=== PATIENT | female | born 1955 | race Caucasian/White ===

== ENCOUNTER 2018-01-13 13:38 | Emergency (ER) | payer OTHER, SELFPAY ==
[2018-01-13 13:39] VITALS: BP 149/80; PULSE 64; RESP 16; TEMP 36.6; O2SAT 96; BMI 23.1
--- NOTE | 2018-01-13 13:54 | RAD_ITS ---
STUDY: X-RAY - RIGHT WRIST REASON FOR EXAM: Female, 62 years old. Status post fall TECHNIQUE: 3 view(s) of the wrist were obtained. COMPARISON: None. FINDINGS: Is a comminuted intra-articular fracture of the distal radius with fracture extending into the radioulnar and radiocarpal joints. There is volar apex angulation with dorsal tilt and fragmentation. There is a suggestion of a minimal fracture of the ulnar styloid process. There is questionably a cleft versus nondisplaced fracture of the scaphoid. There is widening of the scapholunate articulation suggesting a sprain of the scapholunate interosseous ligament. Normal carpometacarpal articulation of the thumb. Normal second through fifth carpometacarpal articulations. There is demineralization of the metacarpal bones. There is soft tissue swelling. RAD/Wrist min 3 Views IMPRESSION: Fracture of the distal radius with comminution and intra-articular extension. There is a cleft versus fracture of the scaphoid. There is a widened appearance of the scapholunate space compatible with strain and/or ligamentous injury. Punctate fracture fragment from the ulnar styloid process. Electronically Signed: Khadijah Loera MD at 14:46 EST Tel , Service support ,
--- NOTE | 2018-01-13 14:04 | ED.DCSUM_ITS ---
- ER Visit Summary Date of Service: 01/13/18 Chief Complaint: Fall and right wrist injury History of Present Illness: The patient is a 62 F [id number]. History of hypertension and hypothyroidism. Patient had no prior surgeries. States she slipped in the mud approximately an hour ago. She tried to catch herself and injured her right wrist. She believes it to be broken. She denies other injuries. She did not hit her head. She denies any LOC. No back pain nor hip pain. Physical Examination: Older female no acute distress. Vital signs are stable afebrile. H EENT exam atraumatic. Pupils round reactive light. No signs of trauma to her face or scalp. Nontender. C-spine and back nontender. Trachea midline. Lungs clear to auscultation bilaterally. Chest wall nontender. Heart regular rate and rhythm no murmur. Abdomen soft nontender. Pelvic girdle intact. Both lower extremities are nontender with normal range of motion. 5 out of 5 dorsi and plantar flexion. Left upper extremity is nontender with normal chief of planning strength. Her right shoulder, upper arm, elbow are all nontender. No deformities. Her right wrist has tenderness to palpation and appears to be deformed. She does have a palpable radial pulse. Skin is intact. She is able to wiggle her fingers and has normal touch sensation and cap refill to the right fingertips. Skin is intact. Neurologically she is awake and alert with no focal motor or sensory deficits. Test Results: Three-view right wrist x-ray shows distal comminuted radius fracture into the intra-articular joint. There is dorsal displacement. Radiologist commented on cannot rule out a scaphoid fracture. Emergency Department Course and Treatment: Patient treated with [place] for pain. Discussed options of splinting the fracture at its current position versus attempted reduction. Patient preferred reduction. She was consciously sedated with 60 mg IV of propofol. Discharge myself in a director [employer] of nursing were present in the room. He was able to manually reduce the fracture and placed the patient in a short arm AP Ortho-Glass splint. She will be placed in a sling. Patient woke up from the propofol without any difficulty. Her vital signs remained stable the entire time. Treatment Plan: Ice and elevate. Keep splint dry and clean. [place] and Motrin for pain and inflammation. Call and follow-up with Dr. Rae Buckner's office tomorrow and be seen this week. Disposition: Discharge Impression: Acute fall Acute right wrist distal radius fracture Conscious sedation by ER using propofol Fracture reduction by ER Short arm AP splint by ER This note was generated with [employer] dictation software. It may contain incorrect words, spelling, and punctuation that were not noted in review of the chart prior to signing ED Disposition - Plan for ED Patient: Disposition: Home or Assisted Living Chief Complaint: Upper Extremity Injury Instructions: ED Fx Wrist General Referrals: Rae Buckner, [STAFF PHYSICIAN] - As soon as possible Additional Instructions: Ice and elevate your right wrist. Keep the splint dry and clean. Motrin and [place] as needed for pain. Call and follow-up with Dr. Rae Buckner of orthopedics as soon as possible or any orthopedic surgeon of your choice.
--- NOTE | 2018-01-13 14:04 | ED.DEP ---
ED Disposition - Plan for ED Patient: Disposition: Home or Assisted Living Chief Complaint: Upper Extremity Injury Instructions: ED Fx Wrist General Prescriptions: Hydrocodone/Acetaminophen [[place] 5-325 Tablet] 1 ea PO Q4H PRN PRN 7 Days #20 tab PRN Reason: Pain Referrals: Rae Buckner DO [STAFF PHYSICIAN] - As soon as possible Additional Instructions: Ice and elevate your right wrist. Keep the splint dry and clean. Motrin and [place] as needed for pain. Call and follow-up with Dr. Rae Buckner of orthopedics as soon as possible or any orthopedic surgeon of your choice.
--- NOTE | 2018-01-13 14:07 | DCINST.ED_ITS ---
ED Disposition - Plan for ED Patient: Disposition: Home or Assisted Living Chief Complaint: Upper Extremity Injury Instructions: ED Fx Wrist General Prescriptions: Hydrocodone/Acetaminophen [[place] 5-325 Tablet] 1 ea PO Q4H PRN PRN 7 Days #20 ta b PRN Reason: Pain Referrals: Rae Buckner DO [STAFF PHYSICIAN] - As soon as possible Additional Instructions: Ice and elevate your right wrist. Keep the splint dry and clean. Motrin and [place] as needed for pain. Call and follow-up with Dr. Rae Buckner of orthopedics as soon as possible or any orthopedic surgeon of your choice.
[2018-01-13] MEDS: HYDROcodone Bitartrate/Apap 5/325 Tablet PO (14:16)
[2018-01-13 15:54] VITALS: BP 147/86; BP 154/87; BP 155/85; BP 159/88; PULSE 62; PULSE 67; PULSE 68; PULSE 75; RESP 16; RESP 17; RESP 21; RESP 22; O2SAT 100; O2SAT 98
[2018-01-13] MEDS: Propofol 200 MG/20 ML Vial IV BOLUS (15:55)
--- NOTE | 2018-01-13 16:05 | RAD_ITS ---
STUDY: X-RAY - RIGHT WRIST REASON FOR EXAM: Female, 62 years old. Post reduction TECHNIQUE: Two view(s) of the RIGHT wrist were obtained. COMPARISON: Right wrist images from the same day FINDINGS: Bones: Cortical disruption is again seen in the distal radius. Joints: There are mild degenerative changes in the first CMC joint. Soft tissues: There is diffuse soft tissue swelling. Overlying cast or splint material is present. Foreign body: None RAD/Wrist 2 Views IMPRESSION: Improved alignment of the comminuted distal right radial fracture with intra-articular extension. There is no longer dorsal angulation of the distal aspect. Electronically Signed: Audra Ortiz MD at 18:27 EST Tel Direct: [phone], Service support ,
[2018-01-13 16:25] VITALS: BP 139/81; PULSE 73; RESP 19; O2SAT 97
--- NOTE | 2018-01-13 16:28 | DCINST.ED_ITS ---
ED Disposition - Plan for ED Patient: Disposition: Home or Assisted Living Chief Complaint: Upper Extremity Injury Instructions: ED Fx Wrist General Prescriptions: Hydrocodone/Acetaminophen [[place] 5-325 Tablet] 1 each PO Q4H PRN PRN #20 tablet PRN Reason: Pain Referrals: Rae Buckner DO [STAFF PHYSICIAN] - As soon as possible Additional Instructions: Ice and elevate your right wrist. Keep the splint dry and clean. Motrin and [place] as needed for pain. Call and follow-up with Dr. Rae Buckner of orthopedics as soon as possible or any orthopedic surgeon of your choice.
[2018-01-13 16:46] VITALS: RESP 16
--- NOTE | 2018-01-13 16:47 | ED.RN ---
REVIEWED D/C INSTRUCTIONS, FOLLOW UP CARE, PRESCRIPTIONS, AND S/S THAT WOULD WARRANT A RETURN TO THE ED WITH PT. PT VERBALIZED AN UNDERSTANDING AN DENIES FURTHER QUESTIONS FOR THIS RN. PT SKIN P/W/D, RESP EVEN AND UNLABORED, PT S&O X 3, NO DISTRESS NOTED. PT AMBULATED OUT OF ED, GAIT STEADY.
--- OUTSIDE RECORDS SUMMARY | 2018-03-08 23:51 | XMS RPT_ITS ---
:1955 Author Organization OHIP Care Team Providers Name Role Phone SUSAN BEE Attending Unavailable SUSAN BEE Primary Care Unavailable PABLO CALABRESE MD Attending Unavailable SUSAN BEE Primary Care Unavailable PABLO CALABRESE MD Attending Unavailable SUSAN BEE Primary Care Unavailable Rinku Mckeon Attending Unavailable Susan Bee Referring Unavailable Jayy Anderson Attending Unavailable Rae Buckner Referring Unavailable Susan Bee Primary Care Unavailable Johnathan Acevedo Attending Unavailable Rinku Mckeon Attending Unavailable Susan Bee Referring Unavailable Rae Buckner Attending Unavailable Rae Buckner Referring Unavailable Susan Bee Primary Care Unavailable Edwin Gonzalez Consulting Unavailable Rae Buckner Attending Unavailable PROBLEMS PROBLEMS DATE TYPE CONDITION / CODE ATTENDING STATUS SOURCE 01/28/2018 Unknown S52.571A - Other Ch[place], Active [facility] intraarticular Rae [facility] fracture of lower end Hospital of right radius, Repository initial encounter for closed fracture / S52.571A(ICD-10) 01/25/2018 Unknown R00.1 - Bradycardia, Monica, Jayy Active [facility] unspecified / Community R00.1(ICD-10) Hospital Repository 01/25/2018 Unknown R94.31 - Abnormal [place], [place] Active [facility] electrocardiogram Community [ECG] [EKG] / Hospital R94.31(ICD-10) Repository 01/13/2018 Unknown S62.101A - Fracture of Acevedo, Active [facility] unspecified carpal Johnathan [facility] bone, right wrist, Hospital initial encounter for Repository closed fracture / S62.101A(ICD-10) PROCEDURES PROCEDURES No Procedure Records FoundRESULTS RESULTS ORTHOPEDIC VISIT Observed: 01/22/2018 Status: F Source: [facility] REPORT 12:37 PM [facility] REPOSITORY [facility] OS Orthopaedics AND Sports Medicine [facility] [place] [address] OFFICE VISIT Date of Service: 01/22/18 MR#: [id number] Acct: [id number] Name: MECHELLE ÁLVAREZ Rep #: [id number] : 1955 Provider: ESTEFANIA Mckeon Age/Sex: 62/F Location[place] [facility] [place] Status: Signed Intake Intake Visit Reasons: RIGHT WRIST Allergies No Known Allergies Allergy (Verified 01/16/18 08:46) Medications Atenolol 50 mg PO DAILY 05/11/16 [History Confirmed 01/16/18] Levothyroxine [Synthroid] 75 mcg PO QHS 05/11/16 [History Confirmed 01/16/18] Lisinopril 10 mg PO QHS 05/11/16 [History Confirmed 01/16/18] Hydrocodone/Acetaminophen [Juliette 5-325 Tablet] 1 ea PO Q4H PRN PRN #20 tab 01/13/18 [Rx Confirmed 01/16/18] Cholecalciferol (Vitamin D3) [Vitamin D3] 2,000 unit PO DAILY 01/16/18 [History Confirmed 01/16/18] Estrogen,Con/M-Progest Acet [Prempro 0.3 mg-1.5 mg Tablet] 1 ea PO Q5D 01/16/18 [History Confirmed 01/16/18] Fluticasone 0.05% [Flonase Nasal Thomson] 1 spray NASAL DAILY PRN 01/16/18 [History Confirmed 01/16/18] PFSH Social History Smoking Status: Never smoker HPI RIGHT WRIST: Details: MECHELLE ÁLVAREZ is a 62 year old F here today for followup following ORIF right wrist on January 18, 2018. Patient is splinted. Patient states she takes occasional Juliette for pain. She is elevating her wrist. Patient states pain is about a 4 on pain scale. she has some swelling and difficulties with motion of her fingers. She denies numbness or tingling. Ortho Exam Right Wrist/Hand Skin/Wound: Yes Swelling, Yes Ecchymosis Contralateral Normal: Yes Right Wrist: Yes TTP Fracture site; no ROM-Extension 0-60, ROM-Flexion 0-80, Durken's Test, ROM-Supination 0-90 or ROM-Pronation 0-80 Sensation: Radial: I, Ulnar: I, Median: I WRIST: Patient has some generalized swelling of the wrist with some swelling into the fingers as well. Incision site is clean and dry without any redness or discharge indicating infection. She has some stiffness of the fingers due to swelling. she has normal sensation through the hand / fingers. She has minor tenderness in palpation of the distal radius. Left Wrist/Hand Skin/Wound: Yes Swelling, Yes Ecchymosis Assessment AND Plan Problems 1. Status post wrist surgery Z98.890 Plan Patient is doing well post-op at this time. She has some mild swelling of the wrist and some into the fingers which is to be expected. She needs continue to keep the hand elevated and continue to work on use of the fingers to get the swelling out. Incision looks great today without any signs of infection. She can get the area wet but do not soak it. Pat it dry. She is to wear the splint at all times (other than bathing) limiting use of her wrist until she comes in for 2 week post-op check. Will get X-rays at that time and start her in occupational therapy. Monitor and notify of any redness, swelling, increase in pains, or discharge from the incision site in the mean time. Plan Detail Follow Up 10 Days Coding Level of Care Code Global Post Op Diagnoses Status post wrist surgery Z98.890 01/22/18 1237 <Electronically signed by Rinku MAC> Date Rinku MAC Cosigner Signature: Date (if applicable) CC: OPERATIVE REPORT Observed: 01/22/2018 Status: F Source: [place] 12:13 PM [facility] REPOSITORY [facility] Medical Records Department [address] [place] [address] Operative Report 01/18/18 0704 MR#: [id number] Acct: [id number] Name: MECHELLE ÁLVAREZ Rep #: [id number] : 1955 62 From: Rae Buckner DO PCP: Susan Bee DO Status: [facility] Location: [facility] Report of Operation Date of Procedure: 01/18/18 Pre-Operative Diagnosis: right intraarticular distal radius fracture Post-Operative Diagnosis: same Surgery/Procedure Performed:: orif right distal radius Type of Anesthesia:: General Anesthesiologist: Abhi Dozier Estimated Blood Loss (mL): minimal Fluids Replaced: 700cc lr Description of Procedure: Preoperative note Patient is a 62-year-old female who fell onto an outstretched right hand. Patient seen in the office noted that she had a intra-articular displaced distal radius fracture, patient was neurovascularly intact she only had pain in the distal radius. Secondary survey was negative. Risks benefits and alternatives surgery discussed with patient. Risks include but not limited to blood loss, blood clot, infection, neurovascular injury and failure procedure loss of life and loss of limb. Patient is aware like proceed with right open reduction internal fixation repair is indicated. Operative note Patient seen and examined preoperative holding area. Right wrist was marked. Patient brought to the operating placed supine on the operating table. Signing, anesthesia, antibiotics were administered. The right arm was prepped and draped in usual sterile fashion with a tourniquet around her upper arm. We marked out our incision for our distal radius open reduction internal fixation. The right arm was elevated exsanguinated tourniquet was raised her pressure 250 torr. Timeout was performed. We then used a 15 blade to cut through the skin was right over top of the FCR about a 4-5 cm incision we dissected down times the level of the FCR FCR was released and moved ulnarly. We dissected down to the FCR remove this as well ulnarly down to the pronator quadratus which was excised sharply from its radial border with a 15 blade we then used a arrieta elevator to sweep it off the distal radius. We noted that we had a split that extended from the distal radius radial styloid proximally as well as intra-articularly. We reduced this with 2 K wires. We know there was also some periosteum attached to the fracture site the provisionally before we use the K wires we did clean out the fracture site. With a combination of a Woodruff and a bone pick. We then irrigated the fracture site with copious muscle sterile saline. We again placed the K wires across the fracture site for good reduction was noted on AP and lateral planes good reduction of her fracture site. We then picked out our 2.4 variable angle LCP Synthes 2 column volar distal radius plate. We provisionally in place our radial styloid screws to secure the plate down to bone. We placed 222 2.4 cortical screws into the radial styloid we had good reduction again of the fracture site as well as the radial styloid piece back to to the shaft. We then placed 3 locking screws sequentially in the ulnar distal to proximal and then our last proximal radial screw hole was placed locking screw see chart for further details. After that we had good reduction of the fracture site and then placed our shaft screws we placed our first screw in the oblong hole was measured to be 12 mm drilled appropriately placed that one first which then secured the plate down to bone and re-create our volar tilt. We placed then 2 more 2.7 cortical screws proximally in standard technique. We took multiple images in multiple planes AP and lateral and 20degrees lateral angulation. We irrigated the incision with copious muscle sterile saline. We then sewed the pronator quadratus back to its periosteum again irrigated the incision with copious muscle sterile saline subcuticular layer was closed with 3-0 Vicryl and the skin was closed with 4-0 running Monocryl. Sterile dressings and a splint was applied. Patient tolerated procedure well there are no complications tourniquet was deflated for total working time of 55 minutes. Patient transferred to recovery room in stable condition. Next Postoperative note May use fingers and thumb as tolerated next Patient has Vicodin from the ER Follow-up in 2 weeks with x-rays Call with increased pain numbness tingling further issues arise This note was generated with [employer] dictation software. It may contain incorrect words, spelling, and punctuation that were not noted in checking the note before signing. 01/22/18 1213 <Electronically signed by Rae Buckner DO> Date Rae Buckner DO CC: Rae Buckner DO; Edwin Gonzalez MD; Susan Bee DO Signed 12 LEAD ELECTROCARDIOGRAM Observed: 01/18/2018 Status: F Source: [place] 2:41 PM [facility] REPOSITORY [facility] Cardiovascular Services [address] [place] [address] 12 Lead EKG 01/17/18 1014 MR#: [id number] Acct: [id number] Name: MECHELLE ÁLVAREZ Rep #: [id number] : 1955 62 From: Jayy Anderson MD Attending Dr: Rae Buckner DO Status: DEP [facility] Ordering Dr: Rae Buckner DO Date: 01/17/18 Location: [facility] Sex: F C Admitted: Test Reason : PREOP Blood Pressure : / mmHG Vent. Rate : 052 BPM Atrial Rate : 052 BPM P-R Int : 144 ms QRS Dur : 076 ms QT Int : 418 ms P-R-T Axes : 054 002 -05 degrees QTc Int : 388 ms Sinus bradycardia Nonspecific ST abnormality Abnormal ECG Confirmed by JAYY ANDERSON MD ([id number]), department editor BENTLEY JONAS ([id number]) on 01/18/2018 2:41:29 PM Referred By: Rae Buckner Confirmed By:JAYY ANDERSON MD 01/18/18 1441 Date Jayy Anderson MD CC: Rae Buckner DO; Susan Bee DO Signed DISCHARGE INSTRUCTION Observed: 01/18/2018 Status: F Source: [place] 7:04 AM [facility] REPOSITORY [facility] Medical Records Department [address] [place] [address] Instructions for Home/Discharge Instructions 01/18/18 0703 MR#: [id number] Acct: [id number] Name: MECHELLE ÁLVAREZ Rep #: [id number] : 1955 62 From: Rae Buckner DO PCP: Susan Bee DO Status: REG MDC Discharge Diet: No Restrictions - leave dressing clean, dry and intact, move fingers, elevate hand above heart, follow up in 2 weeks, call with concerns Discharge Activity: May Not Drive May shower in (days): 1 Ice area for (Minutes): 20 - Every hour while awake. Weight Bearing Status: Weight bearing as tolerated Keep extremity elevated above heart level: Operative Extremity Call your doctor if your incision/area has: Continuous Slow Oozing, Sudden Increased Bleeding, Increased Pain/ Swelling, Increased Redness, Foul Smelling Discharge Call your doctor if you observe: Fever of 101 or Higher, Coldness, Increased Pain, Numbness or Tingling, Change in Color, Calf discomfort Allergies/Adverse Reactions: Allergies No Known Allergies Allergy (Verified 01/16/18 08:46) Medications to take at Discharge Atenolol 50 mg PO DAILY 05/11/16 Levothyroxine [Synthroid] 75 mcg PO QHS 05/11/16 Lisinopril 10 mg PO QHS 05/11/16 Hydrocodone/Acetaminophen [Juliette 5-325 Tablet] 1 each PO Q4H PRN PRN #20 tablet 01/13/18 Cholecalciferol (Vitamin D3) [Vitamin D3] 2,000 unit PO DAILY 01/16/18 Estrogen,Con/M-Progest Acet [Prempro 0.3 mg-1.5 mg Tablet] 1 each PO Q5D 01/16/18 Fluticasone 0.05% [Flonase Nasal Thomson] 1 spray NASAL DAILY PRN 01/16/18 Orders to be completed after discharge: 12 Lead EKG [CVS] Time Frame: 01/17/18, Location: None Selected Thyroid Stim Hormone (TSH) Time Frame: 01/17/18, Location: Laboratory Primary Care Physician: Susan Bee DO [Primary Care Provider] - Test Results: Test results from this visit will be discussed in further detail at your follow-up appointment, if applicable. Please Follow Up With: Rae Buckner DO - [phone] 01/18/18 0704 <Electronically signed by Rae Buckner DO> Date Rae Buckner DO CC: Edwin Gonzalez MD; Susan Bee DO WRIST MIN 3 VIEWS Observed: 01/18/2018 Status: F Source: [place] 5:05 AM [facility] REPOSITORY [facility] Imaging Services [address] [place] [address] Wrist min 3 Views MR#: [id number] Acct: [id number] Name: MECHELLE ÁLVAREZ Rep #: [id number] : 1955 F 62 From: Lazaro Martines MD PCP: Susan Bee DO Status: REG [facility] Study: Wrist min 3 Views Date of Exam: 01/18/18 Exam# [id number] Ordering Dr: Rae Buckner DO STUDY: X-RAY - RIGHT WRIST REASON FOR EXAM: Female, 62 years old. Intraoperative digital documentation images of ORIF of distal radius. TECHNIQUE: 4 intraoperative digital documentation view(s) of the wrist were obtained. COMPARISON: January 13, 2018 FINDINGS: 23.9 seconds of fluoroscopy time were utilized for a dose of 0.47 mGy. 4 intraoperative digital documentation images show a volar plate and screw fixation with anatomic alignment at the previously described fracture site. RAD/Wrist min 3 Views IMPRESSION: Intraoperative digital documentation images as described. Electronically Signed: Lazaro Martines MD at 12:04 EST , Service support , CC: Rae Buckner DO; Susan Bee DO Coordinator Of Health Services: Signed ORTHOPEDIC VISIT Observed: 01/17/2018 Status: F Source: [place] REPORT 11:10 AM [facility] REPOSITORY [facility] Orthopaedics AND Sports Medicine [address] [place] [address] OFFICE VISIT Date of Service: 01/15/18 MR#: [id number] Acct: [id number] Name: MECHELLE ÁLVAREZ Rep #: [id number] : 1955 Provider: ESTEFANIA Mckeon Age/Sex: 62/F Location: [facility] [place].[facility] Status: Signed Intake Vital Signs01/15/18 Body Mass Index (BMI) 23.1 01/15/18 Height 5 ft 4 in 01/15/18 Weight: 135 lb 01/15/18 Body Mass Index (BMI) 23.1 Intake Visit Reasons: RIGHT WRIST Is patient in pain?: Yes Pain scale (1-10): 5 Allergies No Known Allergies Allergy (Verified 01/16/18 08:46) Medications Atenolol 50 mg PO DAILY 05/11/16 [History Confirmed 01/16/18] Levothyroxine [Synthroid] 75 mcg PO QHS 05/11/16 [History Confirmed 01/16/18] Lisinopril 10 mg PO QHS 05/11/16 [History Confirmed 01/16/18] Hydrocodone/Acetaminophen [Juliette 5-325 Tablet] 1 ea PO Q4H PRN PRN #20 tab 01/13/18 [Rx Confirmed 01/16/18] Cholecalciferol (Vitamin D3) [Vitamin D3] 2,000 unit PO DAILY 01/16/18 [History Confirmed 01/16/18] Estrogen,Con/M-Progest Acet [Prempro 0.3 mg-1.5 mg Tablet] 1 ea PO Q5D 01/16/18 [History Confirmed 01/16/18] Fluticasone 0.05% [Flonase Nasal Thomson] 1 spray NASAL DAILY PRN 01/16/18 [History Confirmed 01/16/18] PFSH Social History Smoking Status: Never smoker HPI RIGHT WRIST: Details: MECHELLE ÁLVAREZ is a 62 year old F here today for ED f/u on right fractured wrist. She slipped in the mud on sunday working outside and tried to catch herself. She presents in a splint with swelling in the finger and some numbness. She has some discoloration presenting, the pain meds are helpful and she is using them prn. Ortho Exam Right Wrist/Hand Skin/Wound: Yes Swelling, Yes Ecchymosis Right Wrist: Yes TTP Fracture site; no ROM-Flexion 0-80, ROM- Pronation 0-80, ROM-Extension 0-60 or ROM-Supination 0-90 WRIST: Patient presents acutely in a volar and ulnar splint secured with an Vicente wrap. She has evident generalized swelling of the area with some minor pain at the fracture site. There is some swelling of the fingers as well. She does have normal sensation and movement of the fingers. Left Wrist/Hand Skin/Wound: Yes Swelling, Yes Ecchymosis Assessment AND Plan Problems 1. Other closed intra-articular fracture of distal end of right radius, initial encounter S52.841A Plan Today in the office we did review anatomy and physiology of the wrist as well as pathophysiology of her injury. We did review her x-rays with patient and her in the room. We discussed that this being an intra-articular fracture that treatment often includes surgical fixation. At this point the fracture shows pretty good congruency in the joint at the same time we discussed the possibility of this moving some once the swelling goes down. We discussed treatment options that are conservative versus aggressive which would include surgery. She will be in a cast for 6-8 weeks with conservative treatment and then undergo occupational therapy once out of the cast. We discussed surgical options including the risks and benefits of the surgery. ORIF would allow her to be in a splint for 2 weeks and then begin occupational therapy at 2 weeks to prevent stiffness. Regardless of conservative versus aggressive therapy we did discuss that there is an increased risk for arthritis of the joint due to this fracture being intra-articular. All of her questions were answered regarding this option. At this time patient would like to proceed with surgical intervention (ORIF of right wrist). Again all of her questions were answered and consent was signed today. We discussed surgical protocol including preanesthesia testing which will be done by phone. Patient is to be n.p.o. the night before starting midnight. She will not know the time of her schedule until the day before in the afternoon. She should remain in the splint in the meantime and we will do surgical scrub prior to procedure. Patient will follow- up in our office for 5 days after procedure to have bulky dressing taken down in later dressing applied. She can notify the office sooner with any other questions in the meantime. This note was generated with [employer] dictation software. It may contain incorrect words, spelling, and punctuation that were not noted in checking the note before signing. Coding Level of Care Code Off vis,new,level 3 Diagnoses Other closed intra-articular fracture of distal end of right radius, initial encounter S52.571A Encounter type: initial encounter Fracture type: closed Fracture morphology: other intra-articular 01/17/18 1110 <Electronically signed by Rinku MAC> Date Rinku MAC Cosigner Signature: Date (if applicable) CC: THYROID STIM HORMONE Collected: 01/17/2018 Status: F Source: [place] (TSH) 9:57 AM [facility] REPOSITORY TYPE CODE TESTS RESULT OUT OF RANGE REFERENCE UNITS LAB L501.9520 0.358-3.74 uIU/mL Normal TSH 3.23 Performed By: #### L501.9520 #### [facility] Health[facility] [place], [address]41 DISCHARGE INSTRUCTION Observed: 01/13/2018 Status: F Source: [place] 4:37 PM [facility] REPOSITORY [facility] Medical Records Department [address] [place] [address] Discharge Instruction 01/13/18 1627 MR#: [id number] Acct: [id number] Name: MECHELLE ÁLVAREZ Rep #: [id number] : 1955 62 From: Johnathan Acevedo MD PCP: Susan Bee DO Status: REG ER ED Disposition - Plan for ED Patient: Disposition: Home or Assisted Living Chief Complaint: Upper Extremity Injury Instructions: ED Fx Wrist General Prescriptions: Hydrocodone/Acetaminophen [Juliette 5-325 Tablet] 1 each PO Q4H PRN PRN #20 tablet PRN Reason: Pain Referrals: Rae Buckner DO [STAFF PHYSICIAN] - As soon as possible Additional Instructions: Ice and elevate your right wrist. Keep the splint dry and clean. Motrin and Juliette as needed for pain. Call and follow-up with Dr. Rae Buckner of orthopedics as soon as possible or any orthopedic surgeon of your choice. What to do if you have Problems For any increased pain, shortness of breath, bleeding, nausea or vomiting, chest pain, or any unexpected problems, contact your Primary Care Provider. Call [facility] ([phone]) or report to the closest Emergency Room. Call 911 if necessary. 01/13/18 7437 <Electronically signed by Johnathan Acevedo MD> Date Johnathan Acevedo MD Cosigner Signature (If Indicated): Date CC: Susan Bee DO EMERGENCY DEPARTMENT Observed: 01/13/2018 Status: F Source: [facility] SUMMARY 4:37 PM [facility] REPOSITORY [facility] Medical Records Department [address] [place] [address] Emergency Department Summary 01/13/18 1402 MR#: [id number] Acct: [id number] Name: MECHELLE ÁLVAREZ Rep #: [id number] : 1955 62 From: Johnathan Acevedo MD PCP: Susan Bee DO Status: REG ER - ER Visit Summary Date of Service: 01/13/18 Chief Complaint: Fall and right wrist injury History of Present Illness: The patient is a 62 F [id number]. History of hypertension and hypothyroidism. Patient had no prior surgeries. States she slipped in the mud approximately an hour ago. She tried to catch herself and injured her right wrist. She believes it to be broken. She denies other injuries. She did not hit her head. She denies any LOC. No back pain nor hip pain. Physical Examination: Older female no acute distress. Vital signs are stable afebrile. H EENT exam atraumatic. Pupils round reactive light. No signs of trauma to her face or scalp. Nontender. C-spine and back nontender. Trachea midline. Lungs clear to auscultation bilaterally. Chest wall nontender. Heart regular rate and rhythm no murmur. Abdomen soft nontender. Pelvic girdle intact. Both lower extremities are nontender with normal range of motion. 5 out of 5 dorsi and plantar flexion. Left upper extremity is nontender with normal training program developer strength. Her right shoulder, upper arm, elbow are all nontender. No deformities. Her right wrist has tenderness to palpation and appears to be deformed. She does have a palpable radial pulse. Skin is intact. She is able to wiggle her fingers and has normal touch sensation and cap refill to the right fingertips. Skin is intact. Neurologically she is awake and alert with no focal motor or sensory deficits. Test Results: Three-view right wrist x-ray shows distal comminuted radius fracture into the intra-articular joint. There is dorsal displacement. Radiologist commented on cannot rule out a scaphoid fracture. Emergency Department Course and Treatment: Patient treated with Juliette for pain. Discussed options of splinting the fracture at its current position versus attempted reduction. Patient preferred reduction. She was consciously sedated with 60 mg IV of propofol. Discharge myself in a clinical nursing director were present in the room. He was able to manually reduce the fracture and placed the patient in a short arm AP Ortho-Glass splint. She will be placed in a sling. Patient woke up from the propofol without any difficulty. Her vital signs remained stable the entire time. Treatment Plan: Ice and elevate. Keep splint dry and clean. Juliette and Motrin for pain and inflammation. Call and follow-up with Dr. Rae Buckner's office tomorrow and be seen this week. Disposition: Discharge Impression: Acute fall Acute right wrist distal radius fracture Conscious sedation by ER using propofol Fracture reduction by ER Short arm AP splint by ER This note was generated with [employer] dictation software. It may contain incorrect words, spelling, and punctuation that were not noted in review of the chart prior to signing ED Disposition - Plan for ED Patient: Disposition: Home or Assisted Living Chief Complaint: Upper Extremity Injury Instructions: ED Fx Wrist General Referrals: Rae Buckner DO [STAFF PHYSICIAN] - As soon as possible Additional Instructions: Ice and elevate your right wrist. Keep the splint dry and clean. Motrin and Juliette as needed for pain. Call and follow-up with Dr. Rae Buckner of orthopedics as soon as possible or any orthopedic surgeon of your choice. What to do if you have Problems For any increased pain, shortness of breath, bleeding, nausea or vomiting, chest pain, or any unexpected problems, contact your Primary Care Provider. Call [facility] ([phone]) or report to the closest Emergency Room. Call 911 if necessary. 01/13/18 1007 <Electronically signed by Johnathan Acevedo MD> Date Johnathan Acevedo MD Cosigner Signature (If Indicated): Date CC: Susan Bee DO DISCHARGE INSTRUCTION Observed: 01/13/2018 Status: F Source: [place] 4:37 PM [facility] REPOSITORY [facility] Medical Records Department [address] [place] [address] Discharge Instruction 01/13/18 1404 MR#: [id number] Acct: [id number] Name: MECHELLE ÁLVAREZ Rep #: [id number] : 1955 62 From: Johnathan Acevedo MD PCP: Susan Bee DO Status: REG ER ED Disposition - Plan for ED Patient: Disposition: Home or Assisted Living Chief Complaint: Upper Extremity Injury Instructions: ED Fx Wrist General Prescriptions: Hydrocodone/Acetaminophen [Juliette 5-325 Tablet] 1 ea PO Q4H PRN PRN 7 Days #20 tab PRN Reason: Pain Referrals: Rae Buckner DO [STAFF PHYSICIAN] - As soon as possible Additional Instructions: Ice and elevate your right wrist. Keep the splint dry and clean. Motrin and Juliette as needed for pain. Call and follow-up with Dr. Rae Buckner of orthopedics as soon as possible or any orthopedic surgeon of your choice. What to do if you have Problems For any increased pain, shortness of breath, bleeding, nausea or vomiting, chest pain, or any unexpected problems, contact your Primary Care Provider. Call [facility] ([phone]) or report to the closest Emergency Room. Call 911 if necessary. 01/13/18 1637 <Electronically signed by Johnathan Acevedo MD> Date Johnathan Acevedo MD Cosigner Signature (If Indicated): Date CC: Susan Bee DO WRIST 2 VIEWS Observed: 01/13/2018 Status: F Source: [place] 4:06 PM [facility] REPOSITORY [facility] Imaging Services [address] [place] [address] Wrist 2 Views MR#: [id number] Acct: [id number] Name: MECHELLE ÁLVAREZ Rep #: [id number] : 1955 F 62 From: Audra Ortiz MD PCP: Susan Bee DO Status: DEP ER Study: Wrist 2 Views Date of Exam: 01/13/18 Exam# [id number] Ordering Dr: Johnathan Acevedo MD STUDY: X-RAY - RIGHT WRIST REASON FOR EXAM: Female, 62 years old. Post reduction TECHNIQUE: Two view(s) of the RIGHT wrist were obtained. COMPARISON: Right wrist images from the same day FINDINGS: Bones: Cortical disruption is again seen in the distal radius. Joints: There are mild degenerative changes in the first CMC joint. Soft tissues: There is diffuse soft tissue swelling. Overlying cast or splint material is present. Foreign body: None RAD/Wrist 2 Views IMPRESSION: Improved alignment of the comminuted distal right radial fracture with intra-articular extension. There is no longer dorsal angulation of the distal aspect. Electronically Signed: Audra Ortiz MD at 18:27 EST Tel Direct: [phone], Service support , CC: Johnathan Acevedo MD; Susan Bee DO Coordinator Of Health Services: Signed WRIST MIN 3 VIEWS Observed: 01/13/2018 Status: F Source: [place] 1:54 PM [facility] REPOSITORY [facility] Imaging Services [address] [place] [address] Wrist min 3 Views MR#: [id number] Acct: [id number] Name: MECHELLE ÁLVAREZ Rep #: [id number] : 1955 F 62 From: Khadijah Loera MD PCP: Susan Bee DO Status: PRE ER Study: Wrist min 3 Views Date of Exam: 01/13/18 Exam# [id number] Ordering Dr: Johnathan Acevedo MD STUDY: X-RAY - RIGHT WRIST REASON FOR EXAM: Female, 62 years old. Status post fall TECHNIQUE: 3 view(s) of the wrist were obtained. COMPARISON: None. FINDINGS: Is a comminuted intra-articular fracture of the distal radius with fracture extending into the radioulnar and radiocarpal joints. There is volar apex angulation with dorsal tilt and fragmentation. There is a suggestion of a minimal fracture of the ulnar styloid process. There is questionably a cleft versus nondisplaced fracture of the scaphoid. There is widening of the scapholunate articulation suggesting a sprain of the scapholunate interosseous ligament. Normal carpometacarpal articulation of the thumb. Normal second through fifth carpometacarpal articulations. There is demineralization of the metacarpal bones. There is soft tissue swelling. RAD/Wrist min 3 Views IMPRESSION: Fracture of the distal radius with comminution and intra-articular extension. There is a cleft versus fracture of the scaphoid. There is a widened appearance of the scapholunate space compatible with strain and/or ligamentous injury. Punctate fracture fragment from the ulnar styloid process. Electronically Signed: Khadijah Loera MD at 14:46 EST Tel , Service support , CC: Johnathan Acevedo MD; Susan Bee DO Coordinator Of Health Services: Signed MA MAMMOGRAM SCREENING Observed: 08/08/2017 Status: F Source: [facility] BILATERAL W/DIMAS 11:15 AM FOUNDATION REPOSITORY ORIGINAL FROM: [place] [address] PROCEDURE FOR: MECHELLE ÁLVAREZ [address] [place] [id number] Home: PID#: [id number] Exam#: [id number] : 1955 Age: 61 TO: PABLO CALABRESE MD [address] [facility] [address] [place] [address] #[id number] DIGITAL SCREENING MAMMOGRAM 3D/2D WITH CAD WITH MEDIOLATERAL OBLIQUE CRANIOCAUDAL: 08/08/2017 Comparison is made to exams dated: 08/05/2015 mammogram - [facility] and 08/07/2016 mammogram - [facility]. There are scattered fibroglandular elements in both breasts. Current study was also evaluated with a Computer Aided Detection (CAD) system. There are benign calcifications in both breasts. There also are benign scattered calcifications in the left breast. No significant masses, calcifications, or other findings are seen in either breast. There has been no significant interval change. IMPRESSION: BENIGN There is no mammographic evidence of malignancy. A 1 year screening mammogram is recommended. ARISTIDES BARKER MD cmbebo/vivien:08/08/2017 18:43:21 copy to: SUSAN BEE DO, ph: [phone], fax: [phone] Infection Control Coordinator: DYLON WHITE RT(R), [facility] letter sent: Normal BI-RADS 1&2 Mammogram BI-RADS: 2 Benign VIDH Collected: 06/04/2017 Status: F Source: JOCYIBeiFeng 10:18 AM [facility] REPOSITORY TYPE CODE TESTS RESULT OUT OF RANGE REFERENCE UNITS LAB VIDH(LOINC) ng/mL Vit. D 61 25-Hydroxy Result Comment: Interpretive Values Based on Total 25(OH)D: Severe Deficiency <20 ng/mL Mild to Moderate Deficiency 20-30 ng/mL Optimum Levels 30-100 ng/mL Toxicity Possible >100 ng/mL Performed By: #### VIDH #### [place] [address] LIPID Collected: 03/05/2017 Status: F Source: [place]SH[place] AuthorBee 9:02 AM [facility] REPOSITORY TYPE CODE TESTS RESULT OUT OF REFERENCE UNITS RANGE LAB CHOL(LOINC 131-200 mg/dL ) Cholesterol High 246 Result Comment: Cholesterol Reference Interval: Less than 200 Desirable 200-239 Borderline high risk 240 and above High risk LAB TRIG(LOINC) 40-150 mg/dL Triglycerides 85 Result Comment: Triglyceride Reference Interval: Less than 150 Normal 150-199 Borderline high risk 200-499 High risk 500 or higher Very high risk LAB HD(LOINC) 35-90 mg/dL HDL Cholesterol 80 Result Comment: HDL Reference Interval: Less than 40 Low - high risk 60 or above Optimal/lowers risk LAB LDL(LOINC) 0-130 mg/dL LDL High Cholesterol 149 Result Comment: LDL is a calculated result and requires a 12-hr fast. LDL Reference Interval: Less than 100 Optimal 100-129 Near or above optimal 130-159 Borderline high risk 160-189 High risk 190 and above Very high risk Performed By: #### CMP, TSH, LIPID, GFR #### [place] [address] [place], [place] [address] CMP Collected: 03/05/2017 Status: F Source: JOCYCharitas 9:02 AM [facility] REPOSITORY TYPE CODE TESTS RESULT OUT OF REFERENCE UNITS RANGE LAB 1547-9 80-115 mg/dL GLUCOSE 99 LAB NA(LOINC) 136-146 mEq/L Sodium Level 138 LAB K(LOINC) 3.5-5.1 mEq/L Potassium Level 4.4 LAB CL(LOINC) 98-107 mEq/L Chloride 100 LAB CO2(LOINC) 23-31 mEq/L CO2 30 LAB EBAL(LOINC mEq/L ) Electrolyte Balance 8.0 LAB BUN(LOINC) 7.0-18.0 mg/dL BUN 9.4 LAB CRE(LOINC) 0.6-1.2 mg/dL Creatinine Lvl (s) 0.7 LAB BC(LOINC) 7-27 ratio BUN/Creatinine 13 Ratio LAB CA(LOINC) 8.4-10.2 mg/dL Calcium Lvl 9.1 LAB PROT(LOINC 6.0-8.3 G/dL ) Total Protein 7.2 LAB ALB(LOINC) 3.4-4.8 G/dL Albumin Level 4.3 LAB GLB(LOINC) G/dL Globulin 2.9 LAB AG(LOINC) 1.1-2.5 ratio A/G Ratio 1.5 LAB BILT(LOINC 0.2-1.0 mg/dL ) Bili Total 1.0 LAB AP(LOINC) 40-135 IU/L Alk Phos 52 LAB AST(LOINC) 10-40 IU/L AST/SGOT 18 LAB ALT(LOINC) 10-35 IU/L ALT/SGPT 14 Performed By: #### CMP, TSH, LIPID, GFR #### [place] [address] [place], [place] [address] .GFR Collected: 03/05/2017 Status: F Source: [place] 9:02 AM [facility] REPOSITORY TYPE CODE TESTS RESULT OUT OF REFERENCE UNITS RANGE LAB GFRAA(LOINC ml/min/1.73 ) sqm GFR 106 Icelandic Result Comment: GFR Population mean for , Non- Americans Ages 20-29 = 116 mL/min/1.73 sq.m. Ages 30-39 = 107 mL/min/1.73 sq.m. Ages 40-49 = 99 mL/min/1.73 sq.m. Ages 50-59 = 93 mL/min/1.73 sq.m. Ages 60-69 = 85 mL/min/1.73 sq.m. Ages 70+ = 75 mL/min/1.73 sq.m. Chronic Kidney Disease: Less than 60 mL/min/1.73 square meters End Stage Renal Disease: Less than 15 mL/min/1.73 square meters LAB GFRNO(LOINC) ml/min/1.73sqm GFR Non- >60 Result Comment: GFR Population mean for , Non- Americans Ages 20-29 = 116 mL/min/1.73 sq.m. Ages 30-39 = 107 mL/min/1.73 sq.m. Ages 40-49 = 99 mL/min/1.73 sq.m. Ages 50-59 = 93 mL/min/1.73 sq.m. Ages 60-69 = 85 mL/min/1.73 sq.m. Ages 70+ = 75 mL/min/1.73 sq.m. Chronic Kidney Disease: Less than 60 mL/min/1.73 square meters End Stage Renal Disease: Less than 15 mL/min/1.73 square meters Performed By: #### CMP, TSH, LIPID, GFR #### [place] [address] [place], [place] [address] TSH Collected: 03/05/2017 Status: F Source: [place] 9:02 AM [facility] REPOSITORY TYPE CODE TESTS RESULT OUT OF RANGE REFERENCE UNITS LAB TSH(LOINC) 0.27-4.20 mcIU/mL TSH 2.81 Performed By: #### CMP, TSH, LIPID, GFR #### [place] [address] [place], [place] [address] ALLERGIES ALLERGIES DATE TYPE / CODE NAME / CODE REACTION SEVERITY SOURCE 01/16/2018 Drug No Known Unknown [facility] Allergy/4160 Allergies/F00 Hospital 24920(SNOMED 8987970(RXNOR Repository CT) M) ENCOUNTERS ENCOUNTERS ADMIT/DISCHARGE ACCOUNT NUMBER ADMITTING ENCOUNTER LOCATION SOURCE CLASS 01/22/2018/01/23/20 [id number] Ambulatory BMSBuilding: [place] 18 BMS.[facility] Repository 01/18/2018/01/19/20 [id number] Ambulatory [place] [address] [place] [address] ding:SDCRoom Repository : AC02 01/18/2018/01/19/20 [id number] Ambulatory BMSBuilding: [place] 18 BMS.CF.[facility] Repository 01/17/2018 [id number] Ambulatory BMSBuilding: [place] [facility] Repository 01/15/2018/01/16/20 [id number] Ambulatory BMSBuilding: [place] 18 BMS.[facility] Repository 01/13/2018/01/14/20 [id number] Emergency [place] 18 [facility] ding:ED Repository 08/08/2017/08/09/19 [id number] Ambulatory [address] ding:[facility] Repository 06/04/2017/06/05/19 [id number] Ambulatory [address] ding:OLAB [facility] Repository 03/05/2017/03/05/19 [id number] Ambulatory [address] ding:AB [facility] Repository PAYERS PAYERS ENCOUNTER GUARANTOR PAYER SUBSCRIBER SOURCE 01/22/2018 JAROD [id number] Primary M[place] [address] [place] [address] [place] Insurance:AULTCARETravis JUNGB: [facility] JESUS ms icy Number: [id number] Hospital [address]Lzo: 330 [id number] Repository [phone] () e Date:8978-76-80[address], [place] [address]LB: 01/22/2018 Secondary NOT GIVENUNK [place] Insurance:SELF PAY [facility] Number: Effective Repository Date:2018-01-21 01/18/2018 JAROD [id number] Primary MECHELLE K [place] [address] [place] Insurance:AULTCAREPol STEVICDOB: [place] icy Number: [id number] Hospital [address]Lxk: (330) [id number] Repository [phone] () e Date:7831-45-12RM [facility] [address] [place] [address]XN: 01/18/2018 Secondary NOT GIVENUNK [place] Insurance:SELF PAY [facility] Number: Effective Repository Date:2018-01-15 01/18/2018 JAROD [id number] Primary MECHELLE K [place] Insurance:AULTCAREPol STEVICDOB: [place] icy Number: [id number] Hospital [address]Wxz: (330) [id number] Repository [phone] () e Date:8459-49-77SX [facility] [address] [place] [address]RF: 01/18/2018 Secondary NOT GIVENUNK [place] Insurance:SELF PAY [facility] Number: Effective Repository Date:2018-01-18 01/17/2018 JAROD [id number] Primary MECHELLE K [place] Insurance:AULTCAREPol STEVICDOB: [facility] [place] icy Number: [id number] Hospital [address]Fuh: (330) [id number] Repository [phone] () e Date:3293-38-68HP [facility] [address] [place] [address]VX: 01/17/2018 Secondary NOT GIVENUNK [place] Insurance:SELF PAY [facility] Hospital Number: Effective Repository Date:2018-01-17 01/15/2018 JAROD [id number] Primary MECHELLE K [place] Insurance:AULTCAREPol STEVICDOB: [place] icy Number: [id number] Hospital [address]Ddm: (330) [id number] Repository [phone] (HP) e Date:9550-11-45DY [address] [place] [address]DS: 01/15/2018 Secondary NOT GIVENUNK [place] Insurance:SELF PAY [facility] Effective Repository Date:2018-01-15 01/13/2018 JAROD [id number] [facility] MECHELLE Maldonado [address] [address] [place] [facility] STEVICDOB: [facility] [place] icy Number: [id number] Hospital [address]Ggc: (389) [id number] Repository [phone] () e Date:[id number] [address]SL: 01/13/2018 Secondary NOT GIVENUNK [place] Insurance:SELF PAY [facility] Number: Effective Repository Date:2018-01-13 08/08/2017 MECHELLE Maldonado Primary MECHELLE Maldonado [facility] STEVICDOB: Insurance:AUCARE STEVICDOB: [facility] [id number] [id number] Number: [id number] Repository [place] [id number] [address] [place], [place] e Date:2017-07-31 [place] [email or web address] [id number]: (435) RUBINheraclio: Name:WIRE WEAVING LOOM SETTER [phone] [place] [address] ()Tel: (078) (HP)Tel: [phone]: (WP) [phone] (VU) [phone] 06/04/2017 MECHELLE Maldonado [facility] MECHELLE Maldonado [facility] STEVICDOB: Insurance:AULTCARE STEVICDOB: [facility] [id number] N [address]Higuif Number: [id number] Repository [place] [id number] [address] [place] e Date:2017-06-04 [place] [email or web address] [id number]: (330) [email or web address].COMTel: Name:WIRE WEAVING LOOM SETTER [phone] [place] [address] (HP)Tel: (000) (HP)Tel: [phone]: (WP) [phone] ([phone] 03/05/2017 MECHELLE K Primary [facility]HELLE [facility] [id number] N [address]Foeyla Number: [id number] Repository [place] [id number] [address] [place] e Date:2017-03-05 [place] [email or web address] [id number]: (330) [email or web address].COMTel: Name:WIRE WEAVING LOOM SETTER [phone] [place] [address] ()Tel: (000) (HP)Tel: [phone]: (WP) [phone] (WP) [phone]
== END 2018-01-13 16:48 | disposition home or self-care (01) ==
LOC: ED 14:49
PROVIDERS: Emergency Provider Emergency Medicine; Family Provider Preventive Medicine Occupational Medicine; PCP Preventive Medicine Occupational Medicine
DX: S52.571A Other intraarticular fracture of lower end of right radius, initial encounter for closed fracture (principal); W01.0XXA Fall on same level from slipping, tripping and stumbling without subsequent striking against object, initial encounter; Y93.9 Activity, unspecified; Y92.9 Unspecified place or not applicable; I10 Essential (primary) hypertension; E03.9 Hypothyroidism, unspecified; Z79.899 Other long term (current) drug therapy
CPT/HCPCS: 25605; 73100; 73110; 99283; J7030

== ENCOUNTER 2018-01-18 05:26 | Day surgery (SDC) | payer OTHER, SELFPAY ==
[2018-01-15 12:39] VITALS: BMI 23.1
--- NOTE | 2018-01-17 10:05 | EKG12_ITS ---
Test Reason : PREOP Blood Pressure : / mmHG Vent. Rate : 052 BPM Atrial Rate : 052 BPM P-R Int : 144 ms QRS Dur : 076 ms QT Int : 418 ms P-R-T Axes : 054 002 -05 degrees QTc Int : 388 ms Sinus bradycardia Nonspecific ST abnormality Abnormal ECG Confirmed by JENIFFER WILSON, MIRELLA ([id number]), material expeditor BENTLEY JONAS ([id number]) on 01/18/2018 2:41:29 PM Referred By: Rae Buckner Confirmed By:MIRELLA SWIFT MD
[2018-01-17 11:56] LABS: Thyroid Stim Hormone (TSH) 3.23 uIU/mL (0.358-3.74)
[2018-01-18] VITALS (9 sets, daily range): BP systolic 131–163; BP diastolic 71–97; PULSE 55–72; RESP 14–18; TEMP 36.1–36.8; O2SAT 95–100; BMI 23.4
[2018-01-18] MEDS: Cefazolin 2 GM in 0.9% Normal Saline 100 ML IV (06:55)
--- NOTE | 2018-01-18 07:03 | PCM.DC.ORTHO ---
Discharge Diet: No Restrictions - leave dressing clean, dry and intact, move fingers, elevate hand above heart, follow up in 2 weeks, call with concerns Discharge Activity: May Not Drive May shower in (days): 1 Ice area for (Minutes): 20 - Every hour while awake. Weight Bearing Status: Weight bearing as tolerated Keep extremity elevated above heart level: Operative Extremity Call your doctor if your incision/area has: Continuous Slow Oozing, Sudden Increased Bleeding, Increased Pain/ Swelling, Increased Redness, Foul Smelling Discharge Call your doctor if you observe: Fever of 101 or Higher, Coldness, Increased Pain, Numbness or Tingling, Change in Color, Calf discomfort Allergies/Adverse Reactions: Allergies No Known Allergies Allergy (Verified 01/16/18 08:46) Medications to take at Discharge Atenolol 50 mg PO DAILY 05/11/16 Levothyroxine [Synthroid] 75 mcg PO QHS 05/11/16 Lisinopril 10 mg PO QHS 05/11/16 Hydrocodone/Acetaminophen [[place] 5-325 Tablet] 1 each PO Q4H PRN PRN #20 tablet 01/13/18 Cholecalciferol (Vitamin D3) [Vitamin D3] 2,000 unit PO DAILY 01/16/18 Estrogen,Con/M-Progest Acet [Prempro 0.3 mg-1.5 mg Tablet] 1 each PO Q5D 01/16/18 Fluticasone 0.05% [Flonase Nasal [place]] 1 spray NASAL DAILY PRN 01/16/18 Orders to be completed after discharge: 12 Lead EKG [CVS] Time Frame: 01/17/18, Location: None Selected Thyroid Stim Hormone (TSH) Time Frame: 01/17/18, Location: Laboratory Primary Care Physician: Noel Bee DO [Primary Care Provider] - Test Results: Test results from this visit will be discussed in further detail at your follow-up appointment, if applicable. Please Follow Up With: Rae Buckner DO - [phone]
--- NOTE | 2018-01-18 07:04 | PCM.OPRPT ---
Report of Operation Date of Procedure: 01/18/18 Pre-Operative Diagnosis: right intraarticular distal radius fracture Post-Operative Diagnosis: same Surgery/Procedure Performed:: orif right distal radius Type of Anesthesia:: General Anesthesiologist: Abhi Dozier Estimated Blood Loss (mL): minimal Fluids Replaced: 700cc lr Description of Procedure: Preoperative note Patient is a 62-year-old female who fell onto an outstretched right hand. Patient seen in the office noted that she had a intra-articular displaced distal radius fracture, patient was neurovascularly intact she only had pain in the distal radius. Secondary survey was negative. Risks benefits and alternatives surgery discussed with patient. Risks include but not limited to blood loss, blood clot, infection, neurovascular injury and failure procedure loss of life and loss of limb. Patient is aware like proceed with right open reduction internal fixation repair is indicated. Operative note Patient seen and examined preoperative holding area. Right wrist was marked. Patient brought to the operating placed supine on the operating table. Signing, anesthesia, antibiotics were administered. The right arm was prepped and draped in usual sterile fashion with a tourniquet around her upper arm. We marked out our incision for our distal radius open reduction internal fixation. The right arm was elevated exsanguinated tourniquet was raised her pressure 250 torr. Timeout was performed. We then used a 15 blade to cut through the skin was right over top of the FCR about a 4-5 cm incision we dissected down times the level of the FCR FCR was released and moved ulnarly. We dissected down to the FCR remove this as well ulnarly down to the pronator quadratus which was excised sharply from its radial border with a 15 blade we then used a arrieta elevator to sweep it off the distal radius. We noted that we had a split that extended from the distal radius radial styloid proximally as well as intra-articularly. We reduced this with 2 K wires. We know there was also some periosteum attached to the fracture site the provisionally before we use the K wires we did clean out the fracture site. With a combination of a [place] and a bone pick. We then irrigated the fracture site with copious muscle sterile saline. We again placed the K wires across the fracture site for good reduction was noted on AP and lateral planes good reduction of her fracture site. We then picked out our 2.4 variable angle LCP Synthes 2 column volar distal radius plate. We provisionally in place our radial styloid screws to secure the plate down to bone. We placed 222 2.4 cortical screws into the radial styloid we had good reduction again of the fracture site as well as the radial styloid piece back to to the shaft. We then placed 3 locking screws sequentially in the ulnar distal to proximal and then our last proximal radial screw hole was placed locking screw see chart for further details. After that we had good reduction of the fracture site and then placed our shaft screws we placed our first screw in the oblong hole was measured to be 12 mm drilled appropriately placed that one first which then secured the plate down to bone and re-create our volar tilt. We placed then 2 more 2.7 cortical screws proximally in standard technique. We took multiple images in multiple planes AP and lateral and 20degrees lateral angulation. We irrigated the incision with copious muscle sterile saline. We then sewed the pronator quadratus back to its periosteum again irrigated the incision with copious muscle sterile saline subcuticular layer was closed with 3-0 Vicryl and the skin was closed with 4-0 running Monocryl. Sterile dressings and a splint was applied. Patient tolerated procedure well there are no complications tourniquet was deflated for total working time of 55 minutes. Patient transferred to recovery room in stable condition. Next Postoperative note May use fingers and thumb as tolerated next Patient has Vicodin from the ER Follow-up in 2 weeks with x-rays Call with increased pain numbness tingling further issues arise This note was generated with [employer] dictation software. It may contain incorrect words, spelling, and punctuation that were not noted in checking the note before signing.
--- NOTE | 2018-01-18 08:10 | RAD_ITS ---
STUDY: X-RAY - RIGHT WRIST REASON FOR EXAM: Female, 62 years old. Intraoperative digital documentation images of ORIF of distal radius. TECHNIQUE: 4 intraoperative digital documentation view(s) of the wrist were obtained. COMPARISON: January 13, 2018 FINDINGS: 23.9 seconds of fluoroscopy time were utilized for a dose of 0.47 mGy. 4 intraoperative digital documentation images show a volar plate and screw fixation with anatomic alignment at the previously described fracture site. RAD/Wrist min 3 Views IMPRESSION: Intraoperative digital documentation images as described. Electronically Signed: Lazaro Martines MD at 12:04 EST , Service support ,
[2018-01-18] MEDS: Mupirocin Ointment 22gm Tube 1 APPLIC (08:22)
== END 2018-01-18 13:00 | disposition home or self-care (01) ==
LOC: SDC 05:26 → AC 05:27
PROVIDERS: Family Provider Preventive Medicine Occupational Medicine; PCP Preventive Medicine Occupational Medicine; Referring Provider Orthopaedic Surgery; Visit Provider Orthopaedic Surgery
PROC: (CPT 25608; principal; 2018-01-18 06:45)
DX: S52.571A Other intraarticular fracture of lower end of right radius, initial encounter for closed fracture (principal); W01.0XXA Fall on same level from slipping, tripping and stumbling without subsequent striking against object, initial encounter; Y93.89 Activity, other specified; Y92.89 Other specified places as the place of occurrence of the external cause; E07.9 Disorder of thyroid, unspecified; Z79.899 Other long term (current) drug therapy; I10 Essential (primary) hypertension; R00.1 Bradycardia, unspecified; R94.31 Abnormal electrocardiogram [ECG] [EKG]
CPT/HCPCS: 25608; 36415; 73110; 76000; 84443; 93005; C1713; J7120; J2405

== ENCOUNTER → 2018-01-31 10:35 | Outpatient (CLI) | payer OTHER, SELFPAY ==
[2018-01-22 12:37] VITALS: BMI 23.4
--- NOTE | 2018-01-31 10:37 | RAD_ITS ---
STUDY: X-RAY - RIGHT WRIST REASON FOR EXAM: Female, 62 years old. Surgery follow-up. TECHNIQUE: 3 view(s) of the wrist were obtained. COMPARISON: 01/18/2018, 01/13/2018.. FINDINGS: Plate and screw fixation distal radius. Mildly comminuted distal radius fracture in excellent anatomic alignment. No significant bridging callus formation is visible. Background osteopenia. Small avulsion fracture from the tip of the ulnar styloid. RAD/Wrist min 3 Views IMPRESSION: Surgical construct intact with excellent anatomic alignment, without visible bridging callus formation. Electronically Signed: Max Subramanian MD at 14:43 EST Tel , Service support ,
== END ==
PROVIDERS: Family Provider Preventive Medicine Occupational Medicine; PCP Preventive Medicine Occupational Medicine; Referring Provider Physician Assistant; Visit Provider Physician Assistant
DX: Z98.890 Other specified postprocedural states (principal)
CPT/HCPCS: 73110

== ENCOUNTER → 2018-02-28 09:03 | Outpatient (CLI) | payer OTHER, SELFPAY ==
[2018-01-31 10:42] VITALS: BMI 23.4
--- NOTE | 2018-02-28 09:05 | RAD_ITS ---
STUDY: X-RAY - RIGHT WRIST REASON FOR EXAM: Female, 62 years old. Follow-up wrist fracture. TECHNIQUE: 3 view(s) of the wrist were obtained. COMPARISON: January 31, 2018. FINDINGS: The semiopaque cast, seen on the prior study, is no longer present. There is generalized osteopenia thought to be secondary to disuse. Again seen is metallic plate and screws along the volar aspect of the distal radius. There is minimal visualization of the posterior fracture line on lateral images. There is evidence of interval callus formation. Again seen is stable abnormality of the ulnar styloid. There is degenerative arthrosis of the radiocarpal articulation. Normal distal radioulnar articulation. Normal carpal bones. Normal carpal articulations. Normal carpometacarpal articulation of the thumb. Normal second through fifth carpometacarpal articulations. Normal visualized metacarpal bones. The soft tissue structures are unremarkable. RAD/Wrist min 3 Views IMPRESSION: 1. Healing/healed fracture of the distal radius with internal fixation. 2. 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 Electronically Signed: Eddie Cesar DO at 17:09 EST Tel [phone], Service support ,
--- NOTE | 2018-02-28 09:55 | RAD_ITS ---
STUDY: X-RAY - RIGHT ELBOW REASON FOR EXAM: Female, 62 years old. Pain. TECHNIQUE: 3 view(s) of the elbow. COMPARISON: None. FINDINGS: Normal visualized humerus, radius and ulna. 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 There is no acute fracture, dislocation or destructive osseous pathology. The soft tissue structures are unremarkable. RAD/Elbow min 3 Views IMPRESSION: Minimal degenerative changes of the elbow without fracture or dislocation. Electronically Signed: Eddie Cesar DO at 23:40 EST Tel [phone], Service support ,
--- OUTSIDE RECORDS SUMMARY | 2018-05-04 22:26 | XMS RPT_ITS ---
:1955 Author Organization OHIP Support Name Relationship Address Phone R Unavailable Unavailable Unavailable JAROD ÁLVAREZ Unavailable [address] + [place] [address] R Unavailable Unavailable Unavailable JAROD ÁLVAREZ Unavailable [address] + [place] [address] R Unavailable Unavailable Unavailable JAROD ÁLVAREZ Unavailable [address] + [place] [address] R Unavailable Unavailable Unavailable JAROD ÁLVAREZ Unavailable [address] + [place] [address] R Unavailable Unavailable Unavailable JAROD ÁLVAREZ Unavailable [address] + [place] [address] R Unavailable Unavailable Unavailable JAROD ÁLVAREZ Unavailable [address] + [place] [address] R Unavailable Unavailable Unavailable JAROD ÁLVAREZ Unavailable [address] + [place] [address] R Unavailable Unavailable Unavailable JAROD ÁLVAREZ Unavailable [address] + [place] [address] R Unavailable Unavailable Unavailable JAROD ÁLVAREZ Unavailable [address] + [place] [address] R Unavailable Unavailable Unavailable JAROD ÁLVAREZ Unavailable [address] + [place] [address] R Unavailable Unavailable Unavailable JAROD ÁVLAREZ Unavailable [address] + [place] [address] R Unavailable Unavailable Unavailable JAROD ÁLVAREZ Unavailable [address] + [place] [address] JAROD ÁLVAREZ Unavailable Unavailable + JAROD ÁLVAREZ Unavailable Unavailable + JAROD ÁLVAREZ Unavailable Unavailable + JAROD ÁLVAREZ Unavailable Unavailable + Care Team Providers Name Role Phone PABLO CALABRESE MD Attending Unavailable CRISTAL, SUSAN Primary Care Unavailable PABLO CALABRESE MD Attending Unavailable CRISTAL, SUSAN Primary Care Unavailable Wayt, Rinku Attending Unavailable Cristal, Susan Referring Unavailable Jayy Anderson Attending Unavailable Chicorelli, Rae Referring Unavailable Chicorelli, Rae Attending Unavailable Wayt, Rinku Attending Unavailable Cristal, Susan Referring Unavailable Wayt, Rinku Attending Unavailable Wayt, Rinku Referring Unavailable Cristal, Susan Primary Care Unavailable Wayt, Rinku Attending Unavailable Wayt, Rinku Referring Unavailable Cristal, Susan Primary Care Unavailable Cristal, Susan Primary Care Unavailable Johnathan Acevedo Attending Unavailable Wayt, Rinku Attending Unavailable Cristal, Susan Referring Unavailable Chicorelli, Rae Attending Unavailable Chicorelli, Rae Referring Unavailable Cristal, Susan Primary Care Unavailable Edwin Gonzalez Consulting Unavailable Wayt, Rinku Attending Unavailable Cristal, Susan Referring Unavailable Wayt, Rinku Attending Unavailable Wayt, Irnku Referring Unavailable Cristal, Susan Primary Care Unavailable Cristal, Susan Attending Unavailable Cristal, Susan Referring Unavailable Cristal, Susan Primary Care Unavailable PROBLEMS PROBLEMS DATE TYPE CONDITION / CODE ATTENDING STATUS SOURCE 03/08/2018 Unknown Z00.00 - Encounter for Cristal Active [place] [facility] examination without Hospital abnormal findings / Repository Z00.00(ICD-10) 03/08/2018 Unknown E55.9 - Vitamin D Cristal Active [place] deficiency, [facility] unspecified / Hospital E55.9(ICD-10) Repository 03/07/2018 Unknown Z98.890 - Other Rinku Mckeon Active [place] specified [facility] / Z98.890(ICD-10) Repository 02/28/2018 Unknown M25.531 - Pain in Rinku Mckeon Active [place] right wrist / Community M25.531(ICD-10) Hospital Repository 01/28/2018 Unknown S52.571A - Other Chicdanny, Active [place] intraarticular Rae [facility] fracture of lower end Hospital of right radius, Repository initial encounter for closed fracture / S52.571A(ICD-10) 01/25/2018 Unknown R00.1 - Bradycardia, MonicaJayy woodward Active [place] unspecified / Community R00.1(ICD-10) Hospital Repository 01/25/2018 Unknown R94.31 - Abnormal Monica, [place] Active [place] electrocardiogram [facility] [ECG] [EKG] / Hospital R94.31(ICD-10) Repository 01/13/2018 Unknown S62.101A - Fracture of Acevedo, Active [place] unspecified carpal Johnathan [facility] bone, right wrist, Hospital initial encounter for Repository closed fracture / S62.101A(ICD-10) PROCEDURES PROCEDURES No Procedure Records FoundRESULTS RESULTS COMPREHENSIVE METABOLIC Collected: 03/08/2018 Status: F Source: [place] PROFIL 9:50 AM [facility] REPOSITORY TYPE CODE TESTS RESULT OUT OF RANGE REFERENCE UNITS LAB L501.0100 74-106 mg/dL Normal GLU 86 Result Comment: Please note revised GLUCOSE reference range effective 2017. LAB L501.1000 7-18 mg/dL Normal BUN 7 LAB L501.1100 0.55-1.02 mg/dL Normal CREAT,SERUM 0.63 Result Comment: The validity of the calculated GFR AND GFRAA in patients over 70 years has not been determined. Clinical correlation is essential. LAB L501.1110 >60 mL/min Normal EST GFR 100 Result Comment: Non- GFR Calc LAB L501.1115 >60 mL/min Normal EST GFR - AA 122 Result Comment: GFR Calc LAB L501.1300 10-20 RATIO Normal BUN/CRE 11.1 LAB L501.1500 6.4-8.2 g/dL T Normal PROT 7.5 LAB L501.1800 3.2-5.0 g/dL Normal ALB 3.7 LAB L501.1950 2.2-4.2 g/dL Normal GLOB 3.8 LAB L501.2000 0.9-2.4 RATIO Normal A/G 1.0 LAB L501.2200 8.5-10.1 mg/dL CA Normal 8.8 LAB L501.4100 15-37 U/L Normal AST 18 LAB L501.4305 45-117 U/L Normal ALK P 53 LAB L501.4405 13-56 U/L Normal ALT 22 LAB L501.4600 0.20-1.00 mg/dL T Normal BILI 0.60 LAB L501.5300 136-145 mmol/L NA Normal 137 LAB L501.5600 3.5-5.1 mmol/L K Normal 3.9 LAB L501.5900 98-107 mmol/L CL Normal 100 LAB L501.6100 21.0-32.0 mmol/L Normal CO2 29.0 LAB L501.6200 5-15 Normal GAP 8 Performed By: #### L500.4050, L500.4100 #### [facility] [address] [place], [place], [address] LIPID PROFILE Collected: 03/08/2018 Status: F Source: [place] 9:50 AM [facility] REPOSITORY TYPE CODE TESTS RESULT OUT OF RANGE REFERENCE UNITS LAB L501.4900 200 mg/dL High CHOL 232 Result Comment: <200 mg/dL Desirable 200-240 mg/dL Borderline >240 mg/dL High Risk LAB L501.5000 mg/dL Normal TRIG 90 Result Comment: The drugs N-Acetylcysteine and Metamizole may falsely depress this assay. Serum Triglycerides Reference Interval Normal <150 mg/dL Borderline high 150 - 199 mg/dL High 200 - 499 mg/dL Very High > or = 500 mg/dL LAB L501.6400 mg/dL Normal HDL 75 Result Comment: The drugs N-Acetylcysteine and Metamizole may falsely depress this assay. Reference Range HDL <40 mg/dL Low HDL Cholesterol HDL >or= 60 mg/dL High HDL Cholesterol LAB L501.6500 0-130 mg/dL High LDL 139 LAB L501.6600 5-40 mg/dL Normal VLDL 18 Performed By: #### L500.4050, L500.4100 #### [facility] [address] [place], [place], [address] VITAMIN D,25 HYDROXY Collected: 03/08/2018 Status: F Source: [place] 9:50 AM [facility] REPOSITORY TYPE CODE TESTS RESULT OUT OF RANGE REFERENCE UNITS LAB L506.1000 29.95-100.01 ng/mL Normal Vitamin D 46.8 25-OH Result Comment: Vitamin D 25(OH) Status Range Deficiency <20 ng/mL (50nmol/L) Insuffciency 20 - 30 ng/mL (50 - 75 nmol/L) Sufficiency 30 - 100 ng/mL (75 - 250 nmol/L) Toxicity >100 ng/mL (>250 nmol/L) Performed By: #### L506.1000 #### [facility] [address] [place], [address] ORTHOPEDIC VISIT Observed: 02/28/2018 Status: F Source: [place] REPORT 12:24 PM [facility] REPOSITORY [facility] [place] [address] OFFICE VISIT Date of Service: 02/28/18 MR#: [id number] Acct: [id number] Name: MECHELLE ÁLVAREZ Rep #: [id number] : 1955 Provider: ESTEFANIA Mckeon Age/Sex: 62/F [place] [facility] Status: Signed Intake Vital Signs02/28/18 Body Mass Index (BMI) 23.4 Intake Visit Reasons: RIGHT WRIST Is patient in pain?: No Allergies No Known Allergies Allergy (Verified 02/28/18 09:02) Medications Atenolol 50 mg PO DAILY 05/11/16 [History Confirmed 01/16/18] Levothyroxine [Synthroid] 75 mcg PO QHS 05/11/16 [History Confirmed 01/16/18] Lisinopril 10 mg PO QHS 05/11/16 [History Confirmed 01/16/18] Hydrocodone/Acetaminophen [[place]ather[place] 5-325 Tablet] 1 ea PO Q4H PRN PRN #20 tab 01/13/18 [Rx Confirmed 01/16/18] Cholecalciferol (Vitamin D3) [Vitamin D3] 2,000 unit PO DAILY 01/16/18 [History Confirmed 01/16/18] Estrogen,Con/M-Progest Acet [Prempro 0.3 mg-1.5 mg Tablet] 1 ea PO Q5D 01/16/18 [History Confirmed 01/16/18] Fluticasone 0.05% [Flonase Nasal [place]] 1 spray NASAL DAILY PRN 01/16/18 [History Confirmed 01/16/18] PFSH Social History Smoking Status: Never smoker HPI RIGHT WRIST: Details: MECHELLE ÁLVAREZ is a 62 year old F here today for s/p right wrist ORIF dos 01/18/18. Patient is doing well with no pain. She has been wearing her wrist brace at all times. She feels like she is getting carpal tunnel as she is having numbness into her fingers. Patients incision is fully healed. ROS Const Reports system reviewed and no additional complaints, except as docu Eyes Reports system reviewed and no additional complaints, except as docu ENT Reports system reviewed and no additional complaints, except as docu Card Reports system reviewed and no additional complaints, except as docu Resp Reports system reviewed and no additional complaints, except as docu GI Reports system reviewed and no additional complaints, except as docu Reports system reviewed and no additional complaints, except as docu Musc Reports stiffness, Reports numbness Skin/Breast Reports system reviewed and no additional complaints, except as docu Neuro Yes system reviewed and no additional complaints, except as docu, Yes numbness Psych Reports system reviewed and no additional complaints, except as docu Endo Reports system reviewed and no additional complaints, except as docu Ortho Exam Right Wrist/Hand Skin/Wound: No Swelling, No Ecchymosis, Yes healed Contralateral Normal: Yes Right Wrist: Yes ROM-Pronation 0-80; no ROM-Supination 0-90 (Around 40 degrees), TTP Fracture site or ROM-Flexion 0-80 (15-20 degrees) Sensation: Radial: I, Ulnar: I, Median: I WRIST: At this time patient appears to be healing very well 6 weeks post ORIF of the right distal radius. She has no erythema, inflammation, or other signs of infection at the incision site. She has minimal tenderness on palpation of the incision site. Today patient does have an evident reduced range of motion of the wrist especially with flexion and extension and supination. There is a lot of stiffness with each of these motions. She does have some discomfort on each of these terminal movements. There is no evidence of DRUJ instability. Left Wrist/Hand Skin/Wound: No Swelling, No Ecchymosis Right Elbow ROM: Yes Extension 0, Flexion 0-140 and Pronation 0-80; no Supination 0-90 Assessment AND Plan Problems 1. Status post wrist surgery Z98.890 2. Orthopedic aftercare Z47.89 Plan Obtained Xrays of patient's right wrist. Personally reviewed Xrays. There is evident orthopedic hardware in place of the distal radius. There has been no position change from previous x-rays. There is no dislocation, or lucency noted. See chart for further details. Patient is healing well 6 weeks post-ORIF of the right distal radius at the same time she has evident problems with decreased range of motion. This is most noted with flexion and extension as well as supination. She does states that she has seen steady improvement through physical therapy and feels like things are getting better but I explained she has quite a bit of stiffness in that I would like to see better range of motion at this point time. She has not had any elbow pains or problems at the same time would like to make sure we have no problems within the elbow joint itself with x-rays. There is no evident DRUJ instability but is definitely something that need to consider as well. At this time with her seeing some gradual improvement we are going to continue to advance her physical therapy to see if we continue with steady improvement. We deftly want to follow-up in 6 weeks to make sure that we are seeing range of motion improvement. Patient also has been complaining of some pains in the thenar eminence and some occasional numbness and tingling in the distal aspects of the thumb, index, and middle finger. She states this is not all the time and is mild at this point. We did discuss the risks for a carpal tunnel syndrome secondary to distal radius fracture. This very well could just be secondary to inflammation in the surrounding area postoperative. She is to ice and make sure she continues to wear the brace at night and let us know if symptoms worsen. Time she can begin to wean out of her cockup wrist splint to start working on some motion throughout the day. I would wear the splint if she is going to be out and about especially with the icy conditions. She is to notify sooner of any increasing pain, increasing swelling, or any other symptoms. This note was generated with AI [employer]ation software. It may contain incorrect words, spelling, and punctuation that were not noted in checking the note before signing. Orders Orders: Plan Detail Follow Up 6 Weeks Coding Level of Care Code Global Post Op Diagnoses Status post wrist surgery Z98.890 Orthopedic aftercare Z47.89 02/28/18 1224 <Electronically signed by Rinku MAC> Date Rinku Snowden Signature: Date (if applicable) CC: ELBOW MIN 3 VIEWS Observed: 02/28/2018 Status: F Source: [place] 9:55 AM [facility] REPOSITORY [facility] Imaging Services [address] [place] [address] Elbow min 3 Views MR#: [id number] Acct: [id number] Name: MECHELLE ÁLVAREZ Rep #: [id number] : 1955 F 62 From: Eddie Cesar DO PCP: Susan Bee DO Status: REG CLI Study: Elbow min 3 Views Date of Exam: 02/28/18 Exam# [id number] Ordering Dr: Rinku Mckeon STUDY: X-RAY - RIGHT ELBOW REASON FOR EXAM: Female, 62 years old. Pain. TECHNIQUE: 3 view(s) of the elbow. COMPARISON: None. FINDINGS: Normal visualized humerus, radius and ulna. 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 There is no acute fracture, dislocation or destructive osseous pathology. The soft tissue structures are unremarkable. RAD/Elbow min 3 Views IMPRESSION: Minimal degenerative changes of the elbow without fracture or dislocation. Electronically Signed: Eddie Cesar DO at 23:40 EST Tel [phone], Service support , CC: ESTEFANIA Mckeon; Susan Bee DO Dramatic Agent: Signed WRIST MIN 3 VIEWS Observed: 02/28/2018 Status: F Source: [place] 9:05 AM [facility] REPOSITORY [facility] Imaging [place] [place] [address] Wrist min 3 Views MR#: [id number] Acct: [id number] Name: MECHELLE ÁLVAREZ Rep #: [id number] : 1955 F 62 From: Eddie Cesar DO PCP: Susan Bee DO Status: REG CLI Study: Wrist min 3 Views Date of Exam: 02/28/18 Exam# [id number] Ordering Dr: Rinku Mckeon STUDY: X-RAY - RIGHT WRIST REASON FOR EXAM: Female, 62 years old. Follow-up wrist fracture. TECHNIQUE: 3 view(s) of the wrist were obtained. COMPARISON: January 31, 2018. FINDINGS: The semiopaque cast, seen on the prior study, is no longer present. There is generalized osteopenia thought to be secondary to disuse. Again seen is metallic plate and screws along the volar aspect of the distal radius. There is minimal visualization of the posterior fracture line on lateral images. There is evidence of interval callus formation. Again seen is stable abnormality of the ulnar styloid. There is degenerative arthrosis of the radiocarpal articulation. Normal distal radioulnar articulation. Normal carpal bones. Normal carpal articulations. Normal carpometacarpal articulation of the thumb. Normal second through fifth carpometacarpal articulations. Normal visualized metacarpal bones. The soft tissue structures are unremarkable. RAD/Wrist min 3 Views IMPRESSION: 1. Healing/healed fracture of the distal radius with internal fixation. 2. 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 Electronically Signed: Eddie Cesar DO at 17:09 EST Tel [phone], Service support , CC: ESTEFANIA Mckeon; Susan Bee DO Dramatic Agent: Signed RE-EVALUTION OT Observed: 02/26/2018 Status: F Source: [place] 10:34 AM [facility] REPOSITORY [facility] Occupational Therapy [facility] [address] [place] [address] / REEVALUATION / MEDICARE RECERTIFICATION OCCUPATIONAL THERAPY MR#: [id number] Acct: [id number] Name: MECHELLE ÁLVAREZ Rep #: [id number] : 1955 62 From: Jojo Bourgeois Referring Dr.: ESTEFANIA Mckeon Status: REG RCR Insurance: [employer] Eval Date: [facility] PACKAGE PLAN ESTEFANIA Boone, It has been my pleasure to treat MECHELLE ÁLVAREZ over the last 8 visits for ORIF R wrist. Please see the progress note below for an update on the occupational therapy plan of care! Subjective: Arrived and noted that wrist is stiff. Feels like she has made progress, about 30-35% but still worried about stiffness. She explained she leaved for [place] in 2.5 weeks and would like this to be doing pretty well by then. Objective/Function: Completed reassessment on this date of 02/26/18 and results are as follows: ROM: Wrist. - Flexion: R 0-27, L WFL. - Extension R 0-11, L WFL. - Supination R 0-25, L WFL. MCP 2-5th digits. R 27-68, 15-71, 15-79, 9-84;L WFL. PIP 2nd-5th digits: R 8-84, 22-87, 16-93, 0-72, L WFL. DIP 2nd - 5th Digits: R 0-49, 19-60, 0-57, 0-45, L WFL. Sensation: R. 2nd 2.83, 3rd 2.83, 4th 2.83, 5th 2.83, thumb 2.83. L. 2nd 2.83, 3rd 2.83, 4th 2.83, 5th 2.83, thumb 3.22. Strength measurements: - Senior International Tax Manager R 10, L 78. - Lateral pinch R 10, L 17. - Tripod Pinch R 8, L 16. - Pinch R 7, L 14. Mechelle has progressed from initial evaluation. Further skill OT required for continue progression of functional use of R dominant hand. Plan Frequency: 2x /Week Duration: 4 Weeks Visits in this POC: 8-12 Plan: continue POC for 2x weekly appointments for next 4 weeks and will continue when back from vacation. She is to continue HEP and will started BTE routine within up coming sessions as she is progressing towwards increased ROM. Goals - Goals Goal:: Mechelle to increased R excel specialist to 60-70% of L nonaffected excel specialist to promote increased ROM and strength to promote increased strength and stability needed to return to PLOF by d/c. Goal:: Mechelle to increased R wrist ROM to 60-70% of L wrist ROM to promote increased ROM and mobility needed to return to PLOF by d/c. Goal:: Mcehelle to have no more than 1/10 pain with repetivitive movements 4/5 trials 80% of the time by d/c. Goal:: Mechelle R hand to return to normal with use of semmes roberto touch ttest to promote returning to PLOF on R hand by d/c. Goal:: Mechelle to complete regular scar massge to break up scar tissue 4/5 trials 80% of the time to promote increased ROM and decreased risk of sensitivity by d/c. Goal:: Mechelle to be (I) to complete good wrist mechanics and alignment to promote integrity and decrease risk of further injury of R wrist by d/c. Goal:: Mechelle to be (I) to return to all ADl/IADLs 100% of the time to promote increased ROM and strength of R hand to return to PLOF by d/c. Anticipated Interventions Anticipated Interventions: A/AAROM/PROM, Strengthening, Edema Control, Scar Care, Triggerpoint Release, Desensitization, Sensory Retraining, Modalities, Orthoses, Joint Protection/Energy Conservation, Ergonomic Education, Fine Motor Coord/Davy, Visual/Perceptual Skills, Cognitive Skills, ADL Training, Caregiver Training, Home Program Please do not hesitate to contact me at [phone] by phone or if you have questions or concerns regarding this new plan of care! Sincerely, Jojo Bourgeois <Electronically signed by Jojo Bourgeois > 02/26/18 1034 CC: ESTEFANIA Mckeon; Susan Bee DO K[facility] Signed For Medicare only, by signing this I certify the plan of care. Physicians Signature Date OT GENERAL EVALUATION Observed: 02/01/2018 Status: F Source: [place] 2:08 PM [facility] REPOSITORY [facility] Occupational Therapy [facility] [address] [place] [address] Fax REHABILITATION SERVICES INITIAL EVALUATION MR#: [id number] Acct: [id number] Name: MECHELLE ÁLVAREZ Rep #: [id number] : 1955 62 From: Jojo Bourgeois Referring Dr.: ESTEFANIA Mckeon Status: REG RCR Insurance: [employer] [facility] Date: SELF PAY INSURANCE Patient's Visit Information MECHELLE ÁLVAREZ is a 62 year old F, referred to Occupational Therapy by ESTEFANIA Boone, with a diagnosis of ORIF R wrist. Date of Evaluation: 02/01/18 Occupational Therapist: Jojo Bourgeois - Subjective Subjective: Arrived as referral from [facility]. She noted that had ORIF surgery two weeks ago with initial fracture occurring about three weeks ago. 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 - Pain Right Wrist 0 Pain Intensity Range: 0, 5 - ROM Wrist: Wrist flexion R 0-36, L ; extension R 0-0 neutral position, L 0-64 MP: R 0-46, L WFL IP: R thumb IP passive flexion 0-40, L WFL Radial Abduction: R 0-24, L WFL MP: R 2nd 0-80, 3rd 0-76, 4th 0-72, 5th 0-68; L WFL PIP: R 2nd 0-58, 3rd 0-68, 4th 0-80, 5th 0-69 DIP: R 2nd 0-21, 3rd 0-24, 4th 0-20, 5th 0-30, L WFL ROM Comments: Radial dev R 0-0, L 0-21. Ulnar Dev R 0-11, L 0-29. Pt. noted and increased stiffness noted t/o entire wrist and hand. She is unable to make full composite fist at this time and notes increased difficulty with active flexion of IP of R thumb. - Strength Senior International Tax Manager: R 8, L 59 lbs Lateral Pinch: R 5, L 18 lbs Tripod Pinch: R 4, L 15 lbs Tip-to-Tip Pinch: R 4, L 1 lbs - Sensation Thumb: R 3.22, L 2.83 Index: R 3.22, L 2.83 Middle: R 3.22, L 2.83 Ring: R 3.61, L 2.83 Little: R 3.61, L 2.83 Sensation Comments: Increased sensitivity over the palm. - Nine Hole Peg Right: 48.92 s Left: 20.71 s Comments: R hand compensations from rolling out to side to promote - Quick DASH-Disab of Arm,Shoulder AND Hand Quick DASH Score: 75.0000 - Hand/Wrist Evaluation Total Score of Pain AND Functional Sections: 45 - Goals Goal:: Mechelle to increased R excel specialist to 60-70% of L nonaffected excel specialist to promote increased ROM and strength to promote increased strength and stability needed to return to PLOF by d/c. Goal:: Mechelle to increased R wrist ROM to 60-70% of L wrist ROM to promote increased ROM and mobility needed to return to PLOF by d/c. Goal:: Mechelle to have no more than 1/10 pain with repetivitive movements 4/5 trials 80% of the time by d/c. Goal:: Mechelle R hand to return to normal with use of semmes roberto touch ttest to promote returning to PLOF on R hand by d/c. Goal:: Mechelle to complete regular scar massge to break up scar tissue 4/5 trials 80% of the time to promote increased ROM and decreased risk of sensitivity by d/c. Goal:: Mechelle to be (I) to complete good wrist mechanics and alignment to promote integrity and decrease risk of further injury of R wrist by d/c. Goal:: Mechelle to be (I) to return to all ADl/IADLs 100% of the time to promote increased ROM and strength of R hand to return to PLOF by d/c. - Rehabilitation General Assessment: Mechelle arrived for OT evaluation on this date 02/01/18. She is s/p two weeks post- op of L wrist ORIF. She exhibits limited ROM, strength, and some decreased sensation. Mechelle would benefit from 2x weekly appointment for the next 4-6 weeks. Rehabilitation Potential: Good - Anticipated Interventions Anticipated Interventions: A/AAROM/PROM, Strengthening, Edema Control, Scar Care, Triggerpoint Release, Desensitization, Sensory Retraining, Modalities, Orthoses, Joint Protection/Energy Conservation, Ergonomic Education, Fine Motor Coord/Davy, Visual/Perceptual Skills, Cognitive Skills, ADL Training, Caregiver Training, Home Program - Visit Plan Frequency: 2x /Week Duration: 4-6 Weeks General Plan: OT to include progressive ROM, PRE with strengthening program, modalities as needed for pain management and soft tissue mobility of TENs, moist heat, and general wrist mechanics to promote returning to PLOF. TEXT: Thank you for the opportunity to evaluate your patient. For Medicare and Medicare HMO plans, please review the plan of care and approve it. It will need to be FAXED BACK to us at [phone] for Medicare purposes. Please let me know if there are questions or concerns regarding this plan of care. Physician Signature: Date: <Electronically signed by Jojo Bourgeois > 02/01/18 1408 CC: ESTEFANIA Mckeon; Susan Bee DO JONATHON Signed For Medicare only, by signing this I certify the plan of care. Physicians Signature Date ORTHOPEDIC VISIT Observed: 01/31/2018 Status: F Source: [place] REPORT 11:16 AM [facility] REPOSITORY [facility] AND Sports Medicine [address] [place] [address] OFFICE VISIT Date of Service: 01/31/18 MR#: [id number] Acct: [id number] Name: MECHELLE ÁLVAREZ Rep #: [id number] : 1955 Provider: ESTEFANIA Mckeon Age/Sex: 62/F [place] [facility] Status: Signed Intake Vital Signs01/31/18 Body Mass Index (BMI) 23.4 Intake Visit Reasons: RIGHT WRIST Is patient in pain?: No Allergies No Known Allergies Allergy (Verified 01/31/18 10:38) Medications Atenolol 50 mg PO DAILY 05/11/16 [History Confirmed 01/16/18] Levothyroxine [Synthroid] 75 mcg PO QHS 05/11/16 [History Confirmed 01/16/18] Lisinopril 10 mg PO QHS 05/11/16 [History Confirmed 01/16/18] Hydrocodone/Acetaminophen [Weatherly 5-325 Tablet] 1 ea PO Q4H PRN PRN #20 tab 01/13/18 [Rx Confirmed 01/16/18] Cholecalciferol (Vitamin D3) [Vitamin D3] 2,000 unit PO DAILY 01/16/18 [History Confirmed 01/16/18] Estrogen,Con/M-Progest Acet [Prempro 0.3 mg-1.5 mg Tablet] 1 ea PO Q5D 01/16/18 [History Confirmed 01/16/18] Fluticasone 0.05% [Flonase Nasal [place]] 1 spray NASAL DAILY PRN 01/16/18 [History Confirmed 01/16/18] PFSH Social History Smoking Status: Never smoker HPI RIGHT WRIST: Details: MECHELLE ÁLVAREZ is a 62 year old F here today for s/p right wrist ORIF dos 01/18/18. Patient states that she is doing well and not having any pain. She is able to move her fingers with no pain. She has been wearing her splint at all times. Denies numbness, tingling or other associated symptoms. ROS Const Reports system reviewed and no additional complaints, except as docu Eyes Reports system reviewed and no additional complaints, except as docu ENT Reports system reviewed and no additional complaints, except as docu Card Reports system reviewed and no additional complaints, except as docu Resp Reports system reviewed and no additional complaints, except as docu GI Reports system reviewed and no additional complaints, except as docu Reports system reviewed and no additional complaints, except as docu Skin/Breast Reports system reviewed and no additional complaints, except as docu Neuro Yes system reviewed and no additional complaints, except as docu Psych Reports system reviewed and no additional complaints, except as docu Endo Reports system reviewed and no additional complaints, except as docu Ortho Exam Right Wrist/Hand Skin/Wound: Yes Swelling, No Ecchymosis, Yes healing Right Wrist: Yes TTP Fracture site; no ROM-Extension 0-60, ROM-Flexion 0-80, ROM-Pronation 0-80 or ROM-Supination 0-90 Sensation: Median: D WRIST: At this time patient has some minor generalized swelling still noted on the volar surface of the wrist. There is no erythema, inflammation, or discharge to indicate infection. Patient has evident decreased range of motion postoperatively as expected. She still some minor tenderness at the distal radius over the fracture as well as over the ulnar styloid area. She also has some stiffness with flexion of the thumb. There is some minor decrease in light sensation in distribution of the median nerve. This is likely secondary to the actual injury and inflammation/swelling of the volar wrist which is causing some irritation of the median nerve. Left Wrist/Hand Skin/Wound: Yes Swelling, No Ecchymosis Assessment AND Plan Problems 1. Status post wrist surgery Z98.890 2. Orthopedic aftercare Z47.89 Plan Obtained Xrays of patient's right wrist. Personally reviewed Xrays. There is evident hardware noted on the distal radius at the fracture site. There is good anatomic alignment without any disruption of the joint space. There is no Dislocation, or lucency noted. See chart for further details. At this time patient is recovering well 2 weeks postop from right wrist ORIF. She has no signs of infection at the incision site. She has stiffness of the wrist which is to be expected at this point postoperative. She does have some evidence of minor carpal tunnel like symptoms that will need to continue to monitor. At this time we are going to go ahead and start physical therapy start working on passive range of motion as she deftly has stiffness in the wrist. She is to continue to ice and take anti-inflammatories as needed for pain and inflammation. Patient was placed in a cockup wrist splint and is to wear the splint anytime she is out and about and should probably wear this at home for the first 1-2 weeks until the acute pain subsides. Notify of any injuries, increasing pain, redness, and/or swelling. This note was generated with AI Patentsation software. It may contain incorrect words, spelling, and punctuation that were not noted in checking the note before signing. Orders Orders: Plan Detail Follow Up 1 Month Coding Level of Care Code Global Post Op Diagnoses Status post wrist surgery Z98.890 Orthopedic aftercare Z47.89 01/31/18 1116 <Electronically signed by Rinku MAC> Date Rinku MAC Cosigner Signature: Date (if applicable) CC: WRIST MIN 3 VIEWS Observed: 01/31/2018 Status: F Source: [place] 10:37 AM [facility] REPOSITORY [facility] Imaging Services [address] [place] [address] Wrist min 3 Views MR#: [id number] Acct: [id number] Name: MECHELLE ÁLVAREZ Rep #: [id number] : 1955 F 62 From: Max Subramanian MD PCP: Susan Bee DO Status: REG CLI Study: Wrist min 3 Views Date of Exam: 01/31/18 Exam# [id number] Ordering Dr: Rinku Mckeon STUDY: X-RAY - RIGHT WRIST REASON FOR EXAM: Female, 62 years old. Surgery follow-up. TECHNIQUE: 3 view(s) of the wrist were obtained. COMPARISON: 01/18/2018, 01/13/2018.. FINDINGS: Plate and screw fixation distal radius. Mildly comminuted distal radius fracture in excellent anatomic alignment. No significant bridging callus formation is visible. Background osteopenia. Small avulsion fracture from the tip of the ulnar styloid. RAD/Wrist min 3 Views IMPRESSION: Surgical construct intact with excellent anatomic alignment, without visible bridging callus formation. Electronically Signed: Max Subramanian MD at 14:43 EST Tel , Service support , CC: ESTEFANIA Mckeon; Susan Bee DO Dramatic Agent: Signed ORTHOPEDIC VISIT Observed: 01/22/2018 Status: F Source: [place] REPORT 12:37 PM [facility] REPOSITORY [facility]opa[facility] Medicine [address] [place] [address] OFFICE VISIT Date of Service: 01/22/18 MR#: [id number] Acct: [id number] Name: MECHELLE ÁLVAREZ Rep #: [id number] : 1955 Provider: ESTEFANIA Mckeon Age/Sex: 62/F [place] [facility] Status: Signed Intake Intake Visit Reasons: RIGHT WRIST Allergies No Known Allergies Allergy (Verified 01/16/18 08:46) Medications Atenolol 50 mg PO DAILY 05/11/16 [History Confirmed 01/16/18] Levothyroxine [Synthroid] 75 mcg PO QHS 05/11/16 [History Confirmed 01/16/18] Lisinopril 10 mg PO QHS 05/11/16 [History Confirmed 01/16/18] Hydrocodone/Acetaminophen [Weatherly 5-325 Tablet] 1 ea PO Q4H PRN PRN #20 tab 01/13/18 [Rx Confirmed 01/16/18] Cholecalciferol (Vitamin D3) [Vitamin D3] 2,000 unit PO DAILY 01/16/18 [History Confirmed 01/16/18] Estrogen,Con/M-Progest Acet [Prempro 0.3 mg-1.5 mg Tablet] 1 ea PO Q5D 01/16/18 [History Confirmed 01/16/18] Fluticasone 0.05% [Flonase Nasal [place]] 1 spray NASAL DAILY PRN 01/16/18 [History Confirmed 01/16/18] [facility] Social History Smoking Status: Never smoker HPI RIGHT WRIST: Details: MECHELLE ÁLVAREZ is a 62 year old F here today for followup following ORIF right wrist on January 18, 2018. Patient is splinted. Patient states she takes occasional Weatherly for pain. She is elevating her wrist. [...] <Electronically signed by Rinku MAC> Date Rinku Snowden Signature: Date (if applicable) CC: OPERATIVE REPORT Observed: 01/22/2018 Status: F Source: [place] 12:13 PM [facility] REPOSITORY [facility] Medical Records Department [address] [place] [address] Operative Report 01/18/18 0704 MR#: [id number] Acct: [id number] Name: MECHELLE ÁLVAREZ Rep #: [id number] : 1955 62 From: Rae Buckner DO PCP: Susan Bee DO Status: [facility] Y Location: [facility] Report of Operation Date of Procedure: 01/18/18 [...] fracture site. With a combination of a Sidell and a bone pick. We then irrigated [...] issues arise This note was generated with SolarPrint dictation software. It may contain incorrect words, spelling, and punctuation that were not noted in checking the note before signing. 01/22/18 1213 <Electronically signed by Rae Buckner DO> Date Rae Buckner DO CC: Rae Buckner DO; Edwin Gonzalez MD; Susan Bee DO Signed 12 LEAD ELECTROCARDIOGRAM Observed: 01/18/2018 Status: F Source: [place] 2:41 PM [facility] REPOSITORY [facility] Cardiovascular Services [address] [place] [address] 12 Lead EKG 01/17/18 1014 MR#: [id number] Acct: [id number] Name: MECHELLE ÁLVAREZ Rep #: [id number] : 1955 62 From: Jayy Anderson MD Attending Dr: Rae Buckner DO Status: [facility] Ordering Dr: Rae Buckner DO Date: 01/17/18 Location: [facility] Sex: F C Admitted: Test Reason : PREOP Blood Pressure : / mmHG Vent. Rate : 052 BPM Atrial Rate : 052 BPM P-R Int : 144 ms QRS Dur : 076 ms QT Int : 418 ms P-R-T Axes : 054 002 -05 degrees QTc Int : 388 ms Sinus bradycardia Nonspecific ST abnormality Abnormal ECG Confirmed by JAYY ANDERSON MD ([id number]), editorial director BENTLEY JONAS ([id number]) on 01/18/2018 2:41:29 PM Referred By: Rae Buckner Confirmed By:JAYY ANDERSON MD 01/18/18 1441 Date Jayy Anderson MD CC: Rae Buckner DO; Susan Bee DO Signed DISCHARGE INSTRUCTION Observed: 01/18/2018 Status: F Source: [place] 7:04 AM [facility] REPOSITORY [facility] Medical Records Department [address] [place] [address] Instructions for Home/Discharge Instructions 01/18/18 0703 MR#: [id number] Acct: [id number] Name: MECHELLE ÁLVAREZ Rep #: [id number] : 1955 62 From: Rae Buckner DO PCP: Susan Bee DO Status: REG SDC Discharge Diet: No Restrictions - leave dressing [...] Lisinopril 10 mg PO QHS 05/11/16 Hydrocodone/Acetaminophen [Weatherly 5-325 Tablet] 1 each PO Q4H PRN PRN #20 tablet 01/13/18 Cholecalciferol (Vitamin D3) [Vitamin D3] 2,000 unit PO DAILY 01/16/18 Estrogen,Con/M-Progest Acet [Prempro 0.3 mg-1.5 mg Tablet] 1 each PO Q5D 01/16/18 Fluticasone 0.05% [Flonase Nasal [place]] 1 spray NASAL DAILY PRN 01/16/18 Orders to be completed after discharge: 12 Lead EKG [[facility]] Time Frame: 01/17/18, Location: None Selected Thyroid Stim Hormone (TSH) Time Frame: 01/17/18, Location: [facility] Primary Care Physician: Susan Bee DO [Primary Care Provider] - Test Results: Test results from this visit will be discussed in further detail at your follow-up appointment, if applicable. Please Follow Up With: Rae Buckner DO - [phone] 01/18/18 0704 <Electronically signed by Rae Buckner DO> Date Rae Buckner DO CC: Edwin Gonzalez MD; Susan Bee DO WRIST MIN 3 VIEWS Observed: 01/18/2018 Status: F Source: [place] 5:05 AM [facility] REPOSITORY [facility] Imaging Services [address] [address] Wrist min 3 Views MR#: [id number] Acct: [id number] Name: MECHELLE ÁLVAREZ Erica Rep #: [id number] : 1955 F 62 From: Lazaro Martines MD PCP: Susan Bee DO Status: REG [facility] Study: Wrist min 3 Views Date of Exam: 01/18/18 Exam# [id number] Ordering Dr: Rae Buckner DO STUDY: X-RAY [...] CC: Rae Buckner DO; Susan Bee DO Dramatic Agent: Signed ORTHOPEDIC VISIT Observed: 01/17/2018 Status: F Source: [place] REPORT 11:10 AM [facility] Orthopaedics AND Sports Medicine [address] [place] [address] OFFICE VISIT Date of Service: 01/15/18 MR#: [id number] Acct: [id number] Name: MECHELLE ÁLVAREZ Rep #: [id number] : 1955 Provider: ESTEFANIA Mckeon Age/Sex: 62/F [place] [facility] Status: Signed Intake Vital Signs01/15/18 Body Mass [...] PO QHS 05/11/16 [History Confirmed 01/16/18] Hydrocodone/Acetaminophen [Weatherly 5-325 Tablet] 1 ea PO Q4H PRN PRN #20 tab 01/13/18 [Rx Confirmed 01/16/18] Cholecalciferol (Vitamin D3) [Vitamin D3] 2,000 unit PO DAILY 01/16/18 [History Confirmed 01/16/18] Estrogen,Con/M-Progest Acet [Prempro 0.3 mg-1.5 mg Tablet] 1 ea PO Q5D 01/16/18 [History Confirmed 01/16/18] Fluticasone 0.05% [Flonase Nasal [place]] 1 spray NASAL DAILY PRN 01/16/18 [History [...] end of right radius, initial encounter S52.571A Plan Today in the office we did [...] the meantime. This note was generated with AI Patentsation software. It may contain incorrect words, spelling, [...] Status: F Source: [place] (TSH) 9:57 AM [facility] REPOSITORY TYPE CODE TESTS RESULT OUT OF RANGE REFERENCE UNITS LAB L501.9520 0.358-3.74 uIU/mL Normal TSH 3.23 Performed By: #### L501.9520 #### [facility] [address] [facility] [place], [address] DISCHARGE INSTRUCTION Observed: 01/13/2018 Status: F Source: [place] 4:37 PM [facility] REPOSITORY [facility] Medical Records Department [address] [place] [address] Discharge Instruction 01/13/18 1627 MR#: [id number] Acct: [id number] Name: MECHELLE ÁLVAREZ Rep #: [id number] : 1955 62 From: Johnathan Acevedo MD PCP: Susan Bee DO Status: REG ER ED Disposition - Plan for ED Patient: Disposition: Home or Assisted Living Chief Complaint: Upper Extremity Injury Instructions: ED Fx Wrist General Prescriptions: Hydrocodone/Acetaminophen [Weatherly 5-325 Tablet] 1 each PO Q4H PRN PRN #20 tablet PRN Reason: Pain Referrals: Rae Buckner DO [STAFF PHYSICIAN] - As soon as possible Additional Instructions: Ice and elevate your right wrist. Keep the splint dry and clean. Motrin and Weatherly as needed for pain. Call and follow-up with Dr. Rae Buckner of orthopedics as soon as possible or any orthopedic surgeon of your choice. What to do if you have Problems For any increased pain, shortness of breath, bleeding, nausea or vomiting, chest pain, or any unexpected problems, contact your Primary Care Provider. Call [facility] ([phone]) or report to the closest Emergency Room. Call 911 if necessary. 01/13/18 5647 <Electronically signed by Johnathan Acevedo MD> Date Johnathan Acevedo MD Cosigner Signature (If Indicated): Date CC: Susan Bee DO EMERGENCY DEPARTMENT Observed: 01/13/2018 Status: F Source: [place] SUMMARY 4:37 PM [facility] REPOSITORY [facility] Medical Records Department [address] [place] [address] Emergency Department Summary 01/13/18 1402 MR#: [id number] Acct: [id number] Name: MECHELLE ÁLVAREZ Rep #: [id number] : 1955 62 From: Johnathan Acevedo MD PCP: Susan Bee DO Status: REG ER - ER Visit Summary Date of Service: 01/13/18 Chief Complaint: Fall and right wrist injury History of Present Illness: The patient is a 62 F krqil-fjtb-powqkrqu. History of hypertension and hypothyroidism. Patient had [...] Left upper extremity is nontender with normal excel specialist strength. Her right shoulder, upper arm, elbow [...] Department Course and Treatment: Patient treated with Weatherly for pain. Discussed options of splinting the fracture at its current position versus attempted reduction. Patient preferred reduction. She was consciously sedated with 60 mg IV of propofol. Discharge myself in a executive director of nursing were present in the room. He was able to manually reduce the fracture and placed the patient in a short arm AP Ortho-Glass splint. She will be placed in a sling. Patient woke up from the propofol without any difficulty. Her vital signs remained stable the entire time. Treatment Plan: Ice and elevate. Keep splint dry and clean. Weatherly and Motrin for pain and inflammation. Call and follow-up with Dr. Rae Buckner's office tomorrow and be seen this week. Disposition: Discharge Impression: Acute fall Acute right wrist distal radius fracture Conscious sedation by ER using propofol Fracture reduction by ER Short arm AP splint by ER This note was generated with SolarPrint dictation software. It may contain incorrect words, [...] the splint dry and clean. Motrin and Weatherly as needed for pain. Call and follow-up with Dr. Rae Buckner of orthopedics as soon as possible or any orthopedic surgeon of your choice. What to do if you have Problems For any increased pain, shortness of breath, bleeding, nausea or vomiting, chest pain, or any unexpected problems, contact your Primary Care Provider. Call [facility] ([phone]) or report to the closest Emergency Room. Call 911 if necessary. 01/13/18 1397 <Electronically signed by Johnathan Acevedo MD> Date Johnathan Acevedo MD Cosigner Signature (If Indicated): Date CC: Susan Bee DO DISCHARGE INSTRUCTION Observed: 01/13/2018 Status: F Source: [place] 4:37 PM [facility] REPOSITORY [facility] Medical Records Department [address] [place] [address] Discharge Instruction 01/13/18 1404 MR#: [id number] Acct: [id number] Name: MECHELLE ÁLVAREZ Rep #: [id number] : 1955 62 From: Johnathan Acevedo MD PCP: Susan Bee DO Status: REG ER ED Disposition - Plan for ED Patient: Disposition: Home or Assisted Living Chief Complaint: Upper Extremity Injury Instructions: ED Fx Wrist General Prescriptions: Hydrocodone/Acetaminophen [Weatherly 5-325 Tablet] 1 ea PO Q4H PRN PRN 7 Days #20 tab PRN Reason: Pain Referrals: Rae Buckner DO [STAFF PHYSICIAN] - As soon as possible Additional Instructions: Ice and elevate your right wrist. Keep the splint dry and clean. Motrin and Weatherly as needed for pain. Call and follow-up with Dr. Rae Buckner of orthopedics as soon as possible or any orthopedic surgeon of your choice. What to do if you have Problems For any increased pain, shortness of breath, bleeding, nausea or vomiting, chest pain, or any unexpected problems, contact your Primary Care Provider. Call [facility] ([phone]) or report to the closest Emergency Room. Call 911 if necessary. 01/13/18 3707 <Electronically signed by Johnathan Acevedo MD> Date Johnathan Acevedo MD Cosigner Signature (If Indicated): Date CC: Susan Bee DO WRIST 2 VIEWS Observed: 01/13/2018 Status: F Source: [place] 4:06 PM [facility] REPOSITORY [facility] Imaging Services [address] [place], [place] [address] [address] Wrist 2 Views MR#: [id number] Acct: [id number] Name: MECHELLE ÁLVAREZ Erica Rep #: [id number] : 1955 F 62 From: Audra Ortiz MD PCP: Susan Bee DO Status: DEP ER Study: Wrist 2 Views Date of Exam: 01/13/18 Exam# [id number] Ordering Dr: Johnathan Acevedo MD STUDY: X-RAY [...] Ortiz MD at 18:27 EST Tel Direct: [phone], Service support , CC: Johnathan Acevedo MD; Susan Bee DO Dramatic Agent: Signed WRIST MIN 3 VIEWS Observed: 01/13/2018 Status: F Source: [place] 1:54 PM [facility] REPOSITORY [facility] Imaging Services [address] [place] [address] Wrist min 3 Views MR#: [id number] Acct: [id number] Name: MECHELLE ÁLVAREZ Rep #: [id number] : 1955 F 62 From: Khadijah Loera MD PCP: Susan Bee DO Status: PRE ER Study: Wrist min 3 Views Date of Exam: 01/13/18 Exam# [id number] Ordering Dr: Johnathan Acevedo MD STUDY: X-RAY [...] CC: Johnathan Acevedo MD; Susan Bee DO Dramatic Agent: Signed [place] MAMMOGRAM SCREENING Observed: 08/08/2017 Status: F Source: [facility] BILATERAL W/DIMAS 11:15 AM [facility]OUNDATION REPOSITORY ORIGINAL FROM: [place] [address] PROCEDURE FOR: MECHELLE ÁLVAREZ [address] [place] [address] Home: PID#: [id number] Exam#: [id number] : 1955 Age: 61 TO: PABLO CALABRESE MD [address] [place] [address] [address] [place] [address] #[id number] DIGITAL SCREENING MAMMOGRAM 3D/2D WITH CAD WITH MEDIOLATERAL OBLIQUE CRANIOCAUDAL: 08/08/2017 Comparison is made to exams dated: 08/05/2015 mammogram - [facility] and 08/07/2016 mammogram - [facility]. There are scattered fibroglandular elements in [...] 1 year screening mammogram is recommended. ARISTIDES alonso/vivien:08/08/2017 18:43:21 copy to: SUSAN BEE DO, ph: [phone], fax: [phone] Saw Grinder: DYLON WHITE RT(R), [facility] letter sent: Normal BI-RADS 1&2 Mammogram BI-RADS: 2 Benign VIDH Collected: 06/04/2017 Status: F Source: [facility] 10:18 AM [facility] REPOSITORY TYPE CODE TESTS RESULT OUT OF RANGE REFERENCE UNITS LAB VIDH(LOINC) ng/mL Vit. D 61 25-Hydroxy Result Comment: Interpretive Values Based on Total 25(OH)D: Severe Deficiency <20 ng/mL Mild to Moderate Deficiency 20-30 ng/mL Optimum Levels 30-100 ng/mL Toxicity Possible >100 ng/mL Performed By: #### VIDH #### [place] [address] ALLERGIES ALLERGIES DATE TYPE / CODE NAME / CODE REACTION SEVERITY SOURCE 02/28/2018 Drug No Known Unknown [facility] Allergy/4160 Allergies/F00 [facility] 16254(SNOMED 6933985(RXNOR Repository CT) M) ENCOUNTERS ENCOUNTERS ADMIT/DISCHARGE ACCOUNT NUMBER ADMITTING ENCOUNTER LOCATION SOURCE CLASS 03/08/2018 [id number] Ambulatory [facility] ding:LAB Repository 03/07/2018 [id number] Ambulatory [facility] ding:OT Repository 02/28/2018 [id number] Ambulatory [facility] ding:HPRAD Repository 02/28/2018/02/28/19 [id number] Ambulatory BMSBuilding: [place] [facility] Repository 01/31/2018 [id number] Ambulatory [facility] ding:HPRAD Repository 01/31/2018/02/01/20 [id number] Ambulatory BMSBuilding: [place] [facility] Repository 01/22/2018/01/23/20 [id number] Ambulatory BMSBuilding: [place] 18 BMS.[facility] Repository 01/18/2018/01/19/20 [id number] Ambulatory BMSBuilding: [place] 18 BMS.CF[facility] Repository 01/18/2018/01/19/20 [id number] Ambulatory [place] ding:SDCRoom Repository : AC02 01/17/2018 [id number] Ambulatory BMSBuilding: [place] [facility] Repository 01/15/2018/01/16/20 [id number] Ambulatory BMSBuilding: [place] 18 BMS[facility] Repository 01/13/2018/01/14/20 [id number] Emergency [place] ding:ED Repository 08/08/2017/08/09/19 [id number] Ambulatory [address] ding:[facility] Repository 06/04/2017/06/05/19 [id number] Ambulatory [address] ding:OLAB [facility] Repository PAYERS PAYERS ENCOUNTER GUARANTOR PAYER SUBSCRIBER SOURCE 03/08/2018 JAROD VIZCAINO7 Primary MECHELLE [address] [place] Insurance:[employer]AREPol [facility] [place] icy Number: [id number] [address]Fuo: 330 [id number] Repository [phone] () e Date:[id number] [address] [place] [id number]: 03/08/2018 Secondary NOT GIVENUNK [place] Insurance:SELF PAY [facility] Number: Effective Repository Date:2018-03-08 03/07/2018 JAROD [id number] Primary MECHELLEELIER Sw[place]z [place] Insurance:[employer]ARE[place] STEVICB: [place], [place] icy Number: [id number] [address]Wgy: 330 [id number] Repository [phone] () e Date:1247-63-92[address], [place] [address]SX: 03/07/2018 Secondary MECHELLE K [place] Insurance:[facility] P[facility]AGE STEVICDOB: [facility] Number: [id number] [id number] Repository Date:2018-01-31 03/07/2018 Tertiary NOT GIVENUNK [place] Insurance:SELF PAY [facility] Number: Effective Repository Date:2018-01-31 02/28/2018 JAROD [id number] Primary MECHELLE K [place] Insurance:[employer]ARE[place] STEVICDOB: [facility] [place] icy Number: [id number] Hospital 17[address]Lmc: (330) [id number] Repository [phone] () e Date:4858-35-43LF [address] [place] [address]SY: 02/28/2018 Secondary NOT GIVENUNK [place] Insurance:SELF PAY [facility] Number: Effective Repository Date:2018-02-28 02/28/2018 JAROD [id number] Primary MECHELLE K [place] Insurance:[employer]ARE[place] STEVICDOB: [facility] [place] Number: [id number] Hospital [address]Mki: (330) [id number] Repository [phone] () e Date:9099-25-44HX [address] [place] [phone]: 02/28/2018 Secondary NOT GIVENUNK [place] Insurance:SELF PAY [facility] Number: Effective Repository Date:2018-02-27 01/31/2018 JAROD [id number] Primary MECHELLE K [place] Insurance:[employer]ARE[place] STEVICDOB: [facility] [place] Number: [id number] Hospital [address]Hlv: (330) [id number] Repository [phone] () e Date:3204-83-61HO [address] [place] [phone]: 01/31/2018 Secondary NOT GIVENUNK [place] Insurance:SELF PAY [facility] Number: Effective Repository Date:2018-01-31 01/31/2018 JAROD [id number] Primary MECHELLE K [place] Insurance:[employer] STEVICDOB: [facility] [place] Number: [id number] Hospital [address]Vbk: (330) [id number] Repository [phone] () e Date:3356-41-53JT [address], [place] [address]NK: 01/31/2018 Secondary NOT GIVENUNK [place] Insurance:SELF PAY [facility] Number: Effective Repository Date:2018-01-31 01/22/2018 JAROD [id number] Primary MECHELLE K [place] Insurance:[employer] STEVICDOB: [facility] [place] Number: [id number] Hospital 78[address]Bjr: (330) [id number] Repository [phone] () e Date:0246-00-12[address], [place] [address]NG: 01/22/2018 Secondary NOT GIVENUNK [place] Insurance:SELF PAY [facility] Number: Effective Repository Date:2018-01-21 01/18/2018 JAROD [id number] Primary MECHELLE K [place] Insurance:[employer] STEVICDOB: [facility] [place] Number: [id number] Hospital [address]Dpv: (330) [id number] Repository [phone] () e Date:4142-18-08YI [address], [place] [address]DZ: 01/18/2018 Secondary NOT GIVENUNK [place] Insurance:SELF PAY [facility] Number: Effective Repository Date:2018-01-18 01/18/2018 JAROD [id number] Primary MECHELLE K [place] Insurance:[employer] STEVICDOB: [facility] [place] Number: [id number] Hospital [address]Kdb: (330) [id number] Repository [phone] (HP) e Date:8880-04-78XY [address] [place] [phone]: 01/18/2018 Secondary NOT GIVENUNK [place] Insurance:SELF PAY [facility] Number: Effective Repository Date:2018-01-15 01/17/2018 JAROD [id number] Primary MECHELLE K [place] Insurance:[employer] STEVICDOB: [place] Number: [id number] Hospital [address]Vbw: (330) [id number] Repository [phone] (HP) e Date:3092-71-09PP [address] [place] [phone]: 01/17/2018 Secondary NOT GIVENUNK [place] Insurance:SELF PAY [facility] Number: Effective Repository Date:2018-01-17 01/15/2018 JAROD [id number] Primary MECHELLE K [place] Insurance:[employer] STEVICDOB: [facility] [place] Number: [id number] Hospital [address]Jjg: (330) [id number] Repository [phone] () e Date:5425-21-75CF [facility] [address] [place] [phone]: 01/15/2018 Secondary NOT GIVENUNK [place] Insurance:SELF PAY [facility] Number: Effective Repository Date:2018-01-15 01/13/2018 JAROD [id number] Primary MECHELLE K [place] Insurance:[employer] STEVICDOB: [place] Number: [id number] Hospital [address]Xbf: (330) [id number] Repository [phone] () e Date:0244-68-14RD [facility] [address] [place] [phone]: 01/13/2018 Secondary NOT GIVENUNK [place] Insurance:SELF PAY [facility] Number: Effective Repository Date:2018-01-13 08/08/2017 MECHELLE Maldonado [facility] Erica [facility] ERICHICDOB: Insurance:[employer] STEVICDOB: [facility] N [id number] Number: [id number] Repository [place] [id number] [address] [place] e Date:2017-07-31 [place] [email or web address] [id number]: (330) [email or web address]: Name: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 [phone] [place] [address] ()Tel: (000) (HP)Tel: [phone]: ([phone] 06/04/2017 MECHELLE Maldonado [facility] MECHELLE Maldonado [facility] ERICHICDOB: Insurance:RODRIGO JUNGICDOB: [facility] [id number] N [id number] Number: [id number] Repository [place] [id number] [address] [place] e Date:2017-06-04 [place] [email or web address] [id number]: (330) [email or web address]: 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
== END ==
PROVIDERS: Family Provider Preventive Medicine Occupational Medicine; PCP Preventive Medicine Occupational Medicine; Referring Provider Physician Assistant; Visit Provider Physician Assistant
DX: M25.531 Pain in right wrist (principal); Z98.890 Other specified postprocedural states
CPT/HCPCS: 73080; 73110

== ENCOUNTER → 2018-03-08 09:46 | Outpatient (CLI) | payer OTHER, SELFPAY ==
[2018-02-28 09:06] VITALS: BMI 23.4
[2018-03-08 10:55] LABS: AST(SGOT) 18 U/L (15-37); Alanine Aminotransfer ALT/SGPT 22 U/L (13-56); Albumin, Serum 3.7 g/dL (3.2-5.0); Alkaline Phosphatase 53 U/L (45-117); Anion Gap 8 (5-15); BUN 7 mg/dL (7-18); BUN/Creat Ratio 11.1 RATIO (10-20); Calcium,Total 8.8 mg/dL (8.5-10.1); Chloride 100 mmol/L (98-107); Cholesterol 232 mg/dL (200); Creatinine, Serum 0.63 mg/dL (0.55-1.02); EST Glomerular Filtration Rate 100 mL/min (>60); Est Glom Filt Rate - Afr Amer 122 mL/min (>60); Globulin 3.8 g/dL (2.2-4.2); Glucose 86 mg/dL (74-106); High Density Lipoprotein 75 mg/dL; Potassium 3.9 mmol/L (3.5-5.1); Protein, Total 7.5 g/dL (6.4-8.2); Sodium Level 137 mmol/L (136-145); Triglycerides 90 mg/dL; Very Low Density Lipoprotein 18 mg/dL (5-40)
[2018-03-08 11:01] LABS: Vitamin D,25 Hydroxy 46.8 ng/mL (29.95-100.01)
== END ==
PROVIDERS: Family Provider Preventive Medicine Occupational Medicine; PCP Preventive Medicine Occupational Medicine; Referring Provider Preventive Medicine Occupational Medicine; Visit Provider Preventive Medicine Occupational Medicine
DX: Z00.00 Encounter for general adult medical examination without abnormal findings (principal); E55.9 Vitamin D deficiency, unspecified
CPT/HCPCS: 36415; 80053; 80061; 82306

== ENCOUNTER 2018-06-24 10:30 | Outpatient (RCR) | payer OTHER, SELFPAY ==
[2018-01-31 10:42] VITALS: BMI 23.4
--- NOTE | 2018-02-01 08:51 | HP.OTEVAL_ITS ---
Patient's Visit Information RIVKA ÁLVAREZ is a 62 year old F, referred to Occupational Therapy by ESTEFANIA Boone, with a diagnosis of ORIF R wrist. Date of Evaluation: 02/01/18 Occupational Therapist: Jojo Bourgeois - Subjective Subjective: Arrived as referral from [facility]. She noted that had ORIF surgery two weeks ago with initial fracture occurring about three weeks ago. 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 - Pain Right Wrist 0 Pain Intensity Range: 0, 5 - ROM Wrist: Wrist flexion R 0-36, L ; extension R 0-0 neutral position, L 0-64 MP: R 0-46, L WFL IP: R thumb IP passive flexion 0-40, L WFL Radial Abduction: R 0-24, L WFL MP: R 2nd 0-80, 3rd 0-76, 4th 0-72, 5th 0-68; L WFL PIP: R 2nd 0-58, 3rd 0-68, 4th 0-80, 5th 0-69 DIP: R 2nd 0-21, 3rd 0-24, 4th 0-20, 5th 0-30, L WFL ROM Comments: Radial dev R 0-0, L 0-21. Ulnar Dev R 0-11, L 0-29. Pt. noted and increased stiffness noted t/o entire wrist and hand. She is unable to make full composite fist at this time and notes increased difficulty with active flexion of IP of R thumb. - Strength Utility Plant Operative: R 8, L 59 lbs Lateral Pinch: R 5, L 18 lbs Tripod Pinch: R 4, L 15 lbs Tip-to-Tip Pinch: R 4, L 1 lbs - Sensation Thumb: R 3.22, L 2.83 Index: R 3.22, L 2.83 Middle: R 3.22, L 2.83 Ring: R 3.61, L 2.83 Little: R 3.61, L 2.83 Sensation Comments: Increased sensitivity over the palm. - Nine Hole Peg Right: 48.92 s Left: 20.71 s Comments: R hand compensations from rolling out to side to promote - Quick DASH-Disab of Arm,Shoulder& Hand Quick DASH Score: 75.0000 - Hand/Wrist Evaluation Total Score of Pain & Functional Sections: 45 - Goals Goal:: Rivka to increased R shuttle buggy operator to 60-70% of L nonaffected shuttle buggy operator to promote increased ROM and strength to promote increased strength and stability needed to return to PLOF by d/c. Goal:: Rivka to increased R wrist ROM to 60-70% of L wrist ROM to promote increased ROM and mobility needed to return to PLOF by d/c. Goal:: Rivka to have no more than 1/10 pain with repetivitive movements 4/5 trials 80% of the time by d/c. Goal:: Rivka R hand to return to normal with use of semmes roberto touch ttest to promote returning to PLOF on R hand by d/c. Goal:: Rivka to complete regular scar massge to break up scar tissue 4/5 trials 80% of the time to promote increased ROM and decreased risk of sensitivity by d/c. Goal:: Rivka to be (I) to complete good wrist mechanics and alignment to promote integrity and decrease risk of further injury of R wrist by d/c. Goal:: Rivka to be (I) to return to all ADl/IADLs 100% of the time to promote increased ROM and strength of R hand to return to PLOF by d/c. - Rehabilitation General Assessment: Rivka arrived for OT evaluation on this date 02/01/18. She is s/p two weeks post- op of L wrist ORIF. She exhibits limited ROM, strength, and some decreased sensation. Rivka would benefit from 2x weekly appointment for the next 4-6 weeks. Rehabilitation Potential: Good - Anticipated Interventions Anticipated Interventions: A/AAROM/PROM, Strengthening, Edema Control, Scar Care, Triggerpoint Release, Desensitization, Sensory Retraining, Modalities, Orthoses, Joint Protection/Energy Conservation, Ergonomic Education, Fine Motor Coord/Davy, Visual/Perceptual Skills, Cognitive Skills, ADL Training, Caregiver Training, Home Program - Visit Plan Frequency: 2x /Week Duration: 4-6 Weeks General Plan: OT to include progressive ROM, PRE with strengthening program, modalities as needed for pain management and soft tissue mobility of TENs, moist heat, and general wrist mechanics to promote returning to PLOF. TEXT: Thank you for the opportunity to evaluate your patient. For Medicare and Medicare HMO plans, please review the plan of care and approve it. It will need to be FAXED BACK to us at [phone] for Medicare purposes. Please let me know if there are questions or concerns regarding this plan of care. Physician Signature: ____Date:
--- NOTE | 2018-02-26 10:29 | HP.OTREVAL ---
ESTEFANIA Boone, It has been my pleasure to treat RIVKA ÁLVAREZ over the last 8 visits for ORIF R wrist. Please see the progress note below for an update on the occupational therapy plan of care! Subjective: Arrived and noted that wrist is stiff. Feels like she has made progress, about 30-35% but still worried about stiffness. She explained she leaved for [place] in 2.5 weeks and would like this to be doing pretty well by then. Objective/Function: Completed reassessment on this date of 02/26/18 and results are as follows: ROM: Wrist. - Flexion: R 0-27, L WFL. - Extension R 0-11, L WFL. - Supination R 0-25, L WFL. MCP 2-5th digits. R 27-68, 15-71, 15-79, 9-84;L WFL. PIP 2nd-5th digits: R 8-84, 22-87, 16-93, 0-72, L WFL. DIP 2nd - 5th Digits: R 0-49, 19-60, 0-57, 0-45, L WFL. Sensation: R. 2nd 2.83, 3rd 2.83, 4th 2.83, 5th 2.83, thumb 2.83. L. 2nd 2.83, 3rd 2.83, 4th 2.83, 5th 2.83, thumb 3.22. Strength measurements: - Steersman R 10, L 78. - Lateral pinch R 10, L 17. - Tripod Pinch R 8, L 16. - Pinch R 7, L 14. Rivka has progressed from initial evaluation. Further skill OT required for continue progression of functional use of R dominant hand. Plan Frequency: 2x /Week Duration: 4 Weeks Visits in this POC: 8-12 Plan: continue POC for 2x weekly appointments for next 4 weeks and will continue when back from vacation. She is to continue HEP and will started BTE routine within up coming sessions as she is progressing towwards increased ROM. Goals - Goals Goal:: Rivka to increased R recruiter manager to 60-70% of L nonaffected recruiter manager to promote increased ROM and strength to promote increased strength and stability needed to return to PLOF by d/c. Goal:: Rivka to increased R wrist ROM to 60-70% of L wrist ROM to promote increased ROM and mobility needed to return to PLOF by d/c. Goal:: Rivka to have no more than 1/10 pain with repetivitive movements 4/5 trials 80% of the time by d/c. Goal:: Rivka R hand to return to normal with use of semmes roberto touch ttest to promote returning to PLOF on R hand by d/c. Goal:: Rivka to complete regular scar massge to break up scar tissue 4/5 trials 80% of the time to promote increased ROM and decreased risk of sensitivity by d/c. Goal:: Rivka to be (I) to complete good wrist mechanics and alignment to promote integrity and decrease risk of further injury of R wrist by d/c. Goal:: Rivka to be (I) to return to all ADl/IADLs 100% of the time to promote increased ROM and strength of R hand to return to PLOF by d/c. Anticipated Interventions Anticipated Interventions: A/AAROM/PROM, Strengthening, Edema Control, Scar Care, Triggerpoint Release, Desensitization, Sensory Retraining, Modalities, Orthoses, Joint Protection/Energy Conservation, Ergonomic Education, Fine Motor Coord/Davy, Visual/Perceptual Skills, Cognitive Skills, ADL Training, Caregiver Training, Home Program Please do not hesitate to contact me at [phone] by phone or if you have questions or concerns regarding this new plan of care! Sincerely, Jojo Bourgeois
--- NOTE | 2018-04-09 11:11 | HP.OTCOM ---
OT Communication Note 04/09/[address] Rinku Mckeon PA Measurements completed on this date of 04/09/18 and are as follows: Wrist: - flexion R 0-30 , L 0-75 - extension R 0-29, L 0-51 - supination R 0-66, L WFL Able to make to make composite fist with right hand. 9 hole pegboard test: R 18.30, L 20.91 s Sensory testing with monofilament test: R 2nd 2.83, 3rd 2.83, 4th 2.83, 5th 2.83, thumb 2.83 L 2nd 3.22, 3rd 3.22, 4th 2.83, 5th 2.83, thumb 3.61 She remains very stiff in all wrist measurements but is progressing. Limited range of motion for wrist flexion and extension. She shows increased stiffness throughout fingers. Elastomer and scar gel have been provided from start of therapy and with new elastomer provided throughout to promote decreasing scar formation. Additionally, functional e-stim has been implemented over last few sessions to promote increased range of motion and strength with functional movements to return to PLOF. Stiffness remains throughout right hand hand wrist. She has two- three more weeks of therapy and then will likely be discharged at completion of scheduled sessions. Sincerely, Jojo Bourgeois, OTR/L Contact Information
--- NOTE | 2018-05-02 12:03 | HP.OTREVAL ---
ESTEFANIA Boone, It has been my pleasure to treat RIVKA ÁLVAREZ over the last 20 visits for ORIF R wrist. Please see the progress note below for an update on the occupational therapy plan of care! Subjective: Arrived and noted that she may need volar splint adjusted. Feels she has made 80-85% improvement. She noted she feels it has always steadily improved but it has 'just been slow'. Objective/Function: New measurements taken on this date of 05/02/18 and are as follows: ROM: Wrist. - flexion R 0-39, L WFL. - extension R 0-35, L WFL. - Supination R 0-75, L WFL. Strengthening. Customer Retention Representative R 32, L 57. Lateral R 15, L 16. Three jaw R 10, L 6. Pincer R 7, L 13. 9 hole pegboard test: R: 16.18 s. L: 19.16 s. She has progressed in extension and supination from last measurements but some regression noted with flexion. Plan Frequency: 2 total Duration: 4 Weeks Visits in this POC: 2 for a total of 22 Plan: continue POC with 1x follow up every two weeks for help with adjustments of brace and to further measurements to help determine if dynasplint works. SHe was fitted for dynasplint by Rj yun at end of session. Goals - Goals Goal:: Rivka to increased R soils technician to 60-70% of L nonaffected soils technician to promote increased ROM and strength to promote increased strength and stability needed to return to PLOF by d/c. Goal:: Rivka to increased R wrist ROM to 60-70% of L wrist ROM to promote increased ROM and mobility needed to return to PLOF by d/c. Goal:: Rivka to have no more than 1/10 pain with repetivitive movements 4/5 trials 80% of the time by d/c. Goal:: Rivka R hand to return to normal with use of semmes roberto touch ttest to promote returning to PLOF on R hand by d/c. Goal:: Rivka to complete regular scar massge to break up scar tissue 4/5 trials 80% of the time to promote increased ROM and decreased risk of sensitivity by d/c. Goal:: Rivka to be (I) to complete good wrist mechanics and alignment to promote integrity and decrease risk of further injury of R wrist by d/c. Goal:: Rivka to be (I) to return to all ADl/IADLs 100% of the time to promote increased ROM and strength of R hand to return to PLOF by d/c. Anticipated Interventions Anticipated Interventions: A/AAROM/PROM, Strengthening, Edema Control, Scar Care, Triggerpoint Release, Desensitization, Sensory Retraining, Modalities, Orthoses, Joint Protection/Energy Conservation, Ergonomic Education, Fine Motor Coord/Davy, Visual/Perceptual Skills, Cognitive Skills, ADL Training, Caregiver Training, Home Program Please do not hesitate to contact me at [phone] by phone or if you have questions or concerns regarding this new plan of care! Sincerely, Jojo Bourgeois
--- NOTE | 2018-05-30 12:21 | OTREVAL_ITS ---
ESTEFANIA Boone, It has been my pleasure to treat RIVKA ÁLVAREZ over the last 22 visits for ORIF R wrist. Please see the progress note below for an update on the occupational therapy plan of care! Subjective: Arrived and noted splint is going well. She feels she is 90-95% improved and noted that 'wrist doesn't keep me from doing too much'. Objective/Function: Completed reassessment on this date of 05/30/18 and measurements are as follows: ROM. Wrist. - flexion R 0-45, L WFL. - extension R 0-39, L WFL. - supination R 0-84, L WFL. IF. - MCP R 0-75, L WFL. - PIP R 0-105, L WFL. - DIP R 0-54, L WFL. Strength. Pharmacovigilance Safety Expert R 42, L 58. Lateral pinch R 17, L 18. Tripod R 12, L 14. Pincer R 9, L 13. Able to make composite fist. She has progressed in measurements from two weeks ago. Plan Frequency: 1x/Week Duration: 1x in month Visits in this POC: 1 for a total of 23 Plan: Complete 1x month follow up as requested by patient as she is continuing dynasplint for increased ROM techniques to promote returning to PLOF. Will follow up in month. If she feels she is doing well and does not need appointment will d/c. She has progressed in all measurements from two weeks ago. Goals - Goals Goal:: Rivka to increased R videographer to 60-70% of L nonaffected videographer to promote increased ROM and strength to promote increased strength and stability needed to return to PLOF by d/c. Goal:: Rivka to increased R wrist ROM to 60-70% of L wrist ROM to promote increased ROM and mobility needed to return to PLOF by d/c. Goal:: Rivka to have no more than 1/10 pain with repetivitive movements 4/5 trials 80% of the time by d/c. Goal:: Rivka R hand to return to normal with use of semmes roberto touch ttest to promote returning to PLOF on R hand by d/c. Goal:: Rivka to complete regular scar massge to break up scar tissue 4/5 trials 80% of the time to promote increased ROM and decreased risk of sensitivity by d/c. Goal:: Rivka to be (I) to complete good wrist mechanics and alignment to promote integrity and decrease risk of further injury of R wrist by d/c. Goal:: Rivka to be (I) to return to all ADl/IADLs 100% of the time to promote increased ROM and strength of R hand to return to PLOF by d/c. Anticipated Interventions Anticipated Interventions: A/AAROM/PROM, Strengthening, Edema Control, Scar Care, Triggerpoint Release, Desensitization, Sensory Retraining, Modalities, Orthoses, Joint Protection/Energy Conservation, Ergonomic Education, Fine Motor Coord/Davy, Visual/Perceptual Skills, Cognitive Skills, ADL Training, Caregiver Training, Home Program Please do not hesitate to contact me at [phone] by phone or if you have questions or concerns regarding this new plan of care! Sincerely, Jojo Bourgeois
--- NOTE | 2018-06-24 11:24 | HP.OTDCSUM_ITS ---
HP - OT D/C Summary It has been my pleasure to treat RIVKA ÁLVAREZ under orders from ESTEFANIA Boone, for the diagnosis of ORIF R wrist for a total of 23 visit(s). Please see the following information for a summary of their discharge status. - Overall Improvement % Improvement: 98 - Objective Objective/Function: Completed reassessment on this date of 06/24/18 and results are as follows: ROM. Wrist. - flexion: R 0-45, L WFL. - extension: R 0-38, L WFL. - supination: R 0-91, L WFL. Rivka is able to complete full composite fist. Completed FES to promote increased stretch and she does show increased ROM post FES unit. Completed following measurements after 8 minute FES task: Wrist. - flexion R 0-53. - extension R 0-41. Strength: - mail processing clerk R 43, L 65 lbs. - lateral R 18, L 19 lbs. - three jaw kwabena: R 13, L 16 lbs. - Pincer: R 10, L 14 lbs. 9 hole pegboard test: R 16.21, L 21.48 seconds. Rivka has progressed significantly thoughout the course of therapy and will be d/c'd at this time. - Goals Patient Goals: Regain Mobility, Regain Strength, Decrease Pain, Return to Work, Decrease Swelling/Stiffness, Improve Fine Motor Skills, Use Hand/Wrist/Arm Normally Again, Sleep Better, Decrease Tingling/Numbness, Increase ROM, Be More Independent in ADLS, Resume Former Household Responsibilities (Cooking,Cleaning,Yard, etc.), Resume Hobbies Goal:: Rivka to increased R mail processing clerk to 60-70% of L nonaffected mail processing clerk to promote increased ROM and strength to promote increased strength and stability needed to return to PLOF by d/c. Goal:: Rivka to increased R wrist ROM to 60-70% of L wrist ROM to promote increased ROM and mobility needed to return to PLOF by d/c. Goal:: Rivka to have no more than 1/10 pain with repetivitive movements 4/5 t rials 80% of the time by d/c. Goal:: Rivka R hand to return to normal with use of semmes roberto touch ttest to promote returning to PLOF on R hand by d/c. Goal:: Rivka to complete regular scar massge to break up scar tissue 4/5 trials 80% of the time to promote increased ROM and decreased risk of sensitivity by d/c. Goal:: Rivka to be (I) to complete good wrist mechanics and alignment to promote integrity and decrease risk of further injury of R wrist by d/c. Goal:: Rivka to be (I) to return to all ADl/IADLs 100% of the time to promote increased ROM and strength of R hand to return to PLOF by d/c. - Plan Plan: She will be d/c'd today and is to call with questions or concerns. She is has significantly progressed since time of initial evaluation. At one point in therapy we had discussed potential of getting FES unit from home prior to getting script for karolyn splint. She has progressed with therapy and use of dynasplint. If for some reason she feels she is losing ROM, then we could potentially look into FES unit with doctors approval but she is to continue to trial techniques provided over the courses of therapy at home as she has progressed nicely with treatment. - D/C Information If there are questions or concerns regarding this patient's occupational therapy, please fell free to call me at [phone]. Thank you for the referral of this patient. Sincerely, Jojo Bourgeois, OTR/L
== END 2018-06-24 19:00 | disposition home or self-care (01) ==
LOC: OT 10:30
PROVIDERS: Family Provider Preventive Medicine Occupational Medicine; PCP Preventive Medicine Occupational Medicine; Referring Provider Physician Assistant; Visit Provider Physician Assistant
DX: Z98.890 Other specified postprocedural states (principal)
CPT/HCPCS: 97110; 97140; 97166; 97168; 97530; 97760

== ENCOUNTER → 2018-09-12 | Outpatient (CLI) | payer MEDICARE, SELFPAY ==
[2018-07-03 09:23] VITALS: BMI 23.4
--- NOTE | 2018-09-12 10:45 | BI_ITS ---
MAMMOGRAPHY - BILATERAL SCREENING REASON FOR EXAM: Female, 62 years old. Routine annual screening examination. PERTINENT HISTORY: Non-contributory. TECHNIQUE: Digital bilateral breast dimas (3D mammographic acquisition) in the CC and MLO projections. 2-D mediolateral oblique (MLO) and craniocaudad (CC) views of both breasts were obtained. CAD: Full Field Digital Mammography with Computer Added Detection was performed. COMPARISON: Comparison is made with prior outside examination dated August 08, 2017 and August 07, 2016. FINDINGS: Breast Composition: There are scattered areas of fibroglandular density. There are no dominant masses or suspicious calcifications. No other significant abnormalities are identified. There has been no significant change since the prior study. BI/SCREEN MAMM (CAD) W/DIMAS BILAT IMPRESSION: Stable bilateral screening mammogram. Yearly follow-up mammogram recommended. (A) ASSESSMENT CATEGORY: BIRADS Category 1: Negative. A letter regarding these results will be sent to the patient by the facility within 30 days. Approximately 10% of breast cancers are not detected by mammography. A normal mammogram should not delay biopsy of a clinically suspicious abnormality. [id number] Electronically Signed: Tobias Mcqueen, at 9:28 EDT , Service support ,
== END | disposition home or self-care (01) ==
LOC: OPBI 10:41
PROVIDERS: Family Provider Preventive Medicine Occupational Medicine; PCP Preventive Medicine Occupational Medicine; Referring Provider Obstetrics & Gynecology Gynecology; Visit Provider Obstetrics & Gynecology Gynecology
DX: Z12.31 Encounter for screening mammogram for malignant neoplasm of breast (principal)
CPT/HCPCS: 77063; 77067

== ENCOUNTER → 2019-09-25 09:48 | Outpatient (CLI) | payer MEDICARE, OTHER, SELFPAY ==
[2018-07-03 09:23] VITALS: BMI 23.4
--- NOTE | 2019-09-25 09:51 | BI_ITS ---
MAMMOGRAPHY - BILATERAL SCREENING REASON FOR EXAM: Female, 63 years old. Routine annual screening examination. PERTINENT HISTORY: Non-contributory. TECHNIQUE: Digital bilateral breast dimas (3D mammographic acquisition) in the CC and MLO projections. 2-D mediolateral oblique (MLO) and craniocaudad (CC) views of both breasts were obtained. CAD: Full Field Digital Mammography with Computer Added Detection was performed. COMPARISON: Comparison is made with prior study 09/12/2018 and 08/07/2016. FINDINGS: Breast Composition: There are scattered areas of fibroglandular density. There are no dominant masses or suspicious calcifications. No other significant abnormalities are identified. There has been no significant change since the prior study. BI/SCREEN MAMM (CAD) W/DIMAS BILAT IMPRESSION: Stable bilateral screening mammogram. Yearly follow-up mammogram recommended. (A) ASSESSMENT CATEGORY: BIRADS Category 1: Negative. A letter regarding these results will be sent to the patient by the facility within 30 days. Approximately 10% of breast cancers are not detected by mammography. A normal mammogram should not delay biopsy of a clinically suspicious abnormality. [id number] Electronically Signed: Tobias Mcqueen, at 11:05 EDT , Service support ,
== END ==
PROVIDERS: PCP Preventive Medicine Occupational Medicine; Referring Provider Obstetrics & Gynecology Gynecology; Visit Provider Obstetrics & Gynecology Gynecology
DX: Z12.31 Encounter for screening mammogram for malignant neoplasm of breast (principal)
CPT/HCPCS: 77063; 77067

== ENCOUNTER → 2020-03-10 | Outpatient (CLI) | payer MEDICARE, OTHER, SELFPAY ==
[2018-07-03 09:23] VITALS: BMI 23.4
== END | disposition home or self-care (01) ==
LOC: LABSPEC 14:22
PROVIDERS: PCP Internal Medicine; Referring Provider Internal Medicine; Visit Provider Internal Medicine
DX: Z20.828 Contact with and (suspected) exposure to other viral communicable diseases (principal)
CPT/HCPCS: 87635; U0005; U0003

== ENCOUNTER 2020-07-08 08:17 | Outpatient (RCR) | payer MEDICARE, OTHER, SELFPAY ==
[2018-07-03 09:23] VITALS: BMI 23.4
== END 2020-08-12 23:59 ==
LOC: IMMUN 08:17
PROVIDERS: PCP Internal Medicine; Referring Provider Family Medicine; Visit Provider Family Medicine
DX: Z23 Encounter for immunization (principal)
CPT/HCPCS: 0001A; 0002A; 91300

== ENCOUNTER → 2020-10-21 09:57 | Outpatient (CLI) | payer MEDICARE, OTHER, SELFPAY ==
[2018-07-03 09:23] VITALS: BMI 23.4
--- NOTE | 2020-10-21 10:00 | BI_ITS ---
MAMMOGRAPHY - BILATERAL SCREENING REASON FOR EXAM: Female, 65 years old. Routine annual screening examination. PERTINENT HISTORY: Non-contributory. TECHNIQUE: Digital bilateral breast dimas (3D mammographic acquisition) in the CC and MLO projections. 2-D mediolateral oblique (MLO) and craniocaudad (CC) views of both breasts were obtained. CAD: Full Field Digital Mammography with Computer Added Detection was performed. COMPARISON: Comparison is made with prior study 09/25/2019 and 09/12/2018. FINDINGS: Breast Composition: There are scattered areas of fibroglandular density. There are no dominant masses or suspicious calcifications. No other significant abnormalities are identified. There has been no significant change since the prior study. BI/SCRN MAMM (CAD)W/DIMAS BILAT IMPRESSION: Stable bilateral screening mammogram. Yearly follow-up mammogram recommended. (A) ASSESSMENT CATEGORY: BIRADS Category 1: Negative. A letter regarding these results will be sent to the patient by the facility within 30 days. Approximately 10% of breast cancers are not detected by mammography. A normal mammogram should not delay biopsy of a clinically suspicious abnormality. [id number] Electronically Signed: Tobias Mcqueen MD at 11:01 EDT , Service support ,
== END ==
PROVIDERS: PCP Preventive Medicine Occupational Medicine; Referring Provider Obstetrics & Gynecology Gynecology; Visit Provider Obstetrics & Gynecology Gynecology
DX: Z12.31 Encounter for screening mammogram for malignant neoplasm of breast (principal)
CPT/HCPCS: 77063; 77067

== ENCOUNTER → 2021-12-02 | Outpatient (CLI) | payer MEDICARE, OTHER, SELFPAY ==
--- NOTE | 2021-12-02 07:21 | BI_ITS ---
MAMMOGRAPHY - BILATERAL SCREENING 3-D TOMOSYNTHESIS REASON FOR EXAM: Female, 66 years old. Routine screening PERTINENT HISTORY: No significant family history. TECHNIQUE: 2-D mammograms and 3-D Tomosynthesis of the breast (s) were performed. CAD was performed. COMPARISON: 09/25/2019 FINDINGS: The breast composition is composed of scattered fibroglandular density. Scattered benign calcifications are seen. No dense spiculated masses or suspicious microcalcifications are identified. No architectural distortion is identified. There is no skin thickening or retraction. There has been no significant change since the prior study. BI/SCRN MAMM (CAD)W/DIMAS BILAT IMPRESSION: No mammographic signs of malignancy. Routine yearly mammograms recommended. ASSESSMENT CATEGORY: BIRADS Category 1: Negative. A letter regarding these results will be sent to the patient by the facility within 30 days. FOLLOW UP RECOMMENDATION: Yearly follow up mammogram recommended. (A) Approximately 10% of breast cancers are not detected by mammography. A normal mammogram should not delay biopsy of a clinically suspicious abnormality. Electronically Signed: Tiago Garcia MD at 8:11 EDT ,
== END | disposition home or self-care (01) ==
LOC: OPBI 07:19
PROVIDERS: PCP Preventive Medicine Occupational Medicine; Referring Provider Obstetrics & Gynecology Gynecology; Visit Provider Obstetrics & Gynecology Gynecology
DX: Z12.31 Encounter for screening mammogram for malignant neoplasm of breast (principal)
CPT/HCPCS: 77063; 77067

== ENCOUNTER 2022-07-08 11:58 | Emergency (ER) | payer MEDICARE, OTHER, SELFPAY ==
[2022-07-08 11:59] VITALS: BP 188/68; PULSE 64; RESP 16; TEMP 36.5; O2SAT 100; BMI 22.6
--- NOTE | 2022-07-08 12:11 | RAD_ITS ---
STUDY: X-RAY CHEST REASON FOR EXAM: Female, 66 years old. back pain TECHNIQUE: Single AP portable view of the chest. COMPARISON: CTA of the chest dated May 11, 2016 FINDINGS: The lungs are hyperinflated with mild cystic emphysematous changes. The lungs are clear and expanded. There is no demonstrated pleural abnormality. Normal size heart. Normal mediastinum and holly. Normal visualized pulmonary arteries. There is atherosclerotic calcification of the aortic arch with tortuosity. There are diffuse degenerative changes of the visualized thoracic spine. Normal visualized ribs, clavicles, and shoulders. There is no demonstrated abnormality of the visualized soft tissue structures of the upper abdomen. RAD/Chest 1 View (Portable) IMPRESSION: 1. COPD. No demonstrated acute cardiopulmonary process. Electronically Signed: Jv Kruse MD at 13:44 EDT ,
--- NOTE | 2022-07-08 12:12 | EKG12_ITS ---
Test Reason : DIZZY Blood Pressure : / mmHG Vent. Rate : 059 BPM Atrial Rate : 059 BPM P-R Int : 148 ms QRS Dur : 076 ms QT Int : 430 ms P-R-T Axes : 062 008 018 degrees QTc Int : 425 ms Sinus bradycardia Nonspecific ST abnormality Abnormal ECG Confirmed by JENIFFER WILSON, MIRELLA ([id number]), research editor ARDEN VILLALTA ([id number]) on 07/11/2022 10:27:22 AM Referred By: Confirmed By:MIRELLA SWIFT MD
--- NOTE | 2022-07-08 12:12 | EX.ED.DYSGE1 ---
HPI History of Present Illness Chief Complaint: Dizziness Narrative Narrative: Patient presents with lightheadedness, its been ongoing for the past 2 months, its intermittent. She wants to make sure it is not her heart or electrolyte abnormality she called her PCP who referred her to the ED. She has no fevers or chills. She has no cough or congestion. She does not have vertigo. She does not have any disequilibrium she does not have any vision changes or any neurological symptoms. She does not have any chest pain. She has been working in her garden and developed back pain across her shoulder blades. [facility] Medical History (Updated 07/08/22 @ 13:[address] Alberto Owens MD) HTN (hypertension) Hypothyroid Home Medications atenolol 50 mg tablet 50 mg PO DAILY 05/11/16 [History Last Taken 01/18/18 04:00 50 MG] levothyroxine 75 mcg tablet 75 mcg PO QHS 05/11/16 [History Last Taken 01/13/18] lisinopril 10 mg tablet 10 mg PO QHS 05/11/16 [History Last Taken 01/13/18] hydrocodone-acetaminophen 5-325mg 5mg-325mg ([place]) 1 ea PO Q4H PRN PRN Pain #20 tabs 01/13/18 [Rx Last Taken Unknown] cholecalciferol (vitamin D3) 50 mcg (2,000 unit) capsule (Vitamin D3) 2,000 unit PO DAILY 01/16/18 [History Last Taken Unknown] conj estrogen-medroxyprogesterone 0.3 mg-1.5 mg tablet (Prempro) 1 ea PO Q5D 01/16/18 [History Last Taken Unknown] fluticasone propionate 50 mcg/actuation nasal spray,suspension 1 spray DAILY PRN Nasal Congestion 01/16/18 [History Last Taken Unknown] Allergy/AdvReac Type Severity Reaction Status Date / Time No Known Allergies Allergy Verified 02/28/18 09:02 Social History Smoking Status: Never smoker ROS ROS ED ROS Narrative Past medical history: Reviewed Medications: Reviewed Social history: Noncontributory Review of systems: General: No fever, lightheadedness as in HPI Eyes: No visual changes ENT: No upper airway congestion, normal voice Neck: No neck pain Cardiovascular: No chest pain. No pleuritic component Respiratory: No shortness of breath or cough Gastrointestinal: No abdominal pain, nausea vomiting or diarrhea Genitourinary: No dysuria Musculoskeletal: Denies myalgias no difficulty with ambulation. No edema. Back pain as in HPI Skin: No rash Neurological: No memory loss, confusion or any focal weakness EXAM Physical Exam Narrative Exam Narrative: Physical exam General: Patient appears comfortable. She does not appear ill, she does not appear in any distress Head: Normocephalic, Atraumatic Eyes: Conjunctiva not pale ENT: Slightly dry mucous membranes Neck: Supple, Nontender, No lymphadenopathy Cardiovascular: Regular rate, Regular rhythm Respiratory: No distress, CTA bilaterally Abdomen: Soft, Nontender, Nondistended Back: Tenderness in the bilateral paraspinal region of the thoracic and both sides of the trapezius muscle, I can reproduce the pain. Extremities: Nontender, No edema. No calf pain. Full range of motion Skin: Normal color, No rash Neurological: Alert, Normal Strength, Normal Sensation Const Vital Signs: 07/08/22 11:59 07/08/22 12:46 Temperature 97.7 F L Temperature Source Temporal Pulse Rate 64 Respiratory Rate 16 Respiratory Effort Normal Non-Labored Blood Pressure 188/68 H Blood Pressure Mean 108 Pulse Ox 100 Oxygen Delivery Method Room Air MDM MDM MDM Narrative Medical decision making narrative: Patient's work-up is normal. There is no evidence of NH, no evidence of pneumonia, no evidence of electrolyte abnormalities or severe dehydration. White count is normal no evidence of infection. Patient's symptoms could have been attributed to a thyroid issue which she has had in the past but the TSH is normal. At this time I do not believe patient meets criteria for CT. Chest x-ray interpreted by me is normal. I will discharge her in stable condition if anything changes she is to return. Lab Data Labs: Laboratory Results - last 24 hr 07/08/22 07/08/22 12:20 12:20 WBC 5.9 RBC 3.96 L Hgb 12.7 Hct 38.0 MCV 96.0 MCH 32.1 H MCHC 33.4 RDW Std Deviation 45.8 H RDW Coeff of Norm 13.0 Plt Count 216 MPV 10.7 Immature Gran % (Auto) 1.400 H Neut % (Auto) 44.5 L Lymph % (Auto) 37.2 [place] % (Auto) 11.7 H Eos % (Auto) 4.3 Baso % (Auto) 0.9 Absolute Neuts (auto) 2.6 Absolute Lymphs (auto) 2.19 Nucleated RBC % 0 Sodium 140 Potassium 3.9 Chloride 105 Carbon Dioxide 27.0 Anion Gap 8 BUN 14 Creatinine 0.74 Estim Creat Clear Calc 46.50 Est GFR (MDRD) Af Amer 100 Est GFR (MDRD) Non-Af 83 BUN/Creatinine Ratio 18.9 Glucose 105 Calcium 9.4 Total Bilirubin 1.40 H AST 22 ALT 22 Alkaline Phosphatase 66 Troponin I High Sens 4 Total Protein 7.8 Albumin 3.8 Globulin 4.0 Albumin/Globulin Ratio 1.0 TSH 1.53 Radiography Chest X-Ray - ED: 1 View, Read by ED Physician and No Acute Disease EKG Initial EKG: Comments: Sinus rhythm with a rate of 59. Normal CA interval. Normal QTc interval. No ischemic changes. Normal EKG Interpreted by emergency doctor Discharge Plan Triage Chief Complaint: Dizziness ED Provider: Alberto Owens Dx/Rx/DC Orders Clinical Impression: Light-headed feeling, Hypertension, Hypothyroidism Prescriptions: No Action levothyroxine 75 MCG tablet 75 mcg PO QHS lisinopril 10 MG tablet 10 mg PO QHS Label Comments: atenolol 50 MG tablet 50 mg PO DAILY Label Comments: hydrocodone-acetaminophen [[place]] 1 EACH tablet 1 ea PO Q4H PRN PRN (Reason: Pain) Qty: 20 0RF fluticasone propionate 1 SPRAY spray,suspension 1 spray NASAL DAILY PRN (Reason: Nasal Congestion) conj estrog-medroxyprogest barb [Prempro] 1 EACH tablet 1 ea PO Q5D cholecalciferol (vitamin D3) [Vitamin D3] 2,000 UNIT capsule 2,000 unit PO DAILY Primary Care Provider: Noel Bee Referrals: Noel Bee DO [Primary Care Provider] - 3-5 Days Disposition Disposition: Home, Self Care
[2022-07-08 12:30] LABS: Absolute Lymphocyte Count 2.19 X10^3/uL (0.83-4.51); Absolute Neutrophil Count 2.6 X10^3/uL (2.0-7.7); Basophil# 0.05 X10^3/uL; Basophil% 0.9 % (0-1); Eosinophil# 0.25 X10^3/uL; Eosinophils% 4.3 % (0-5); Hemoglobin 12.7 g/dL (12.0-15.0); Lymphocyte # 2.19 X10^3/ul (0.83-4.51); Lymphocyte % 37.2 % (19-41); Mean Corp Hgb Conc 33.4 g/dL (32-36); Mean Corpuscular Hgb 32.1 pg (27.0-32.0); Mean Platelet Vol. 10.7 fl (6.2-12.0); Monocyte# 0.69 X10^3/uL; Monocyte% 11.7 % (0-10); NRBC Flagged by Analyzer 0 % (0-5); Neutrophil # 2.62 X10^3/uL (2.7-7.7); Neutrophil % 44.5 % (47-70); Platelet Count 216 K/mm3 (150-450); RBC Distribution Width SD 45.8 fl (35.1-43.9); Red Blood Count 3.96 M/mm3 (4.2-5.4); White Blood Count 5.9 K/mm3 (4.4-11.0)
[2022-07-08 12:51] LABS: AST(SGOT) 22 U/L (15-37); Alanine Aminotransfer ALT/SGPT 22 U/L (13-56); Albumin, Serum 3.8 g/dL (3.2-5.0); Alkaline Phosphatase 66 U/L (45-117); Anion Gap 8 (5-15); BUN 14 mg/dL (7-18); BUN/Creat Ratio 18.9 RATIO (10-20); Calcium,Total 9.4 mg/dL (8.5-10.1); Chloride 105 mmol/L (98-107); Creatinine, Serum 0.74 mg/dL (0.55-1.02); EST Glomerular Filtration Rate 83 mL/min (>60); Est Glom Filt Rate - Afr Amer 100 mL/min (>60); Glucose 105 mg/dL (74-106); Potassium 3.9 mmol/L (3.5-5.1); Protein, Total 7.8 g/dL (6.4-8.2); Sodium Level 140 mmol/L (136-145); Thyroid Stim Hormone (TSH) 1.53 uIU/mL (0.358-3.74); Troponin-I HS 4 pg/mL (3.0-54.0)
[2022-07-08 13:43] VITALS: BP 112/86; PULSE 78; RESP 18; O2SAT 98
== END 2022-07-08 13:43 | disposition home or self-care (01) ==
PROVIDERS: Emergency Provider Emergency Medicine; PCP Preventive Medicine Occupational Medicine; Visit Provider Emergency Medicine
DX: R42 Dizziness and giddiness (principal); E03.9 Hypothyroidism, unspecified; I10 Essential (primary) hypertension; Z79.899 Other long term (current) drug therapy
CPT/HCPCS: 71045; 80053; 84443; 84484; 85025; 93005; 99283; A4216

== ENCOUNTER → 2022-12-21 | Outpatient (CLI) | payer MEDICARE, OTHER, SELFPAY ==
--- NOTE | 2022-12-21 08:27 | BI_ITS ---
MAMMOGRAPHY - BILATERAL SCREENING REASON FOR EXAM: Female, 67 years old. Routine annual screening examination. PERTINENT HISTORY: Non-contributory. TECHNIQUE: Digital bilateral breast dimas (3D mammographic acquisition) in the CC and MLO projections. 2-D mediolateral oblique (MLO) and craniocaudad (CC) views of both breasts were obtained. CAD: Full Field Digital Mammography with Computer Added Detection was performed. COMPARISON: Comparison is made with prior study of December 02, 2021 and October 21, 2020. FINDINGS: Breast Composition: There are scattered areas of fibroglandular density. There are no dominant masses or suspicious calcifications. No other significant abnormalities are identified. There has been no significant change since the prior study. BI/SCRN MAMM (CAD)W/DIMAS BILAT IMPRESSION: Stable bilateral screening mammogram. Yearly follow-up mammogram recommended. (A) ASSESSMENT CATEGORY: BIRADS Category 1: Negative. A letter regarding these results will be sent to the patient by the facility within 30 days. Approximately 10% of breast cancers are not detected by mammography. A normal mammogram should not delay biopsy of a clinically suspicious abnormality. [id number] Electronically Signed: Tobias Mcqueen MD at 9:17 EST ,
== END | disposition home or self-care (01) ==
LOC: OPBI 08:26
PROVIDERS: PCP Preventive Medicine Occupational Medicine; Referring Provider Obstetrics & Gynecology Gynecology; Visit Provider Obstetrics & Gynecology Gynecology
DX: Z12.31 Encounter for screening mammogram for malignant neoplasm of breast (principal)
CPT/HCPCS: 77063; 77067

== ENCOUNTER → 2023-12-27 | Outpatient (CLI) | payer MEDICARE, OTHER, SELFPAY | END | disposition home or self-care (01) | LOC: OPBI 08:41 | PROVIDERS: PCP Preventive Medicine Occupational Medicine; Referring Provider Obstetrics & Gynecology Gynecology; Visit Provider Obstetrics & Gynecology Gynecology | DX: Z12.31 Encounter for screening mammogram for malignant neoplasm of breast (principal) | CPT/HCPCS: 77063; 77067 ==

== ENCOUNTER → 2024-07-18 | Outpatient (CLI) | payer MEDICARE, OTHER, SELFPAY ==
--- NOTE | 2024-07-18 13:52 | CT_ITS ---
PROCEDURE: LIMITED CHEST CT CARDIAC ONLY REASON FOR EXAM: SCREENING FOR HEART DISEASE TECHNIQUE: CT for coronary artery calcium scoring. One or more dose reduction techniques were used (e.g., Automated exposure control, adjustment of the mA and/or kV according to patient size, use of iterative reconstruction technique). COMPARISON: None. CT/Limited Chest CT Cardiac Only IMPRESSION: Limited imaging of the lungs demonstrates no acute process. No pleural effusion or pneumothorax is seen in visualized areas. No adenopathy is noted. The visualized upper abdomen demonstrates no significant abnormality. Reading Location: [id number]
--- NOTE | 2024-07-28 18:25 | CA.SCORE ---
Calcium Scoring Date of Study:: 07/18/24 Indications Indications: FH Coronary Calcium Scoring: High-resolution Computed Tomographic imaging of the chest was performed on [07/18/24 ], with particular attention paid to the coronary arteries. Images from the examination were analyzed for the presence and extent of coronary artery calcification , using coronary calcium quantification software. The patient tolerated the procedure well and there were no complications. The results of the coronary calcification analysis are provided below. Findings Coronary Artery Left Main (LM): 43 Left Anterior Descending (LAD): 155 Left Circumflex (LCX): 0 Right Coronary Artery (RCA): 0 Total Agatston Score: 198 Percentile Rankin%-75% Calcium Scoring Interpretation: Different methods to categorize the overall amount of coronary plaque. Overall amount CAC SIS Visual of coronary plaque P1 Mild -100 <2 1-2 vessels with mild amount of plaque P2 Moderate 101-300 3-4 1-2 vessels with moderate amount, 3 vessels with mild amount of plaque P3 Severe 301-999 5-7 3 vessels with moderate amount, 1 vessel with severe amount of plaque P4 Extensive >1000 >8 2-3 vessels with severe amount of plaque Calcium Score: Moderate: 1-2 vessels w/moderate amt, 3 vessels w/mild amt of plaque Conclusion: Moderate two-vessel plaquing.
== END | disposition home or self-care (01) ==
PROVIDERS: PCP Preventive Medicine Occupational Medicine; Referring Provider Preventive Medicine Occupational Medicine; Visit Provider Preventive Medicine Occupational Medicine
DX: Z13.6 Encounter for screening for cardiovascular disorders (principal); Z82.49 Family history of ischemic heart disease and other diseases of the circulatory system
CPT/HCPCS: 75571; 76380

== ENCOUNTER 2024-12-28 12:28 | Emergency (ER) | payer MEDICARE, OTHER, SELFPAY ==
[2024-12-28 12:29] VITALS: BP 162/144; PULSE 74; RESP 16; TEMP 36.6; O2SAT 99; BMI 20.9
--- NOTE | 2024-12-28 12:51 | RAD_ITS ---
PROCEDURE: WRIST MIN 3 VIEWS 12/28/2024 REASON FOR EXAM: Pain after trauma TECHNIQUE: Procedure Code: RADWR Modality: DX Procedure: WRIST MIN 3 VIEWS Laterality: Right COMPARISON: None FINDINGS: Profound osteopenia with acute, minimally displaced fractures in the distal metaphysis of the radius and the ulnar styloid. There is associated soft tissue swelling. No demonstrated fracture within the carpals or metacarpals. Arthritic narrowing of the radioscaphoid joint space and of the base of the thumb. 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
--- NOTE | 2024-12-28 12:56 | EX.ED.UPPERE ---
HPI History of Present Illness Chief Complaint: Upper Extremity Injury Narrative Narrative: 69-year-old female, [id number], presents with injury to her left wrist that she sustained approximately an hour and a half ago. This was after she fell. She states [place] in the [place], and they were acorns in a small hill. She slipped and fell and fell onto her left side injuring her left wrist. She denies hitting her head or loss of consciousness, no neck pain or other injury. She noticed swelling diffusely throughout her left wrist. She is concerned mainly because about 7 to 8 years ago she was walking through the [place], and sustained an injury to her right wrist which required orthopedic surgery. She has pain worse with movement of her left wrist and swelling noted. No pain at the elbow. She states she has been able to move her fingers. Does not take blood thinners. [facility] Medical History HTN (hypertension) Hypothyroid Home Medications Medication Instructions Recorded Last Taken Type atenolol 50 mg tablet 50 mg PO DAILY 05/11/16 01/18/18 04:00 History 50 MG levothyroxine 75 mcg tablet 75 mcg PO QHS 05/11/16 01/13/18 History lisinopril 10 mg tablet 10 mg PO QHS 05/11/16 01/13/18 History hydrocodone-acetaminophen 5-325mg 1 ea PO Q4H PRN PRN Pain #20 tabs 01/13/18 Unknown Rx 5mg-325mg ([place]) cholecalciferol (vitamin D3) 50 2,000 unit PO DAILY 01/16/18 Unknown History mcg (2,000 unit) capsule (Vitamin D3) conj estrogen-medroxyprogesterone 1 ea PO Q5D 01/16/18 Unknown History 0.3 mg-1.5 mg tablet (Prempro) fluticasone propionate 50 1 spray DAILY PRN Nasal Congestion 01/16/18 Unknown History mcg/actuation nasal spray,suspension oxycodone 5 mg tablet 5 mg PO Q6H PRN pain 3 days #12 12/28/24 Unknown Rx tabs Allergy/AdvReac Type Severity Reaction Status Date / Time No Known Allergies Allergy Verified 12/28/24 12:29 Social History Smoking Status: Never smoker ROS ROS ED ROS Narrative Review of systems positive for left wrist pain and swelling status post fall. [id number]. Pain worse with movement and diffusely throughout left wrist. EXAM Physical Exam Narrative Exam Narrative: GCS 15. ABCs are intact. Cardiovascular semination regular rate and rhythm. Lungs clear to auscultation bilaterally. Abdomen soft and nontender with normoactive bowel sounds. Focused examination of the left wrist shows diffuse tenderness to palpation but no obvious deformity. Palpable radial pulse. Able to oppose thumb and move fingers. No pain at elbow. Flexion and extension of left elbow intact. No crepitance. Const Vital Signs: 12/28/24 12:29 Temperature 97.9 F Temperature Source Oral Pulse Rate 74 Respiratory Rate 16 Blood Pressure 162/144 H Blood Pressure Mean 150 Pulse Ox 99 Oxygen Delivery Method Room Air MDM MDM MDM Narrative Medical decision making narrative: Differential diagnosis includes but not limited to distal radius fracture versus ulnar styloid fracture versus wrist sprain. Patient declined any oral analgesics including Tylenol and ibuprofen, and she already has an ice pack. X-rays were obtained of the left wrist and 3 views and interpreted by myself independently. On my independent interpretation, there is a minimally displaced distal radius fracture as well as an ulnar styloid fracture. I reviewed the radiology report which confirms my independent interpretation. Patient was placed in an AP Ortho-Glass splint and referred to [facility] on-call, Dr. Juárez as she has seen their practice previously albeit remotely. She was accepting of a prescription for 12 oxycodone 5 mg tablets to take over the next few days for breakthrough pain as she prefers Tylenol or ibuprofen. She declined medication here in the emergency department once again. She was given a sling for comfort but told to exercise her left shoulder a few times a day. She should follow-up with orthopedics within the next week and call the office tomorrow. Return instructions to the emergency department were reviewed. Disposition is discharged home in stable condition. History & Record Review Discussion w/independent historian: Patient Procedures Upper Extremity Splints Upper Extremity Splint: Orthoglass and - (AP splint using 3 inch Ortho-Glass, precut 12 inches) Splint Fabrication: Fabricated Location: Left Discharge Plan Triage Chief Complaint: Upper Extremity Injury ED Provider: Alton Machuca Dx/Rx/DC Orders Clinical Impression: Closed fracture of distal end of left radius, Fracture of ulnar styloid Instructions: ED Colles Fracture No Reduction ... Prescriptions: New oxycodone 5 mg tablet 5 mg PO Q6H PRN (Reason: pain) 3 Days Qty: 12 0RF No Action levothyroxine 75 MCG tablet 75 mcg PO QHS lisinopril 10 MG tablet 10 mg PO QHS Patient Comments: atenolol 50 MG tablet 50 mg PO DAILY Patient Comments: hydrocodone-acetaminophen [[place]] 1 EACH tablet 1 ea PO Q4H PRN PRN (Reason: Pain) Qty: 20 0RF fluticasone propionate 1 SPRAY spray,suspension 1 spray NASAL DAILY PRN (Reason: Nasal Congestion) conj estrog-medroxyprogest barb [Prempro] 1 EACH tablet 1 ea PO Q5D cholecalciferol (vitamin D3) [Vitamin D3] 2,000 UNIT capsule 2,000 unit PO DAILY Primary Care Provider: Joi Sheppard Referrals: Noel Bee DO [Non-Staff, Family Practice] Corby Juárez MD [Med Staff - Active Staff, Orthopedics] - 3-5 Days Activity Restrictions/Additional Instructions: Do not get splint wet. Follow-up with orthopedics within the next week. Call tomorrow for an appointment to be seen. Continue ice and elevation of your left wrist when possible. Return with new or worsening symptoms. You may take extra strength Tylenol. Take oxycodone as needed for breakthrough pain. Print Language: Tongan Disposition Disposition: Home, Self Care Discharge Date/Time: 12/28/24 15:16
--- OUTSIDE RECORDS SUMMARY | 2024-12-28 13:17 | XMS RPT_ITS | CCD ---
Author Organization [facility] Care Team Providers Care Television Engineer Name Role Phone SUSAN BEE DO Primary Care Physician [phone] LIOR [facility] Attending Unavailab SUSAN Castellanos DO Primary Care Unavailable SUSAN BEE DO Attending Unavailable SUSAN BEE DO Primary Care Unavailable SUSAN BEE DO Attending Unavailable SUSAN BEE DO Primary Care Unavailable SUSAN BEE DO Primary Care Physician [phone] Dr. Susan Bee DO Primary Care Provider [phone] Dr. Susan Bee DO Attending Provider Dr. Susan Bee DO Referring Provider Susan Bee Referring Unavailable Susan Bee Primary Care Unavailable Jayy Anderson Attending Unavailable Susan Bee Consulting Unavailable Sandra Calabrese Attending Unavailable Sandra Calabrese Referring Unavailable Susan Bee Primary Care Unavailable Susan Bee Referring Unavailable Susan Bee Primary Care Unavailable Susan Bee Attending Unavailable Susan Bee Primary Care Unavailable Jayy Anderson Attending Unavailable Susan Bee Referring Unavailable DR SURI DANG DO Primary Care Physician [phone] DR SURI DANG DO Primary Care Unavailable DR SURI DANG DO Attending Unavailable SUSAN BEE DO Primary Care Unavailable SUSAN BEE DO Attending Unavailable SUSAN BEE DO Primary Care Unavailable SUSAN BEE DO Attending Unavailable Allergies Allergy Classification Reported Allergen(s) Allergy Type Date of Onset Reaction(s) Facility (7 sources) cefprozil; Translations: [cefprozil] Drug Allergy Weal (disorder) [facility] (7 sources) hydroCHLOROthiaz chencho; Translations: [hydrochlorothia zide] Drug Allergy Weal (disorder) [facility] (7 sources) Risedronate; Translations: [risedronate] Drug Allergy Abdominal pain (finding) [facility] (3 sources) Merthiolate-non- codified Drug allergy Swelling (morphologic abnormality) [facility] Medications Current Medications Medication Drug Class(es) Dates Sig (Normalized) Sig (Original) acetaminophen 325 mg / HYDROcodone bitartrate 5 mg oral tablet (3 sources) Opioid Agonist Start: 01-13-2018 Hydrocodone-Aceta minophen ([place] 5-325 Tablet) 1 EACH tablet Active 1 NMA PO EVERY 4 HOURS NEEDED as needed for Pain January 13, 2018 5:27pm atenolol 25 mg oral tablet (6 sources) beta-Adrenergic Zak Start: 10-18-2022 End: 10-13-2023 take 0.5 tablet by mouth once daily at bedtime atenolol 25 mg oral tablet 0.5 tab, Oral, qHS, # 45 tab(s), 3 Refill(s), Pharmacy: [facility]/pharmacy #[id number], 161, cm, 10/18/22 14:45:00 EDT, Height, kg, 10/18/22 14:45:00 EDT, Dosing Weight Start Date: 10/18/22 Stop Date: 10/13/23 Status: Ordered Start: 05-11-2016 End: 10-07-2022 take 1 tablet by mouth once daily Atenolol 50 MG table t Active 50 mg PO DAILY May 11, 2016 12:00am calcium carbonate 1500 mg oral tablet (1 source) Start: 02-17-2019 calcium (as carbonate) 600 mg oral tablet Dose : 1,200 mg = 2 tab(s), Oral, qDay, 0 Refill(s) Start Date: 02/17/19 Status: Ordered cholecalciferol 0.05 mg oral capsule (3 sources) Vitamin D Start: 01-16-2018 take 1 capsule by mouth once daily Cholecalciferol (Vitamin D3) (Vitamin D3) 2,000 UNIT capsule Active 2000 U PO DAILY January 16, 2018 1:00am doxycycline hyclate 100 mg oral capsule (1 source) Tetracycline-class Drug Start: 08-06-2023 End: 08-13-2023 doxycycline hyclate 100 mg oral capsule Dose : 100 mg = 1 cap(s), Oral, BID, X 7 day(s), # 14 cap(s), 0 Refill(s), 08/13/23 12:23:00 PM EDT, Pharmacy: [facility]/pharmacy #[id number], Acute rhinosinusitis, 162.8, cm, 08/06/23 11:43:00 EDT, Height, 60.6, kg, 08/06/23 11:43:00 EDT, Dosing Weight Start Date: 08/06/23 Stop Date: 08/13/23 Status: Ordered estrogens, conjugated (senior care) 0.3 mg / medroxyPROGESTERone acetate 1.5 mg oral tablet (3 sources) Progestin, Estrogen Start: 01-16-2018 Conj Estrog-Medroxyproge [facility] (Prempro 0.3 Mg-1.5 Mg Tablet) 1 EACH tablet Active 1 NMA PO Q5D January 16, 2018 1:00am fluticasone propionate 0.05 mg/actuat metered dose nasal spray (10 sources) Corticosteroid Start: 09-07-2018 take 1 dose nasal route twice daily Flonase 50 mcg/inh nasal spray Dose = 1 spray(s), Nostril, each, BID, OTC, 0 Refill(s) Start Date: 09/07/18 Status: Ordered Medication Dispense Status: Completed Total Allowed Fills: 1 Fills Dispensed: 0 Start: 01-16-2018 Fluticasone Pr opionate 1 SPRAY spray,suspension Active 1 NMA NASAL DAILY as needed for Nasal Congestion January 16, 2018 1:00am Start: 01-16-2018 Fluticasone Pr opionate Active 1 SPRAY NASAL DAILY January 16, 2018 12:00am levothyroxine sodium 0.075 mg oral tablet (10 sources) l-Thyroxine Start: 12-04-2024 End: 11-29-2025 Synthroid 75 mcg (0.075 mg) oral tablet Dose : 75 mcg = 1 tab(s), Oral, qDay, # 90 tab(s), 3 Refill(s), Pharmacy: [facility]/pharmacy #[id number], 161, cm, 12/04/24 7:54:00 EDT, Height, kg, 12/04/24 7:54:00 EDT, Dosing Weight Start Date: 12/04/24 Stop Date: 11/29/25 Status: Ordered Medication Dispense Status: Completed Quantity: 90.0 Unit: tab(s) Total Allowed Fills: 4 Fills Dispensed: 0 Start: 12-04-2023 End: 11-28-2024 Synthroid 75 mcg (0.075 mg) oral tablet Dose : 75 mcg = 1 tab(s), Oral, qDay, # 90 tab(s), 3 Refill(s), [id number] 161, cm, 12/04/23 12:58:00 EDT, Height, kg, 12/04/23 12:58:00 EDT, Dosing Weight Start Date: 12/04/23 Stop Date: 11/28/24 Status: Ordered Quantity: 90.0 Unit: tab(s) Repeat number: 4 Start: 10-12-2021 End: 08-30-2023 Synthroid 75 mcg (0.075 mg) oral tablet Dose : 75 mcg = 1 tab(s), Oral, qDay, # 90 tab(s), 3 Refill(s), [id number], 161, cm, 09/04/22 9:32:00 EDT, Height, kg, 09/04/22 9:32:00 EDT, Dosing Weight Start Date: 09/04/22 Stop Date: 08/30/23 Status: Ordered Start: 05-11-2016 take 1 tablet by shaq th at bedtime Levothyroxine 75 MCG tablet Active 75 ug PO AT BEDTIME May 11, 2016 12:00am lisinopril 10 mg oral tablet (10 sources) Angiotensin Converting Enzyme Inhibitor Start: 12-04-2024 End: 11-29-2025 lisinopril 10 mg oral tablet Dose : 10 mg = 1 tab(s), Oral, qDay, # 90 tab(s), 3 Refill(s), Pharmacy: [facility]/pharmacy #[id number], 161, cm, 12/04/24 7:54:00 EDT, Height, kg, 12/04/24 7:54:00 EDT, Dosing Weight Start Date: 12/04/24 Stop Date: 11/29/25 Status: Ordered Medication Dispense Status: Completed Quantity: 90.0 Unit: tab(s) Total Allowed Fills: 4 Fills Dispensed: 0 Start: 05-11-2016 End: 11-28-2024 lisinopril 10 mg oral tablet Dose : 10 mg = 1 tab(s), Oral, qDay, # 90 tab(s), 3 Refill(s), Pharmacy: [facility]/pharmacy #[id number], 161, cm, 12/04/23 12:58:00 EDT, Height, kg, 12/04/23 12:58:00 EDT, Dosing Weight Start Date: 12/04/23 Stop Date: 11/28/24 Status: Ordered Quantity: 90.0 Unit: tab(s) Repeat number: 4 Multivitamin preparation (6 sources) Start: 07-11-2022 take 1 tablet by mouth once daily Multivitamin Dose = 1 tab(s), Oral, Daily, 0 Refill(s) Start Date: 07/11/22 Status: Ordered Medication Dispense Status: Completed Total Allowed Fills: 1 Fills Dispensed: 0 Start: 07-11-2022 take 1 tablet by shaq th once daily Multivitamin Dose = 1 tab(s), Oral, Daily, 0 Refill(s) Start Date: 07/11/22 Status: Ordered Repeat number: 1 Start: 07-11-2022 take 1 tablet by shaq th once daily Multivitamin Dose = 1 tab(s), Oral, Daily, 0 Refill(s) Start Date: 07/11/22 Status: Ordered triamcinolone acetonide 1 mg/ml topical cream (1 source) Corticosteroid Start: 08-06-2023 End: 08-20-2023 triamcinolone 0.1% topical cream Apply 1 natanael, Topical, BID, -apply a thin film -to affected area -do not apply to face, X 14 day(s), # 60 gram(s), 0 Refill(s), Pharmacy: [facility]/pharmacy #[id number], Cream, 162.8, cm, 08/06/23 11:43:00 EDT, Height, 60.6, kg, 08/06/23 11:43:00 EDT, Dosing Weight Start Date: 08/06/23 Stop Date: 08/20/23 Status: Ordered Vitamin D3 (1 source) Start: 02-17-2019 Vitamin D3 Dos e : 2,000 unit(s) = 1 tab(s), Oral, Daily, # 60 tab(s), 0 Refill(s) Start Date: 02/17/19 Status: Ordered Problems Problem Classification Problem Date Documented Date Episodic/Chronic Conditions associated with dizziness or vertigo (3 sources) Dizziness; Translations: [Lightheadedness] 07-11-2022 Episodic Coronary atherosclerosis and other heart disease (1 source) Coronary arteriosclerosis 12-04-2024 Chronic Disorders of lipid metabolism (7 sources) Mixed hyperlipidemia 08-18-2019 Chronic Essential hypertension (10 sources) Benign essential hypertension; Translations: [Hypertensive disorder] 10-15-2018 Chronic Nutritional deficiencies (7 sources) Vitamin D deficiency 08-18-2019 Chronic Osteoporosis (7 sources) Osteoporosis 08-18-2019 Chronic Other screening for suspected conditions (not mental disorders or infectious disease) (5 sources) Stool DNA-based colorectal cancer screening positive; Translations: [Encounter for screening for cardiovascular disorders] Onset: 01-14-2024 06-17-2024 Episodic Other upper respiratory disease (6 sources) Seasonal allergy 07-11-2022 Chronic Residual codes; unclassified (5 sources) Memory impairment 02-20-2023 Episodic Residual codes; unclassified (3 sources) Family history of cardiac disorder 06-03-2024 Episodic Thyroid disorders (10 sources) Hypothyroidism; Translations: [Hypothyroidism, unspecified] 08-18-2019 Chronic Unclassified (14 sources) Patient encounter status 02-17-2019 Viral infection (1 source) Herpes zoster 05-23-2023 Episodic Results Test Name Value Interpretation Reference Range Facility .Auto Diffon 12-05-2024 Basophil, Absolute 0.0 10 3/mcL Normal 0.0-0.3 [facility] Comment on above: Performed By: #### G FR, LIPID, CMP, ADIFF, FT4, CBC, TSH, VIDH, FT3, ANEU #### [address] [place], [place] [address] Basophils/100 WBC (Bld) 0.7 % Normal 0.0-2.5 [facility] Comment on above: Performed By: #### G FR, LIPID, CMP, ADIFF, FT4, CBC, TSH, VIDH, FT3, ANEU #### [address] [address] Eosinophil, Absolute 0.4 10 3/mcL Normal 0.0-0.7 [facility] Comment on above: Performed By: #### G FR, LIPID, CMP, ADIFF, FT4, CBC, TSH, VIDH, FT3, ANEU #### [address] [address] Eosinophils/100 WBC (Bld) 8.1 % High 0.0-6.0 [facility] Comment on above: Performed By: #### G FR, LIPID, CMP, ADIFF, FT4, CBC, TSH, VIDH, FT3, ANEU #### [address] [address] Lymphocyte, Absolute 2.1 10 3/mcL Normal 0.9-4.3 [facility] Comment on above: Performed By: #### G FR, LIPID, CMP, ADIFF, FT4, CBC, TSH, VIDH, FT3, ANEU #### [address] [address] Lymphocytes/100 WBC (Bld) 39.4 % Normal 20.0-40.0 [facility] Comment on above: Performed By: #### G FR, LIPID, CMP, ADIFF, FT4, CBC, TSH, VIDH, FT3, ANEU #### [address] [address] Monocyte, Absolute 0.4 10 3/mcL Normal 0.1-1.4 [facility] Comment on above: Performed By: #### G FR, LIPID, CMP, ADIFF, FT4, CBC, TSH, VIDH, FT3, ANEU #### [address] [address] Monocytes/100 WBC (Bld) 8.5 % Normal 2.0-13.0 [facility] Comment on above: Performed By: #### G FR, LIPID, CMP, ADIFF, FT4, CBC, TSH, VIDH, FT3, ANEU #### [address] [address] Neutrophils/100 WBC (Bld) 43.3 % Low 50.0-75.0 [facility] Comment on above: Performed By: #### G FR, LIPID, CMP, ADIFF, FT4, CBC, TSH, VIDH, FT3, ANEU #### [address] [place], [place] [address] .GFRon 12-05-2024 Estimated Glomerular Filtration Rate 97 ml/min/1.73sqm Normal [facility] Comment on above: Result Comment: Stages of Chronic Kidney Disease (CKD) Stage Description eGFR(ml/min/1.73 sq.m.) CKD 1 Normal kidney function or >=90 normal kindney function with possible kidney damage (ex. Proteinuria) CKD 2 Kidney damage with mild loss 60-89 of kidney function CKD 3a Mild to moderate loss of kidney 45-59 function CKD 3b Moderate to severe loss of 30-44 of kindey function CKD 4 Severe loss of kidney function 15-29 CKD 5 Kidney failure <15 Note: (go live 2024) the eGFR calculation was updated to the 2020 CKD-EPI creatinine equation without a race factor to calculate the eGFR results. Performed By: #### V IDH, FT4, GFR, LIPID, CMP, FT3, TSH #### [address] [address] .NEUABSon 12-05-2024 Neutrophil, Absolute 2.3 10 3/mcL Normal 2.3-8.1 [facility] Comment on above: Performed By: #### V IDH, FT4, GFR, LIPID, CMP, FT3, TSH #### [address] [address] CBCon 12-05-2024 Erythrocyte distribution width (RBC) [Ratio] 13.5 % Normal 11.5-15.5 [facility] Comment on above: Performed By: #### G FR, LIPID, CMP, ADIFF, FT4, CBC, TSH, VIDH, FT3, ANEU #### [address] [place], [place] [address] Hematocrit (Bld) [Volume fraction] 39.4 % Normal 34.0-46.0 [facility] Comment on above: Performed By: #### G FR, LIPID, CMP, ADIFF, FT4, CBC, TSH, VIDH, FT3, ANEU #### [place] [address] Hgb 13.2 G/dL Normal 12.0-16.0 [facility] Comment on above: Performed By: #### G FR, LIPID, CMP, ADIFF, FT4, CBC, TSH, VIDH, FT3, ANEU #### [place] [address] MCH (RBC) [Entitic mass] 32.0 pg Normal 27.0-33.0 [facility] Comment on above: Performed By: #### G FR, LIPID, CMP, ADIFF, FT4, CBC, TSH, VIDH, FT3, ANEU #### [place] [address] MCHC 33.5 G/dL Normal 32.0-36.0 [facility] Comment on above: Performed By: #### G FR, LIPID, CMP, ADIFF, FT4, CBC, TSH, VIDH, FT3, ANEU #### [place] [address] MCV (RBC) [Entitic vol] 95.7 fL Normal 80.0-99.0 [facility] Comment on above: Performed By: #### G FR, LIPID, CMP, ADIFF, FT4, CBC, TSH, VIDH, FT3, ANEU #### [place] [address] Platelet 236 10 3/mcL Normal 150-450 [facility] Comment on above: Performed By: #### G FR, LIPID, CMP, ADIFF, FT4, CBC, TSH, VIDH, FT3, ANEU #### [place] [address] Platelet mean volume (Bld) [Entitic vol] 9.1 fL Normal 6.6-10.5 [facility] Comment on above: Performed By: #### G FR, LIPID, CMP, ADIFF, FT4, CBC, TSH, VIDH, FT3, ANEU #### [address] [address] RBC 4.12 10 6/mcL Normal 4.10-5.30 [facility] Comment on above: Performed By: #### G FR, LIPID, CMP, ADIFF, FT4, CBC, TSH, VIDH, FT3, ANEU #### [address] [address] WBC 5.3 10 3/mcL Normal 4.5-10.8 [facility] Comment on above: Performed By: #### G FR, LIPID, CMP, ADIFF, FT4, CBC, TSH, VIDH, FT3, ANEU #### [address] [address] CMPon 12-05-2024 Albumin Level 3.8 G/dL Normal 3.4-4.8 [facility] Comment on above: Performed By: #### V IDH, FT4, GFR, LIPID, CMP, FT3, TSH #### [address] [address] Albumin/Globulin [Mass ratio] 1.0 {ratio} Low 1.1-2.5 [facility] Comment on above: Performed By: #### V IDH, FT4, GFR, LIPID, CMP, FT3, TSH #### [address] [address] ALP [Catalytic activity/Vol] 58 U/L Normal 40-135 [facility] Comment on above: Performed By: #### V IDH, FT4, GFR, LIPID, CMP, FT3, TSH #### [address] [address] ALT [Catalytic activity/Vol] 21 U/L Normal 14-59 [facility] Comment on above: Performed By: #### V IDH, FT4, GFR, LIPID, CMP, FT3, TSH #### [address] [address] AST [Catalytic activity/Vol] 20 U/L Normal 10-40 [facility] Comment on above: Performed By: #### V IDH, FT4, GFR, LIPID, CMP, FT3, TSH #### [address] [address] Bili Total 1.6 mg/dL High 0.2-1.0 [facility] Comment on above: Result Comment: Use of this assay is not recommended for patients undergoing treatment with eltrombopag due to the potential for falsely elevated results. Performed By: #### V IDH, FT4, GFR, LIPID, CMP, FT3, TSH #### [place] [address] BUN/Creatinine Ratio 18 ratio Normal 7-27 [facility] Comment on above: Performed By: #### V IDH, FT4, GFR, LIPID, CMP, FT3, TSH #### [place] [id number] Calcium [Mass/Vol] 9.4 mg/dL Normal 8.4-10.[address] [facility] Comment on above: Performed By: #### V IDH, FT4, GFR, LIPID, CMP, FT3, TSH #### [place] [address] Chloride [Moles/Vol] 99 mmol/L Normal 98-107 [facility] Comment on above: Performed By: #### V IDH, FT4, GFR, LIPID, CMP, FT3, TSH #### [place] [address] CO2 [Moles/Vol] 32 mmol/L High 23-31 [facility] Comment on above: Performed By: #### V IDH, FT4, GFR, LIPID, CMP, FT3, TSH #### [place] [address] Creatinine [Mass/Vol] 0.57 mg/dL Normal 0.51-0.95 [facility] Comment on above: Performed By: #### V IDH, FT4, GFR, LIPID, CMP, FT3, TSH #### [address] [address] Electrolyte Balance 7.0 mEq/L Normal 4.0-15.0 [facility] Comment on above: Performed By: #### V IDH, FT4, GFR, LIPID, CMP, FT3, TSH #### [address] [address] Globulin 3.9 G/dL Normal 2.7-4.4 [facility] Comment on above: Performed By: #### V IDH, FT4, GFR, LIPID, CMP, FT3, TSH #### [place] [address] Glucose [Mass/Vol] 100 mg/dL Normal 83-[address] [facility] Comment on above: Performed By: #### V IDH, FT4, GFR, LIPID, CMP, FT3, TSH #### [address] [address] Potassium [Moles/Vol] 4.1 mmol/L Normal 3.5-5.1 [facility] Comment on above: Performed By: #### V IDH, FT4, GFR, LIPID, CMP, FT3, TSH #### [place] [address] Sodium [Moles/Vol] 138 mmol/L Normal 136-[address] [facility] Comment on above: Performed By: #### V IDH, FT4, GFR, LIPID, CMP, FT3, TSH #### [place] [address] Total Protein 7.7 G/dL Normal 6.4-8.2 [facility] Comment on above: Performed By: #### V IDH, FT4, GFR, LIPID, CMP, FT3, TSH #### [place] [address] Urea nitrogen [Mass/Vol] 10 mg/dL Normal 7-18 [facility] Comment on above: Performed By: #### V IDH, FT4, GFR, LIPID, CMP, FT3, TSH #### [place] [id number] FT3on 10-24-2025 Free T3 [Mass/Vol] 2.37 pg/mL Normal 2.30-4.[address] [facility] Comment on above: Performed By: #### V IDH, FT4, GFR, LIPID, CMP, FT3, TSH #### [address] [place], [place] [address] FT4on 12-05-2024 Free T4 [Mass/Vol] 1.20 ng/dL Normal 0.76-1.[address] [facility] Comment on above: Performed By: #### V IDH, FT4, GFR, LIPID, CMP, FT3, TSH #### [address] [address] LABORATORYOrdered By: SYSTEM SYSTEM on 12-05-2024 25-hydroxyvitamin D3 [Mass/Vol] 51.5 ng/mL Invalid Interpretation Code AO ADM SS Comment on above: Interpretive Data: I nterpretive Values Based on Total 25(OH) Vitamin D: Deficient <20 ng/mL Insufficient 20 - <30 ng/mL Sufficient 30-100 ng/mL Albumin BCP dye [Mass/Vol] 3.8 G/dL Normal 3.4 - 4.8 G/dL AO ADM SS Albumin/Globulin [Mass ratio] 1.0 {ratio} Low 1.1 - 2.5 ratio AO ADM SS ALP [Catalytic activity/Vol] 58 U/L Normal 40 - 135 U/L AO ADM SS ALT With P-5'-P [Catalytic activity/Vol] 21 U/L Normal 14 - 59 U/L AO ADM SS AST With P-5'-P [Catalytic activity/Vol] 20 U/L Normal 10 - 40 U/L AO ADM SS Basophils (Bld) [#/Vol] 0.0 103/mcL Normal 0.0 - 0.3 10^3/mcL AO Workflow SS Basophils/100 WBC (Bld) 0.7 % Normal 0.0 - 2.5 % AO Workflow SS Bilirubin [Mass/Vol] 1.6 mg/dL High 0.2 - 1 .0 mg/dL AO ADM SS Comment on above: Interpretive Data: U se of this assay is not recommended for patients undergoing treatment with eltrombopag due to the potential for falsely elevated results. Calcium [Mass/Vol] 9.4 mg/dL Normal 8.4 - 10. 2 mg/dL AO ADM SS Chloride [Moles/Vol] 99 mmol/L Normal 98 - 10 7 mmol/L AO ADM SS CO2 [Moles/Vol] 32 mmol/L High 23 - 31 mmol/L AO ADM SS Creatinine [Mass/Vol] 0.57 mg/dL Normal 0.51 - 0.95 mg/dL AO ADM SS Electrolyte Balance 7.0 mEq/L Normal 4.0 - 15 .0 mEq/L AO ADM SS Eosinophil, Absolute 0.4 103/mcL Normal 0.0 - 0 .7 10^3/mcL AO Workflow SS Eosinophils/100 WBC (Bld) 8.1 % High 0.0 - 6.0 % AO Workflow SS Erythrocyte distribution width (RBC) [Ratio] 13.5 % Normal 11.5 - 15.5 % AO Workflow SS Free T3 [Mass/Vol] 2.37 pg/mL Normal 2.30 - 4. 00 pg/mL AO ADM SS Free T4 [Mass/Vol] 1.20 ng/dL Normal 0.76 - 1. 46 ng/dL AO ADM SS Globulin 3.9 G/dL Normal 2.7 - 4.4 G/dL AO ADM SS GLOMERULAR FILTRATION RATE/1.73 SQ M.PREDICTED:ARVRAT:PT :SER/PLAS/BLD:QN:CREA TININE-BASED FORMULA (CKD-EPI 2020) 97 ml/min/1.73sqm Invalid Interpretation Code AO Chemistry S Comment on above: Interpretive Data: Stages of Chronic Kidney Disease (CKD) Stage Description eGFR(ml/min/1.73 sq.m.) CKD 1 Normal kidney function or >=90 normal kindney function with possible kidney damage (ex. Proteinuria) CKD 2 Kidney damage with mild loss 60-89 of kidney function CKD 3a Mild to moderate loss of kidney 45-59 function CKD 3b Moderate to severe loss of 30-44 of kindey function CKD 4 Severe loss of kidney function 15-29 CKD 5 Kidney failure <15 Note: (go live 2024) the eGFR calculation was updated to the 2020 CKD-EPI creatinine equation without a race factor to calculate the eGFR results. Glucose [Mass/Vol] 100 mg/dL Normal 83 - 110 mg/dL AO ADM SS Hematocrit (Bld) [Volume fraction] 39.4 % Normal 34.0 - 46.0 % AO Workflow SS Hemoglobin (Bld) [Mass/Vol] 13.2 G/dL Normal 12.0 - 16.0 G/dL AO Workflow SS Lymphocytes (Bld) [#/Vol] 2.1 103/mcL Normal 0.9 - 4.3 10^3/mcL AO Workflow SS Lymphocytes/100 WBC (Bld) 39.4 % Normal 20.0 - 40.0 % AO Workflow SS MCH (RBC) [Entitic mass] 32.0 pg Normal 27.0 - 33.0 pg AO Workflow SS MCHC 33.5 G/dL Normal 32.0 - 36.0 G/dL AO Workflow SS MCV (RBC) [Entitic vol] 95.7 fL Normal 80.0 - 99.0 fL AO Workflow SS Monocytes (Bld) [#/Vol] 0.4 103/mcL Normal 0.1 - 1.4 10^3/mcL AO Workflow SS Monocytes/100 WBC (Bld) 8.5 % Normal 2.0 - 13.0 % AO Workflow SS Neutrophils (Bld) [#/Vol] 2.3 103/mcL Normal 2.3 - 8.1 10^3/mcL AO Workflow SS Neutrophils/100 WBC (Bld) 43.3 % Low 50.0 - 75.0 % AO Workflow SS Platelet mean volume (Bld) [Entitic vol] 9.1 fL Normal 6.6 - 10.5 fL AO Workflow SS Platelets (Bld) [#/Vol] 236 103/mcL Normal 150 - 450 10^3/mcL AO Workflow SS Potassium [Moles/Vol] 4.1 mmol/L Normal 3.5 - 5.1 mmol/L AO ADM SS Protein [Mass/Vol] 7.7 G/dL Normal 6.4 - 8.2 G/dL AO ADM SS RBC (Bld) [#/Vol] 4.12 106/mcL Normal 4.10 - 5.3 0 10^6/mcL AO Workflow SS Sodium [Moles/Vol] 138 mmol/L Normal 136 - 145 mmol/L AO ADM SS TSH Qn 2.08 m[IU]/L Normal 0.36 - 3.74 mcIU/mL AO ADM SS Urea nitrogen [Mass/Vol] 10 mg/dL Normal 7 - 18 mg/dL AO ADM SS Urea nitrogen/Creatinine [Mass ratio] 18 ratio Normal 7 - 27 ratio AO ADM SS WBC (Bld) [#/Vol] 5.3 103/mcL Normal 4.5 - 10.8 10^3/mcL AO Workflow SS LABORATORYOrdered By: Dianna Jamison on 12-05-2024 Cholesterol [Mass/Vol] 303 mg/dL High 0 - 200 mg/dL AO ADM SS Comment on above: Interpretive Data: C holesterol Reference Interval: Less than 200 Desirable 200-239 Borderline high risk 240 and above High risk Cholesterol in HDL [Mass/Vol] 82 mg/dL High 40 - 60 mg/dL AO ADM SS Cholesterol in LDL [Mass/Vol] 209 mg/dL High 0 - 130 mg/dL AO ADM SS Triglyceride [Mass/Vol] 61 mg/dL Normal 0 - 150 mg/dL AO ADM SS Comment on above: Interpretive Data: T riglyceride Reference Interval: Less than 150 Normal 150-199 Borderline high risk 200-499 High risk 500 or higher Very high risk LIPIDon 12-05-2024 Cholesterol [Mass/Vol] 303 mg/dL High 0-200 [facility] Comment on above: Result Comment: Chol esterol Reference Interval: Less than 200 Desirable 200-239 Borderline high risk 240 and above High risk Performed By: #### V IDH, FT4, GFR, LIPID, CMP, FT3, TSH #### [address] [address] Cholesterol in HDL [Mass/Vol] 82 mg/dL High 40-60 [facility] Comment on above: Performed By: #### V IDH, FT4, GFR, LIPID, CMP, FT3, TSH #### [address] [address] Cholesterol in LDL [Mass/Vol] 209 mg/dL High 0-130 [facility] Comment on above: Performed By: #### V IDH, FT4, GFR, LIPID, CMP, FT3, TSH #### [address] [address] Triglyceride [Mass/Vol] 61 mg/dL Normal 0-150 [facility] Comment on above: Result Comment: Trig lyceride Reference Interval: Less than 150 Normal 150-199 Borderline high risk 200-499 High risk 500 or higher Very high risk Performed By: #### V IDH, FT4, GFR, LIPID, CMP, FT3, TSH #### [address] [place], [place] [address] TSHon 12-05-2024 TSH Qn 2.08 m[IU]/L Normal 0.36-3.74 [facility] Comment on above: Performed By: #### V IDH, FT4, GFR, LIPID, CMP, FT3, TSH #### [address] [place], [place] [address] VIDHon 12-05-2024 Vit. D 25-Hydroxy 51.5 ng/mL Normal [facility] Comment on above: Result Comment: Inte rpretive Values Based on Total 25(OH) Vitamin D: Deficient <20 ng/mL Insufficient 20 - <30 ng/mL Sufficient 30-100 ng/mL Performed By: #### V IDH, FT4, GFR, LIPID, CMP, FT3, TSH #### [address] [place], [place] [address] Coronary Angiography CTon Coronary Angiography CT [facility] [address] [place] [address] 07/28/24 1825 MR#: [id number] Acct: [id number] Name: MECHELLE ÁLVAREZ Rep #: [id number] : 1955 68 From: Jayy Anderson MD PCP: Dr. Susan Bee, DO Status:[facility] Y Location: CT Calcium Scoring Date of Study:: 07/18/24 Indications Indications: FH Coronary Calcium Scoring: High-resolution Computed Tomographic imaging of the chest was performed on [07/18/24 ], with particular attention paid to the coronary arteries. Images from the examination were analyzed for the presence and extent of coronary artery calcification , using coronary calcium quantification software. The patient tolerated the procedure well and there were no complications. The results of the coronary calcification analysis are provided below. Findings Coronary Artery Left Main (LM): 43 Left Anterior Descending (LAD): 155 Left Circumflex (LCX): 0 Right Coronary Artery (RCA): 0 Total Agatston Score: 198 Percentile Rankin%-75% Calcium Scoring Interpretation: Different methods to categorize the overall amount of coronary plaque. Overall amount CAC SIS Visual of coronary plaque P1 Mild -100 <2 1-2 vessels with mild amount of plaque P2 Moderate 101-300 3-4 1-2 vessels with moderate amount, 3 vessels with mild amount of plaque P3 Severe 301-999 5-7 3 vessels with moderate amount, 1 vessel with severe amount of plaque P4 Extensive >1000 >8 2-3 vessels with severe amount of plaque Calcium Score: Moderate: 1-2 vessels w/moderate amt, 3 vessels w/mild amt of plaque Conclusion: Moderate two-vessel plaquing. 07/28/24 1826 Date Jayy Anderson MD Cosigner Signature (if applicable): Date CC: Dr. Jayy Anderson MD; Dr. Susan Bee DO Signed Normal [facility] Limited Chest CT Cardiac Onl yon 07-18-[address] Cardiac Only [facility] [address] [place] [id number] Cardiac Only MR#: [id number] Acct: [id number] Name: MECHELLE ÁLVAREZ Rep #: [id number] : 1955 F 68 From: Jarod Gonsalez PCP: Dr. Susan Bee DO Status: [facility] CLI Study: Limited Chest CT Cardiac Only Date of Exam: Exam# [id number] Ordering Dr: Susan Bee DO PROCEDURE: LIMITED CHEST CT CARDIAC ONLY REASON FOR EXAM: SCREENING FOR HEART DISEASE TECHNIQUE: CT for coronary artery calcium scoring. One or more dose reduction techniques were used (e.g., Automated exposure control, adjustment of the mA and/or kV according to patient size, use of iterative reconstruction technique). COMPARISON: None. CT/Limited Chest CT Cardiac Only IMPRESSION: Limited imaging of the lungs demonstrates no acute process. No pleural effusion or pneumothorax is seen in visualized areas. No adenopathy is noted. The visualized upper abdomen demonstrates no significant abnormality. Reading Location: [id number] CC: Dr. Susan Bee, Tracer Bullet Section Supervisor: Signed Normal [facility] LABORATORYOrdered By: Dario Harris on 06-24-2024 Appearance (U) Clear (06/24/24 10:01 AM) Normal AO Auto Urine SS Bilirubin Ql (U) Negative (06/24/24 10:01 AM) Normal AO Auto Urine SS Color (U) Yellow (06/24/24 10:01 AM) Normal AO Auto Urine SS Glucose Test strip (U) [Mass/Vol] Negative Normal AO Auto Urine SS Hemoglobin Auto test strip (U) [Mass/Vol] Negative (06/24/24 10:01 AM) Normal AO Auto Urine SS Ketones Ql (U) Negative Normal AO Auto Ur ine SS UA Leuk Est Negative (06/24/24 10:01 AM) Normal AO Auto Urine SS UA Nitrite Negative (06/24/24 10:01 AM) Normal AO Auto Urine SS UA pH 6.0 (06/24/24 10:01 AM) Normal AO Auto Urine SS UA Protein Negative Normal AO Auto Urine SS UA Spec Grav 1.010 *ABN* (06/24/24 10:01 AM) Invalid Interpretation Code AO Auto Urine SS UA Specimen Type Clean Catch (06/24/24 10:01 AM) Normal AO Auto Urine SS UA Urobilinogen 0.2 E.U./dL Normal AO Auto Urine SS LABORATORYOrdered By: SYSTEM SYSTEM on 06-24-2024 Sodium [Moles/Vol] 139 mmol/L Normal 136 - 145 mmol/L AO ADM SS NAon 06-24-2024 Sodium [Moles/Vol] 139 mmol/L Normal 136-[address] [facility] Comment on above: Performed By: #### N A #### [address] [address] UAon 06-24-2024 Color (U) Yellow Normal [facility] Comment on above: Performed By: #### V IDH, FT4, GFR, LIPID, CMP, FT3, TSH #### [address] [address] Glucose (U) [Mass/Vol] Negative Normal Negative [facility] Comment on above: Performed By: #### V IDH, FT4, GFR, LIPID, CMP, FT3, TSH #### [address] [address] Ketones Ql (U) Negative Normal Negative [facility] Comment on above: Performed By: #### V IDH, FT4, GFR, LIPID, CMP, FT3, TSH #### [place] [address] UA Appear Clear Normal Clear [facility] Comment on above: Performed By: #### V IDH, FT4, GFR, LIPID, CMP, FT3, TSH #### [address] [place] [address] UA Blood Negative Normal Negative [facility] Comment on above: Performed By: #### V IDH, FT4, GFR, LIPID, CMP, FT3, TSH #### [address] [address] UA Leuk Est Negative Normal Negative [facility] Comment on above: Performed By: #### V IDH, FT4, GFR, LIPID, CMP, FT3, TSH #### [address] [place] [address] UA Nitrite Negative Normal Negative [facility] Comment on above: Performed By: #### V IDH, FT4, GFR, LIPID, CMP, FT3, TSH #### [address] [address] UA pH 6.0 Normal 5.0 - 8.0 [facility] Comment on above: Performed By: #### V IDH, FT4, GFR, LIPID, CMP, FT3, TSH #### [address] [address] UA Protein Negative Normal Negative [facility] Comment on above: Performed By: #### V IDH, FT4, GFR, LIPID, CMP, FT3, TSH #### [address] [address] UA Spec Grav 1.010 Abnormal 1.015-1.025 [facility] Comment on above: Performed By: #### V IDH, FT4, GFR, LIPID, CMP, FT3, TSH #### [address] [place], [place] [address] UA Specimen Type Clean Catch Normal [facility] Comment on above: Performed By: #### V IDH, FT4, GFR, LIPID, CMP, FT3, TSH #### [address] [address] UA Urobilinogen 0.2 E.U./dL Normal 0.2-1.0 [facility] Comment on above: Performed By: #### V IDH, FT4, GFR, LIPID, CMP, FT3, TSH #### [place] [id number] Urobilinogen (U) [Mass/Vol] Negative Normal Negative [facility] Comment on above: Performed By: #### V IDH, FT4, GFR, LIPID, CMP, FT3, TSH #### [address] [address] .GFRon 06-06-2024 Estimated Glomerular Filtration Rate 99 ml/min/1.73sqm Normal [facility] Comment on above: Result Comment: Stages of Chronic Kidney Disease (CKD) Stage Description eGFR(ml/min/1.73 sq.m.) CKD 1 Normal kidney function or >=90 normal kindney function with possible kidney damage (ex. Proteinuria) CKD 2 Kidney damage with mild loss 60-89 of kidney function CKD 3a Mild to moderate loss of kidney 45-59 function CKD 3b Moderate to severe loss of 30-44 of kindey function CKD 4 Severe loss of kidney function 15-29 CKD 5 Kidney failure <15 Note: (go live 2024) the eGFR calculation was updated to the 2020 CKD-EPI creatinine equation without a race factor to calculate the eGFR results. Performed By: #### V IDH, FT4, GFR, LIPID, CMP, FT3, TSH #### [address] [address] CMPon 06-06-2024 Albumin Level 3.9 G/dL Normal 3.4-4.8 [facility] Comment on above: Performed By: #### V IDH, FT4, GFR, LIPID, CMP, FT3, TSH #### [place] [id number] Albumin/Globulin [Mass ratio] 1.0 {ratio} Low 1.1-2.5 [facility] Comment on above: Performed By: #### V IDH, FT4, GFR, LIPID, CMP, FT3, TSH #### [place] [address] ALP [Catalytic activity/Vol] 70 U/L Normal 40-135 [facility] Comment on above: Performed By: #### V IDH, FT4, GFR, LIPID, CMP, FT3, TSH #### [place] [id number] ALT [Catalytic activity/Vol] 22 U/L Normal 14-59 [facility] Comment on above: Performed By: #### V IDH, FT4, GFR, LIPID, CMP, FT3, TSH #### [place] [id number] AST [Catalytic activity/Vol] 14 U/L Normal 10-40 [facility] Comment on above: Performed By: #### V IDH, FT4, GFR, LIPID, CMP, FT3, TSH #### [address] [address] Bili Total 1.3 mg/dL High 0.2-1.0 [facility] Comment on above: Result Comment: Use of this assay is not recommended for patients undergoing treatment with eltrombopag due to the potential for falsely elevated results. Performed By: #### V IDH, FT4, GFR, LIPID, CMP, FT3, TSH #### [place] [id number] BUN/Creatinine Ratio 13 ratio Normal 7-27 [facility] Comment on above: Performed By: #### V IDH, FT4, GFR, LIPID, CMP, FT3, TSH #### [place] [address] Calcium [Mass/Vol] 9.0 mg/dL Normal 8.4-10.[address] [facility] Comment on above: Performed By: #### V IDH, FT4, GFR, LIPID, CMP, FT3, TSH #### [place] [address] Chloride [Moles/Vol] 95 mmol/L Low 98-107 [facility] Comment on above: Performed By: #### V IDH, FT4, GFR, LIPID, CMP, FT3, TSH #### [place] [address] CO2 [Moles/Vol] 31 mmol/L Normal 23-31 [facility] Comment on above: Performed By: #### V IDH, FT4, GFR, LIPID, CMP, FT3, TSH #### [place] [address] Creatinine [Mass/Vol] 0.54 mg/dL Normal 0.51-0.95 [facility] Comment on above: Performed By: #### V IDH, FT4, GFR, LIPID, CMP, FT3, TSH #### [place] [address] Electrolyte Balance 4.0 mEq/L Normal 4.0-15.0 [facility] Comment on above: Performed By: #### V IDH, FT4, GFR, LIPID, CMP, FT3, TSH #### [place] [address] Globulin 3.8 G/dL Normal 2.7-4.4 [facility] Comment on above: Performed By: #### V IDH, FT4, GFR, LIPID, CMP, FT3, TSH #### [place] [address] Glucose [Mass/Vol] 90 mg/dL Normal 83-[address] [facility] Comment on above: Performed By: #### V IDH, FT4, GFR, LIPID, CMP, FT3, TSH #### [place] [address] Potassium [Moles/Vol] 3.9 mmol/L Normal 3.5-5.1 [facility] Comment on above: Performed By: #### V IDH, FT4, GFR, LIPID, CMP, FT3, TSH #### [place] [address] Sodium [Moles/Vol] 130 mmol/L Low 136-[address] [facility] Comment on above: Performed By: #### V IDH, FT4, GFR, LIPID, CMP, FT3, TSH #### [place] [address] Total Protein 7.7 G/dL Normal 6.4-8.2 [facility] Comment on above: Performed By: #### V IDH, FT4, GFR, LIPID, CMP, FT3, TSH #### [place] [address] Urea nitrogen [Mass/Vol] 7 mg/dL Normal 7-18 [facility] Comment on above: Performed By: #### V IDH, FT4, GFR, LIPID, CMP, FT3, TSH #### [place] [address] FT3on 06-06-2024 Free T3 [Mass/Vol] 2.22 pg/mL Low 2.30-4.[address] [facility] Comment on above: Performed By: #### V IDH, FT4, GFR, LIPID, CMP, FT3, TSH #### [place] [address] FT4on 06-06-2024 Free T4 [Mass/Vol] 1.27 ng/dL Normal 0.76-1.[address] [facility] Comment on above: Performed By: #### V IDH, FT4, GFR, LIPID, CMP, FT3, TSH #### [address] [place] [address] LABORATORYOrdered By: Dianna Jamison on 06-06-2024 Albumin DL <= 20 mg/L (U) [Mass/Vol] 1.6 mg/L Invalid Interpretation Code AO ADM SS Albumin/Creatinine DL <= 20 mg/L (U) [Mass ratio] 10 mg/G Normal 0 - 30 mg/G AO Chemistry S Creatinine (U) [Mass/Vol] 15.9 mg/dL Low 29.0 - 226.0 mg/dL AO ADM SS Cholesterol [Mass/Vol] 251 mg/dL High 0 - 200 mg/dL AO ADM SS Comment on above: Interpretive Data: C holesterol Reference Interval: Less than 200 Desirable 200-239 Borderline high risk 240 and above High risk Cholesterol in HDL [Mass/Vol] 94 mg/dL High 40 - 60 mg/dL AO ADM SS Cholesterol in LDL [Mass/Vol] 149 mg/dL High 0 - 130 mg/dL AO ADM SS Triglyceride [Mass/Vol] 40 mg/dL Normal 0 - 150 mg/dL AO ADM SS Comment on above: Interpretive Data: T riglyceride Reference Interval: Less than 150 Normal 150-199 Borderline high risk 200-499 High risk 500 or higher Very high risk LABORATORYOrdered By: SYSTEM SYSTEM on 06-06-2024 25-hydroxyvitamin D3 [Mass/Vol] 48.1 ng/mL Invalid Interpretation Code AO ADM SS Comment on above: Interpretive Data: I nterpretive Values Based on Total 25(OH) Vitamin D: Deficient <20 ng/mL Insufficient 20 - <30 ng/mL Sufficient 30-100 ng/mL Albumin BCP dye [Mass/Vol] 3.9 G/dL Normal 3.4 - 4.8 G/dL AO ADM SS Albumin/Globulin [Mass ratio] 1.0 {ratio} Low 1.1 - 2.5 ratio AO ADM SS ALP [Catalytic activity/Vol] 70 U/L Normal 40 - 135 U/L AO ADM SS ALT With P-5'-P [Catalytic activity/Vol] 22 U/L Normal 14 - 59 U/L AO ADM SS AST With P-5'-P [Catalytic activity/Vol] 14 U/L Normal 10 - 40 U/L AO ADM SS Bilirubin [Mass/Vol] 1.3 mg/dL High 0.2 - 1 .0 mg/dL AO ADM SS Comment on above: Interpretive Data: U se of this assay is not recommended for patients undergoing treatment with eltrombopag due to the potential for falsely elevated results. Calcium [Mass/Vol] 9.0 mg/dL Normal 8.4 - 10. 2 mg/dL AO ADM SS Chloride [Moles/Vol] 95 mmol/L Low 98 - 10 7 mmol/L AO ADM SS CO2 [Moles/Vol] 31 mmol/L Normal 23 - 31 mmol/L AO ADM SS Creatinine [Mass/Vol] 0.54 mg/dL Normal 0.51 - 0.95 mg/dL AO ADM SS Electrolyte Balance 4.0 mEq/L Normal 4.0 - 15 .0 mEq/L AO ADM SS Estimated Glomerular Filtration Rate 99 ml/min/1.73sqm Invalid Interpretation Code AO Chemistry S Comment on above: Interpretive Data: Stages of Chronic Kidney Disease (CKD) Stage Description eGFR(ml/min/1.73 sq.m.) CKD 1 Normal kidney function or >=90 normal kindney function with possible kidney damage (ex. Proteinuria) CKD 2 Kidney damage with mild loss 60-89 of kidney function CKD 3a Mild to moderate loss of kidney 45-59 function CKD 3b Moderate to severe loss of 30-44 of kindey function CKD 4 Severe loss of kidney function 15-29 CKD 5 Kidney failure <15 Note: (go live 2024) the eGFR calculation was updated to the 2020 CKD-EPI creatinine equation without a race factor to calculate the eGFR results. Free T3 [Mass/Vol] 2.22 pg/mL Low 2.30 - 4. 00 pg/mL AO ADM SS Free T4 [Mass/Vol] 1.27 ng/dL Normal 0.76 - 1. 46 ng/dL AO ADM SS Globulin 3.8 G/dL Normal 2.7 - 4.4 G/dL AO ADM SS Glucose [Mass/Vol] 90 mg/dL Normal 83 - 110 mg/dL AO ADM SS Potassium [Moles/Vol] 3.9 mmol/L Normal 3.5 - 5.1 mmol/L AO ADM SS Protein [Mass/Vol] 7.7 G/dL Normal 6.4 - 8.2 G/dL AO ADM SS Sodium [Moles/Vol] 130 mmol/L Low 136 - 145 mmol/L AO ADM SS TSH Qn 0.89 m[IU]/L Normal 0.36 - 3.74 mcIU/mL AO ADM SS Urea nitrogen [Mass/Vol] 7 mg/dL Normal 7 - 18 mg/dL AO ADM SS Urea nitrogen/Creatinine [Mass ratio] 13 ratio Normal 7 - 27 ratio AO ADM SS LIPIDon 06-06-2024 Cholesterol [Mass/Vol] 251 mg/dL High 0-200 [facility] Comment on above: Result Comment: Chol esterol Reference Interval: Less than 200 Desirable 200-239 Borderline high risk 240 and above High risk Performed By: #### V IDH, FT4, GFR, LIPID, CMP, FT3, TSH #### [address] [address] Cholesterol in HDL [Mass/Vol] 94 mg/dL High 40-60 [facility] Comment on above: Performed By: #### V IDH, FT4, GFR, LIPID, CMP, FT3, TSH #### [address] [address] Cholesterol in LDL [Mass/Vol] 149 mg/dL High 0-130 [facility] Comment on above: Performed By: #### V IDH, FT4, GFR, LIPID, CMP, FT3, TSH #### [address] [address] Triglyceride [Mass/Vol] 40 mg/dL Normal 0-150 [facility] Comment on above: Result Comment: Trig lyceride Reference Interval: Less than 150 Normal 150-199 Borderline high risk 200-499 High risk 500 or higher Very high risk Performed By: #### V IDH, FT4, GFR, LIPID, CMP, FT3, TSH #### [address] [address] MALBRon 06-06-2024 U Creatinine 15.9 mg/dL Low 29.0-226.0 [facility] Comment on above: Performed By: #### V IDH, FT4, GFR, LIPID, CMP, FT3, TSH #### [address] [address] U Microalb 1.6 mg/L Normal [facility] Comment on above: Performed By: #### V IDH, FT4, GFR, LIPID, CMP, FT3, TSH #### [address] [place], [place] [address] U Ratio Alb/Cre 10 mg/G Normal 0-30 [facility] Comment on above: Performed By: #### V IDH, FT4, GFR, LIPID, CMP, FT3, TSH #### [address] [address] TSHon 06-06-2024 TSH Qn 0.89 m[IU]/L Normal 0.36-3.74 [facility] Comment on above: Performed By: #### V IDH, FT4, GFR, LIPID, CMP, FT3, TSH #### [address] [address] VIDHon 06-06-2024 Vit. D 25-Hydroxy 48.1 ng/mL Normal [facility] Comment on above: Result Comment: Inte rpretive Values Based on Total 25(OH) Vitamin D: Deficient <20 ng/mL Insufficient 20 - <30 ng/mL Sufficient 30-100 ng/mL Performed By: #### V IDH, FT4, GFR, LIPID, CMP, FT3, TSH #### [address] [address] SCRN MAMM (CAD)W/GIRISH BILATo n 12-27-2023 SCRN MAMM (CAD)W/GIRISH BILAT [facility] [address] [place] [id number] SCRN MAMM (CAD)W/GIRISH BILAT MR#: [id number] Acct: [id number] Name: MECHELLE ÁLVAREZ Rep #: [id number] : 1955 F 68 From: Tobias ochoa MD PCP: Dr. Susan Bee, DO Status: REG CLI Study: SCRN MAMM (CAD)W/GIRISH BILAT Date of Exam: 12/13 06/05 Exam# [id number] Ordering Dr: Sandra Calabrese MD -[id number] MAMMOGRAPHY - BILATERAL SCREENING REASON FOR EXAM: Female, 68 years old. Routine annual screening examination. PERTINENT HISTORY: Non-contributory. TECHNIQUE: Digital bilateral breast girish (3D mammographic acquisition) in the CC and MLO projections. 2-D mediolateral oblique (MLO) and craniocaudad (CC) views of both breasts were obtained. CAD: Full Field Digital Mammography with Computer Added Detection was performed. COMPARISON: Comparison is made with prior study December 21, 2022 and December 02, 2021. FINDINGS: Breast Composition: There are scattered areas of fibroglandular density. There are no dominant masses or suspicious calcifications. No other significant abnormalities are identified. There has been no significant change since the prior study. BI/SCRN MAMM (CAD)W/GIRISH BILAT IMPRESSION: Stable bilateral screening mammogram. Yearly follow-up mammogram recommended. (A) ASSESSMENT CATEGORY: BIRADS Category 1: Negative. A letter regarding these results will be sent to the patient by the facility within 30 days. Approximately 10% of breast cancers are not detected by mammography. A normal mammogram should not delay biopsy of a clinically suspicious abnormality. [id number] Electronically Signed: Tobias Mcqueen MD at 9:40 EST , CC: Dr. Sandra Calabrese MD; Dr. Susan Bee DO Tracer Bullet Section Supervisor: Signed Normal [facility] XR CHEST 2 VIEWSon 4 XR CHEST 2 VIEWS ORIGINAL EXAMINATION: TWO XRAY VIEWS OF THE CHEST08/06/2023 12:35 pm XR Chest, two views COMPARISON: 04/23/2019 HISTORY: ORDERING SYSTEM PROVIDED HISTORY: Reason for Exam: shortness of breath, FINDINGS: The lungs show no suspicious nodule, infiltrate, consolidation or mass. Heart size is normal and mediastinal contours are within normal limits for age and projection. No pneumothorax, pleural fluid, or vascular congestion is seen. The bones show no acute process. Other findings include: Lungs are hyperexpanded. Mild S-shaped thoraco lumbar scoliosis. IMPRESSION: No acute cardio pulmonary process. COPD. . Interpreted by: Darek Mishra MD Preliminary Report By: Darek Mishra MD Electronically signed By Darek Mishra MD Dictated Date: 08/06/2023 1:13:04 PM Prelim Date: 08/06/2023 1:14:00 PM Sign Date: 08/06/2023 1:14:00 PM Ordering Provider: LIOR Daily [facility]) [id number] 02-26-2023 Vitamin B1 Whl Bld 104.2 nmol/L Normal 66.5-200.0 [facility] ([place]) Comment on above: Result Comment: This test was developed and its performance characteristics determined by [facility]. It has not been cleared or approved by the Food and Drug Administration. Performed At: [address] [id number] Estuardo Spencer MD Ph:[phone] Performed By: #### V GEMA PRICE #### [address] [address] .Auto Diffon 02-21-2023 Basophil, Absolute 0.1 10 3/mcL Normal 0.0-0.2 [facility] ([place]) Comment on above: Performed By: #### F T3, TSH, CMP, GFR, LIPID, [id number], VIDH, ADIFF, ANEU, CBC, FT4 #### [address] [address] #### FOL, B12 #### [address] [address] Basophils/100 WBC (Bld) 0.9 % Normal 0.0-2.5 [facility]) Comment on above: Performed By: #### F T3, TSH, CMP, GFR, LIPID, [id number], VIDH, ADIFF, ANEU, CBC, FT4 #### [place] [address] #### FOL, B12 #### [address] [address] Eosinophil, Absolute 0.4 10 3/mcL Normal 0.0-0.4 Counts include 234 beds at the [facility] ([place]) Comment on above: Performed By: #### F T3, TSH, CMP, GFR, LIPID, [id number], VIDH, ADIFF, ANEU, CBC, FT4 #### [place] [address] #### FOL, B12 #### [address] [address] Eosinophils/100 WBC (Bld) 7.1 % High 0.0-7.0 [facility] ([place]) Comment on above: Performed By: #### F T3, TSH, CMP, GFR, LIPID, [id number], VIDH, ADIFF, ANEU, CBC, FT4 #### [place] [address] #### FOL, B12 #### [address] [address] Lymphocyte, Absolute 2.1 10 3/mcL Normal 0.8-3.9 Counts include 234 beds at the [facility] ([place]) Comment on above: Performed By: #### F T3, TSH, CMP, GFR, LIPID, [id number], VIDH, ADIFF, ANEU, CBC, FT4 #### [place] [address] #### FOL, B12 #### [address] [address] Lymphocytes/100 WBC (Bld) 38.2 % Normal 10.0-50.0 [facility] ([place]) Comment on above: Performed By: #### F T3, TSH, CMP, GFR, LIPID, [id number], VIDH, ADIFF, ANEU, CBC, FT4 #### [place] [address] #### FOL, B12 #### [address] [address] Monocyte, Absolute 0.5 10 3/mcL Normal 0.2-1.0 [facility] ([place]) Comment on above: Performed By: #### F T3, TSH, CMP, GFR, LIPID, [id number], VIDH, ADIFF, ANEU, CBC, FT4 #### [address] [address] #### FOL, B12 #### [address] [address] Monocytes/100 WBC (Bld) 9.6 % Normal 1.7-13.0 [facility] ([place]) Comment on above: Performed By: #### F T3, TSH, CMP, GFR, LIPID, [id number], VIDH, ADIFF, ANEU, CBC, FT4 #### [address] [address] #### FOL, B12 #### [address] [address] Neutrophils/100 WBC (Bld) 44.2 % Normal 37.0-80.0 [facility] ([place]) Comment on above: Performed By: #### F T3, TSH, CMP, GFR, LIPID, [id number], VIDH, ADIFF, ANEU, CBC, FT4 #### [address] [address] #### FOL, B12 #### [address] [address] .GFRon 02-21-2023 GFR Non- 83 ml/min/1.73sqm Normal [facility] ([place]) Comment on above: Result Comment: GFR Population mean for , [...] 15 mL/min/1.73 square meters Performed By: #### V IDH, LMERLY #### [address] [address] GFR 101 ml/min/1.73sqm Normal [facility] ([place]) Comment on above: Result Comment: GFR Population mean for , [...] 15 mL/min/1.73 square meters Performed By: #### V IDH, LMERLY #### [address] [address] .NEUABSon 02-21-2023 Neutrophil, Absolute 2.4 10 3/mcL Low 2.9-6.2 Counts include 234 beds at the [facility] ([place]) Comment on above: Performed By: #### F T3, TSH, CMP, GFR, LIPID, [id number], VIDH, ADIFF, ANEU, CBC, FT4 #### [address] [address] #### FOL, B12 #### [address] [address] B12on 02-21-2023 Cobalamin (Vitamin B12) [Mass/Vol] 599 pg/mL Normal 211-911 [facility] ([place]) Comment on above: Performed By: #### V IDH, LMERLY #### [address] [address] CBCon 02-21-2023 Erythrocyte distribution width (RBC) [Ratio] 13.0 % Normal 11.5-14.5 [facility] ([place]) Comment on above: Performed By: #### F T3, TSH, CMP, GFR, LIPID, [id number], VIDH, ADIFF, ANEU, CBC, FT4 #### [place] [address] #### FOL, B12 #### [address] [address] Hematocrit (Bld) [Volume fraction] 37.3 % Normal 37.0-47.0 [facility] ([place] Comment on above: Performed By: #### F T3, TSH, CMP, GFR, LIPID, [id number], VIDH, ADIFF, ANEU, CBC, FT4 #### [place] [address] #### FOL, B12 #### [place] [address] Hgb 12.9 G/dL Normal 12.0-16.0 [facility] ([place] Comment on above: Performed By: #### F T3, TSH, CMP, GFR, LIPID, [id number], VIDH, ADIFF, ANEU, CBC, FT4 #### [place] [address] #### FOL, B12 #### [address] [address] MCH (RBC) [Entitic mass] 32.7 pg High 27.0-31.2 [facility] ([place] Comment on above: Performed By: #### F T3, TSH, CMP, GFR, LIPID, [id number], VIDH, ADIFF, ANEU, CBC, FT4 #### [place] [address] #### FOL, B12 #### [place] [address] MCHC 34.5 G/dL Normal 33.0-37.0 [facility] ([place] Comment on above: Performed By: #### F T3, TSH, CMP, GFR, LIPID, [id number], VIDH, ADIFF, ANEU, CBC, FT4 #### [place] [address] #### FOL, B12 #### [address] [address] MCV (RBC) [Entitic vol] 94.8 fL High 80.0-94.0 [facility] ([place] Comment on above: Performed By: #### F T3, TSH, CMP, GFR, LIPID, [id number], VIDH, ADIFF, ANEU, CBC, FT4 #### [address] [address] #### FOL, B12 #### [address] [address] Platelet 218 10 3/mcL Normal 130-400 [facility] ([place]) Comment on above: Performed By: #### F T3, TSH, CMP, GFR, LIPID, [id number], VIDH, ADIFF, ANEU, CBC, FT4 #### [address] [address] #### FOL, B12 #### [place] [address] Platelet mean volume (Bld) [Entitic vol] 9.0 fL Normal 7.4-10.4 [facility] ([place] Comment on above: Performed By: #### F T3, TSH, CMP, GFR, LIPID, [id number], VIDH, ADIFF, ANEU, CBC, FT4 #### [place] [address] #### FOL, B12 #### [place] [address] RBC 3.93 10 6/mcL Low 4.20-5.40 [facility] ([place]) Comment on above: Performed By: #### F T3, TSH, CMP, GFR, LIPID, [id number], VIDH, ADIFF, ANEU, CBC, FT4 #### [place] [address] #### FOL, B12 #### [place] [address] WBC 5.5 10 3/mcL Normal 4.6-10.8 [facility] ([place] Comment on above: Performed By: #### F T3, TSH, CMP, GFR, LIPID, [id number], VIDH, ADIFF, ANEU, CBC, FT4 #### [address] [address] #### FOL, B12 #### [address] [address] [facility] 02-21-2023 Albumin Level 3.9 G/dL Normal 3.4-4.8 [facility] ([place]) Comment on above: Performed By: #### V IDH, LMERLY #### [address] [address] Albumin/Globulin [Mass ratio] 1.0 {ratio} Low 1.1-2.5 [facility] ([place] Comment on above: Performed By: #### V IDH, ISIDOROLY #### [address] [address] ALP [Catalytic activity/Vol] 61 U/L Normal 40-135 [facility] ([place] Comment on above: Performed By: #### V IDH, LMERLY #### [address] [address] ALT [Catalytic activity/Vol] 23 U/L Normal 14-59 [facility] ([place] Comment on above: Performed By: #### V IDH, DARIOERLY #### [address] [address] AST [Catalytic activity/Vol] 18 U/L Normal 10-40 [facility] ([place] Comment on above: Performed By: #### V IDH, LMERLY #### [address] [address] Bili Total 1.8 mg/dL High 0.2-1.0 [facility] ([place] Comment on above: Result Comment: Use of this assay is not recommended for patients undergoing treatment with eltrombopag due to the potential for falsely elevated results. Performed By: #### V IDH, LMERLY #### [address] [address] BUN/Creatinine Ratio 11 ratio Normal 7-27 [facility] ([place]) Comment on above: Performed By: #### V IDH, LMERLY #### [address] [address] Calcium [Mass/Vol] 9.3 mg/dL Normal 8.4-10.2 [facility] ([place]) Comment on above: Performed By: #### V IDH, LMERLY #### [address] [address] Chloride [Moles/Vol] 97 mmol/L Low 98-107 [facility] ([place] Comment on above: Performed By: #### V IDH, LMERLY #### [address] [address] CO2 [Moles/Vol] 29 mmol/L Normal 23-31 [facility] ([place]) Comment on above: Performed By: #### V IDH, LMERLY #### [address] [address] Creatinine [Mass/Vol] 0.70 mg/dL Normal 0.55-1.02 [facility] ([place]) Comment on above: Performed By: #### V IDH, LMERLY #### [address] [address] Electrolyte Balance 9.0 mEq/L Normal 4.0-15.0 [facility] ([place]) Comment on above: Performed By: #### V IDH, LMERLY #### [address] [address] Globulin 3.9 G/dL Normal [facility] ([place] Comment on above: Performed By: #### V IDH, LMERLY #### [address] [address] Glucose [Mass/Vol] 104 mg/dL Normal 80-115 [facility] ([place]) Comment on above: Performed By: #### V IDH, LMERLY #### [address] [address] Potassium [Moles/Vol] 4.4 mmol/L Normal 3.5-5.1 [facility] ([place] Comment on above: Performed By: #### V IDH, LMERLY #### [address] [address] Sodium [Moles/Vol] 135 mmol/L Low 136-145 [facility] ([place] Comment on above: Performed By: #### V IDH, LMERLY #### [address] [address] Total Protein 7.8 G/dL Normal 6.4-8.2 [facility] ([place] Comment on above: Performed By: #### V IDH, LMERLY #### [address] [address] Urea nitrogen [Mass/Vol] 8 mg/dL Normal 7-18 [facility] ([place] Comment on above: Performed By: #### V IDH, LMERLY #### [address] [address] FOLon 02-21-2023 Folate 39.20 ng/mL High 5.38-24.00 [facility] ([place]) Comment on above: Performed By: #### V IDH, LMERLY #### [address] [address] FT3on 02-21-2023 Free T3 [Mass/Vol] 2.48 pg/mL Normal 2.30-4.00 [facility] ([place]) Comment on above: Performed By: #### V IDH, LMERLY #### [address] [address] FT4on 02-21-2023 Free T4 [Mass/Vol] 1.35 ng/dL Normal 0.76-1.46 [facility] ([place]) Comment on above: Performed By: #### F T3, TSH, CMP, GFR, LIPID, [id number], VIDH, ADIFF, ANEU, CBC, FT4 #### [address] [address] #### FOL, B12 #### [address] [address] LABORATORYOrdered By: Amanda Cr on 02-21-2023 Albumin DL <= 20 mg/L (U) [Mass/Vol] 194 mcg/dL Invalid Interpretation Code AO ADM SS Albumin/Creatinine DL <= 20 mg/L (U) [Mass ratio] 9 mcg/mg Normal 0 - 30 mcg/mg AO ADM SS Creatinine (U) [Mass/Vol] 22.7 mg/dL Low 28.0 - 117.0 mg/dL AO ADM SS Cholesterol [Mass/Vol] 276 mg/dL High 0 - 200 mg/dL AO ADM SS Comment on above: Interpretive Data: C holesterol Reference Interval: Less than 200 Desirable 200-239 Borderline high risk 240 and above High risk Cholesterol in HDL [Mass/Vol] 99 mg/dL High 40 - 60 mg/dL AO ADM SS Cholesterol in LDL [Mass/Vol] 166 mg/dL High 0 - 130 mg/dL AO ADM SS Triglyceride [Mass/Vol] 56 mg/dL Normal 0 - 150 mg/dL AO ADM SS Comment on above: Interpretive Data: T riglyceride Reference Interval: Less than 150 Normal 150-199 Borderline high risk 200-499 High risk 500 or higher Very high risk LABORATORYOrdered By: SYSTEM SYSTEM on 02-21-2023 25-hydroxyvitamin D3 [Mass/Vol] 58.1 ng/mL Invalid Interpretation Code AO ADM SS Comment on above: Interpretive Data: I nterpretive Values Based on Total 25(OH) Vitamin D: Deficient <20 ng/mL Insufficient 20 - <30 ng/mL Sufficient 30-100 ng/mL Albumin BCP dye [Mass/Vol] 3.9 G/dL Normal 3.4 - 4.8 G/dL AO ADM SS Albumin/Globulin [Mass ratio] 1.0 {ratio} Low 1.1 - 2.5 ratio AO ADM SS ALP [Catalytic activity/Vol] 61 U/L Normal 40 - 135 U/L AO ADM SS ALT With P-5'-P [Catalytic activity/Vol] 23 U/L Normal 14 - 59 U/L AO ADM SS AST With P-5'-P [Catalytic activity/Vol] 18 U/L Normal 10 - 40 U/L AO ADM SS Basophil, Absolute 0.1 103/mcL Normal 0.0 - 0.2 10^3/mcL AO Workflow SS Basophils/100 WBC (Bld) 0.9 % Normal 0.0 - 2.5 % AO Workflow SS Bilirubin [Mass/Vol] 1.8 mg/dL High 0.2 - 1 .0 mg/dL AO ADM SS Comment on above: Interpretive Data: U se of this assay is not recommended for patients undergoing treatment with eltrombopag due to the potential for falsely elevated results. Calcium [Mass/Vol] 9.3 mg/dL Normal 8.4 - 10. 2 mg/dL AO ADM SS Chloride [Moles/Vol] 97 mmol/L Low 98 - 10 7 mmol/L AO ADM SS CO2 [Moles/Vol] 29 mmol/L Normal 23 - 31 mmol/L AO ADM SS Cobalamin (Vitamin B12) [Mass/Vol] 599 pg/mL Normal 211 - 911 pg/mL AH ADM SS Creatinine [Mass/Vol] 0.70 mg/dL Normal 0.55 - 1.02 mg/dL AO ADM SS Electrolyte Balance 9.0 mEq/L Normal 4.0 - 15 .0 mEq/L AO ADM SS Eosinophil, Absolute 0.4 103/mcL Normal 0.0 - 0 .4 10^3/mcL AO Workflow SS Eosinophils/100 WBC (Bld) 7.1 % High 0.0 - 7.0 % AO Workflow SS Erythrocyte distribution width (RBC) [Ratio] 13.0 % Normal 11.5 - 14.5 % AO Workflow SS Folate [Mass/Vol] 39.20 ng/mL High 5.38 - 24. 00 ng/mL AH ADM SS Free T3 [Mass/Vol] 2.48 pg/mL Normal 2.30 - 4. 00 pg/mL AO ADM SS Free T4 [Mass/Vol] 1.35 ng/dL Normal 0.76 - 1. 46 ng/dL AO ADM SS GFR/1.73 sq M.predicted among blacks MDRD (S/P/Bld) [Vol rate/Area] 101 ml/min/1.73sqm Invalid Interpretation Code AO Chemistry S Comment on above: Interpretive Data: GFR Population mean for , Non- Americans Ages 20-29 = 116 mL/min/1.73 sq.m. Ages 30-39 = 107 mL/min/1.73 sq.m. Ages 40-49 = 99 mL/min/1.73 sq.m. Ages 50-59 = 93 mL/min/1.73 sq.m. Ages 60-69 = 85 mL/min/1.73 sq.m. Ages 70+ = 75 mL/min/1.73 sq.m. Chronic Kidney Disease: Less than 60 mL/min/1.73 square meters End Stage Renal Disease: Less than 15 mL/min/1.73 square meters GFR/1.73 sq M.predicted among non-blacks MDRD (S/P/Bld) [Vol rate/Area] 83 ml/min/1.73sqm Invalid Interpretation Code AO Chemistry S Comment on above: Interpretive Data: GFR Population mean for , Non- Americans Ages 20-29 = 116 mL/min/1.73 sq.m. Ages 30-39 = 107 mL/min/1.73 sq.m. Ages 40-49 = 99 mL/min/1.73 sq.m. Ages 50-59 = 93 mL/min/1.73 sq.m. Ages 60-69 = 85 mL/min/1.73 sq.m. Ages 70+ = 75 mL/min/1.73 sq.m. Chronic Kidney Disease: Less than 60 mL/min/1.73 square meters End Stage Renal Disease: Less than 15 mL/min/1.73 square meters Globulin 3.9 G/dL Invalid Interpretation Code AO ADM SS Glucose [Mass/Vol] 104 mg/dL Normal 80 - 115 mg/dL AO ADM SS Hematocrit (Bld) [Volume fraction] 37.3 % Normal 37.0 - 47.0 % AO Workflow SS Hemoglobin (Bld) [Mass/Vol] 12.9 G/dL Normal 12.0 - 16.0 G/dL AO Workflow SS Lymphocyte, Absolute 2.1 103/mcL Normal 0.8 - 3 .9 10^3/mcL AO Workflow SS Lymphocytes/100 WBC (Bld) 38.2 % Normal 10.0 - 50.0 % AO Workflow SS MCH (RBC) [Entitic mass] 32.7 pg High 27.0 - 31.2 pg AO Workflow SS MCHC 34.5 G/dL Normal 33.0 - 37.0 G/dL AO Workflow SS MCV (RBC) [Entitic vol] 94.8 fL High 80.0 - 94.0 fL AO Workflow SS Monocyte, Absolute 0.5 103/mcL Normal 0.2 - 1.0 10^3/mcL AO Workflow SS Monocytes/100 WBC (Bld) 9.6 % Normal 1.7 - 13.0 % AO Workflow SS Neutrophil, Absolute 2.4 103/mcL Low 2.9 - 6 .2 10^3/mcL AO Workflow SS Neutrophils/100 WBC (Bld) 44.2 % Normal 37.0 - 80.0 % AO Workflow SS Platelet mean volume (Bld) [Entitic vol] 9.0 fL Normal 7.4 - 10.4 fL AO Workflow SS Platelets (Bld) [#/Vol] 218 103/mcL Normal 130 - 400 10^3/mcL AO Workflow SS Potassium [Moles/Vol] 4.4 mmol/L Normal 3.5 - 5.1 mmol/L AO ADM SS Protein [Mass/Vol] 7.8 G/dL Normal 6.4 - 8.2 G/dL AO ADM SS RBC (Bld) [#/Vol] 3.93 106/mcL Low 4.20 - 5.4 0 10^6/mcL AO Workflow SS Sodium [Moles/Vol] 135 mmol/L Low 136 - 145 mmol/L AO ADM SS TSH Qn 1.82 m[IU]/L Normal 0.36 - 3.74 mcIU/mL AO ADM SS Urea nitrogen [Mass/Vol] 8 mg/dL Normal 7 - 18 mg/dL AO ADM SS Urea nitrogen/Creatinine [Mass ratio] 11 ratio Normal 7 - 27 ratio AO ADM SS WBC (Bld) [#/Vol] 5.5 103/mcL Normal 4.6 - 10.8 10^3/mcL AO Workflow SS LIPIDon 02-21-2023 Cholesterol [Mass/Vol] 276 mg/dL High 0-200 [facility] ([place]) Comment on above: Result Comment: Chol esterol Reference Interval: Less than 200 Desirable 200-239 Borderline high risk 240 and above High risk Performed By: #### V ALBERT, LMERLY #### [place] [address] [place], [place] [address] Cholesterol in HDL [Mass/Vol] 99 mg/dL High 40-60 [facility] ([place] Comment on above: Performed By: #### V IDH, LMERLY #### [facility] [address] [place], [place] [address] Cholesterol in LDL [Mass/Vol] 166 mg/dL High 0-130 [facility] ([place]) Comment on above: Performed By: #### V IDH, LMERLY #### [address] [address] Triglyceride [Mass/Vol] 56 mg/dL Normal 0-150 [facility]) Comment on above: Result Comment: Trig lyceride Reference Interval: Less than 150 Normal 150-199 Borderline high risk 200-499 High risk 500 or higher Very high risk Performed By: #### V IDH, LMERLY #### [address] [address] MALBRon 02-21-2023 U Creatinine 22.7 mg/dL Low 28.0-117.0 [facility] ([place]) Comment on above: Performed By: #### M ALBR #### [address] [address] U Microalb 194 mcg/dL Normal [facility]) Comment on above: Performed By: #### M ALBR #### [address] [address] U Ratio Alb/Cre 9 mcg/mg Normal 0-30 [facility] ([place]) Comment on above: Performed By: #### M ALBR #### [address] [address] TSHon 02-21-2023 TSH Qn 1.82 m[IU]/L Normal 0.36-3.74 [facility] ([place]) Comment on above: Performed By: #### F T3, TSH, CMP, GFR, LIPID, [id number], VIDH, ADIFF, ANEU, CBC, FT4 #### [address] [address] #### FOL, B12 #### [place] [address] VIDHon 02-21-2023 Vit. D 25-Hydroxy 58.1 ng/mL Normal [facility] ([place]) Comment on above: Result Comment: Inte rpretive Values Based on Total 25(OH) Vitamin D: Deficient <20 ng/mL Insufficient 20 - <30 ng/mL Sufficient 30-100 ng/mL Performed By: #### V IDH, LMERELIANA #### [address] [address] Miryam 09-08-2022 Lyme IgG/IgM AB Negative Normal Negative [facility] ([place]) Comment on above: Result Comment: Rece nt infection with B. burgdorferi sensu lato cannot be excluded if the specimen collected within four weeks after the onset of signs and symptoms or within six weeks after a known tick exposure. Clinical and epidemiological correlation is required. Performed By: [facility] [address] [place] [address] Dewaxer: Reginald Hunter III#: [id number] Performed By: #### V ALBERT, GEMA #### [address] [address] LABORATORYOrdered By: Amanda Cr on 09-07-2022 Albumin DL <= 20 mg/L (U) [Mass/Vol] 201 mcg/dL Invalid Interpretation Code AO ADM SS Albumin/Creatinine DL <= 20 mg/L (U) [Mass ratio] 11 mcg/mg Invalid Interpretation Code 0 - 30 mcg/mg AO ADM SS Creatinine (U) [Mass/Vol] 17.8 mg/dL Invalid Interpretation Code 28.0 - 117.0 mg/dL AO ADM SS LABORATORYOrdered By: SYSTEM SYSTEM on 09-07-2022 25-hydroxyvitamin D3 [Mass/Vol] 61.1 ng/mL Invalid Interpretation Code AO ADM SS Comment on above: Interpretive Data: I nterpretive Values Based on Total 25(OH) Vitamin D: Deficient <20 ng/mL Insufficient 20 - <30 ng/mL Sufficient 30-100 ng/mL MALBRon 09-07-2022 U Creatinine 17.8 mg/dL Low 28.0-117.0 [facility] ([place]) Comment on above: Performed By: #### M ALBR #### [address] [address] U Microalb 201 mcg/dL Normal [facility] ([place]) Comment on above: Performed By: #### M ALBR #### [facility] [place] [address] [place], [place] [address] U Ratio Alb/Cre 11 mcg/mg Normal 0-30 [facility] ([place]) Comment on above: Performed By: #### M ALBR #### [facility] [address] [address] VIDHon 09-07-2022 Vit. D 25-Hydroxy 61.1 ng/mL Normal [facility] ([place]) Comment on above: Result Comment: Inte rpretive Values Based on Total 25(OH) Vitamin D: Deficient <20 ng/mL Insufficient 20 - <30 ng/mL Sufficient 30-100 ng/mL Performed By: #### V IDH, LMERLY #### [address] [address] LABORATORYOrdered By: Dianna Jamison on 11-01-2021 Albumin BCP dye [Mass/Vol] 4.1 G/dL Invalid Interpretation Code 3.4 - 4.8 G/dL AO ADM SS Albumin/Globulin [Mass ratio] 1.2 {ratio} Invalid Interpretation Code 1.1 - 2.5 ratio AO ADM SS ALP [Catalytic activity/Vol] 55 U/L Invalid Interpretation Code 40 - 135 U/L AO ADM SS ALT With P-5'-P [Catalytic activity/Vol] 28 U/L Invalid Interpretation Code 14 - 59 U/L AO ADM SS AST With P-5'-P [Catalytic activity/Vol] 22 U/L Invalid Interpretation Code 10 - 40 U/L AO ADM SS Basophil, Absolute 0.0 103/mcL Invalid Interpretation Code 0.0 - 0.2 10^3/mcL AO Workflow SS Basophils/100 WBC (Bld) 0.5 % Invalid Interpretation Code 0.0 - 2.5 % AO Workflow SS Bilirubin [Mass/Vol] 1.3 mg/dL Invalid Interpretation Code 0.2 - 1.0 mg/dL AO ADM SS Calcium [Mass/Vol] 9.0 mg/dL Invalid Interpretation Code 8.4 - 10.2 mg/dL AO ADM SS Chloride [Moles/Vol] 98 mmol/L Invalid Interpretation Code 98 - 107 mmol/L AO ADM SS Cholesterol [Mass/Vol] 273 mg/dL Invalid Interpretation Code 0 - 200 mg/dL AO ADM SS Cholesterol in HDL [Mass/Vol] 99 mg/dL Invalid Interpretation Code 40 - 60 mg/dL AO ADM SS Cholesterol in LDL [Mass/Vol] 164 mg/dL Invalid Interpretation Code 0 - 130 mg/dL AO ADM SS CO2 [Moles/Vol] 30 mmol/L Invalid Interpretation Code 23 - 31 mmol/L AO ADM SS Creatinine [Mass/Vol] 0.71 mg/dL Invalid Interpretation Code 0.55 - 1.02 mg/dL AO ADM SS Electrolyte Balance 8.0 mEq/L Invalid Interpretation Code 4.0 - 15.0 mEq/L AO ADM SS Eosinophil, Absolute 0.6 103/mcL Invalid Interpretation Code 0.0 - 0.4 10^3/mcL AO Workflow SS Eosinophils/100 WBC (Bld) 9.9 % Invalid Interpretation Code 0.0 - 7.0 % AO Workflow SS Erythrocyte distribution width (RBC) [Ratio] 13.6 % Invalid Interpretation Code 11.5 - 14.5 % AO Workflow SS Globulin 3.5 G/dL Invalid Interpretation Code AO ADM SS Glucose [Mass/Vol] 96 mg/dL Invalid Interpretation Code 80 - 115 mg/dL AO ADM SS Hematocrit (Bld) [Volume fraction] 38.0 % Invalid Interpretation Code 37.0 - 47.0 % AO Workflow SS Hemoglobin (Bld) [Mass/Vol] 13.0 G/dL Invalid Interpretation Code 12.0 - 16.0 G/dL AO Workflow SS Lymphocyte, Absolute 2.5 103/mcL Invalid Interpretation Code 0.8 - 3.9 10^3/mcL AO Workflow SS Lymphocytes/100 WBC (Bld) 39.1 % Invalid Interpretation Code 10.0 - 50.0 % AO Workflow SS MCH (RBC) [Entitic mass] 32.2 pg Invalid Interpretation Code 27.0 - 31.2 pg AO Workflow SS MCHC 34.2 G/dL Invalid Interpretation Code 33.0 - 37.0 G/dL AO Workflow SS MCV (RBC) [Entitic vol] 94.0 fL Invalid Interpretation Code 80.0 - 94.0 fL AO Workflow SS Monocyte, Absolute 0.7 103/mcL Invalid Interpretation Code 0.2 - 1.0 10^3/mcL AO Workflow SS Monocytes/100 WBC (Bld) 10.6 % Invalid Interpretation Code 1.7 - 13.0 % AO Workflow SS Neutrophil, Absolute 2.6 103/mcL Invalid Interpretation Code 2.9 - 6.2 10^3/mcL AO Workflow SS Neutrophils/100 WBC (Bld) 39.9 % Invalid Interpretation Code 37.0 - 80.0 % AO Workflow SS Platelet mean volume (Bld) [Entitic vol] 9.0 fL Invalid Interpretation Code 7.4 - 10.4 fL AO Workflow SS Platelets (Bld) [#/Vol] 225 103/mcL Invalid Interpretation Code 130 - 400 10^3/mcL AO Workflow SS Potassium [Moles/Vol] 4.6 mmol/L Invalid Interpretation Code 3.5 - 5.1 mmol/L AO ADM SS Protein [Mass/Vol] 7.6 G/dL Invalid Interpretation Code 6.4 - 8.2 G/dL AO ADM SS RBC (Bld) [#/Vol] 4.04 106/mcL Invalid Interpretation Code 4.20 - 5.40 10^6/mcL AO Workflow SS Sodium [Moles/Vol] 136 mmol/L Invalid Interpretation Code 136 - 145 mmol/L AO ADM SS Triglyceride [Mass/Vol] 52 mg/dL Invalid Interpretation Code 0 - 150 mg/dL AO ADM SS TSH Qn 1.74 m[IU]/L Invalid Interpretation Code 0.36 - 3.74 mcIU/mL AO ADM SS Urea nitrogen [Mass/Vol] 10 mg/dL Invalid Interpretation Code 7 - 18 mg/dL AO ADM SS Urea nitrogen/Creatinine [Mass ratio] 14 ratio Invalid Interpretation Code 7 - 27 ratio AO ADM SS Vit. D 25-Hydroxy 65.2 ng/mL Invalid Interpretation Code AO ADM SS WBC (Bld) [#/Vol] 6.4 103/mcL Invalid Interpretation Code 4.6 - 10.8 10^3/mcL AO Workflow SS LABORATORYOrdered By: SYSTEM SYSTEM on 11-01-2021 GFR 99 ml/min/1.73sqm Invalid Interpretation Code AO Chemistry S GFR Non- 82 ml/min/1.73sqm Invalid Interpretation Code AO Chemistry S Encounters Encounter Date Encounter Type Care Provider Facility Start: 12-05-2024 End: 12-05-[address] SURI DANG DO Facility:[facility] [place] Start: 12-05-2024 End: 12-05-[address] SURI DANG DO [facility] Start: 07-28-2024 ambulatory Susan Bee Facility :[facility] Start: 07-18-2024 End: 07-18-[address] Susan Bee DO Work Phone: [facility] Work Phone: Start: 07-18-2024 End: 07-18-[address] Susan Bee DO -Cat Scan [facility] Work Phone: Start: 07-18-2024 End: 07-18-2024 ambulatory Susan Cristal Facility:[facility] Start: 06-24-2024 End: 06-24-2024 ambulatory SUSAN BERUMENNavdeep COLLIER Facility:[facility] Start: 06-24-2024 End: 06-24-2024 Patient encounter procedure SUSAN BEE DO [facility] Start: 06-06-2024 End: 06-06-2024 ambulatory SUSAN CRISTAL COLLIER Facility:[facility] Start: 06-06-2024 End: 06-06-2024 Patient encounter procedure SUSAN CRISTAL DO [facility] Start: 12-27-2023 End: 12-27-2023 ambulatory Sandra Calabrese Facility:[facility] Start: 08-06-2023 End: 08-06-2023 ambulatory LIOR PADILLA [employer] Facility:[facility] Start: 08-06-2023 End: 08-06-2023 Patient encounter procedure LIOR PADILLA [employer]AL [employer]ISH[employer] WORKER [facility] Start: 02-21-2023 End: 02-21-2023 ambulatory SUSAN BEE DO Facility:[facility] Start: 02-21-2023 End: 02-21-2023 Patient encounter procedure SUSAN CRISTAL [facility] Start: 12-21-2022 End: 12-21-2022 ambulatory [facility] Work Phone: Start: 12-21-2022 End: 12-21-2022 Patient encounter procedure [facility] Work Phone: Start: 09-07-2022 End: 09-07-2022 ambulatory SUSAN BEE DO Facility:[facility] Start: 09-07-2022 End: 09-07-2022 Patient encounter procedure SUSAN BEE DO [facility] Start: 12-02-2021 End: 12-02-2021 ambulatory [facility] Work Phone: Start: 12-02-2021 End: 12-02-2021 Patient encounter procedure [facility] Start: 11-01-2021 End: 11-01-2021 Patient encounter procedure SUSAN BEE DO [facility] Procedures Date Procedure Procedure Detail Performing Clinician Start: 07-18-2024 CT angiography of co ronary arteries Dr. Susan Rojassay Work Phone: Start: 12-21-2022 Screening mammography Start: 12-02-2021 Screening mammography Start: 01-18-2018 Wrist region structu re (body structure) SUSAN BEE DO Comment on above: Right, Dr. Garrett daniel Xcapsl ctrc rmvl ins j io lens prosth w/ecp SUSAN BEE DO Comment on above: bilateral 03/20/24 and 04/17/24 Plan of Treatment Date Care Activity Detail Author Patient Education RAD RN Underst anding Coronary Calcium Scan [facility] Work Phone: Patient referral [facility] Work Phone: Immunizations Immunization Date Immunization Notes Care Provider Nyla hinojosa 02-20-2023 influenza, injectabl e, quadrivalent, contains preservative; Translations: [Fluarix PF Quadrivalent ] [facility] 12-12-2022 influenza, injectabl e, quadrivalent, contains preservative; Translations: [Fluarix PF Quadrivalent ] SUSAN BEE DO [facility] 02-09-2021 SARS-CoV-2 mRNA (tozinameran) vaccine SUSAN BEE DO [facility] 07-29-2020 SARS-CoV-2 mRNA (tozinameran) vaccine SUSAN CRISTAL DO [facility] Comment on above: Result Comment: 2020: [id number] 07-08-2020 SARS-CoV-2 mRNA (tozinameran) vaccine SUSAN CRISTAL DO [facility] Comment on above: Result Comment: 2020: [id number] 10-17-2018 pneumococcal conjuga te vaccine, 13 valent; Translations: [Prevnar 13] SUSAN BEE DO [facility] 11-17-2011 influenza virus vaccine, unspecified formulation SUSAN CRISTAL DO [facility] 11-12-2010 tetanus toxoid, redu akanksha diphtheria toxoid, and acellular pertussis vaccine, adsorbed [facility] DO [facility] Payers Date Payer Category Payer Private Health Insurance [facility] [id number] 2024 Self-pay [id number] 2024 Unknown [id number] 2023 Self-pay [id number] 2023 Medicare [id number] 2022 Medicare [id number] 2022 Unknown [id number] 2018 Medicare [id number] 2016 Unknown JOVANNI [id number] 1953 [id number] 2.16.8 [id number] 1955 Unknown [id number] 2.16.8 [id number] 1955 Unknown [id number] 2.16.8 [id number] 1955 Unknown [id number] 2.16. [id number] 1955 Unknown [id number] 2.16.8 [id number] 1955 Unknown [id number] 2.16.8 [id number] Unknown [facility] [id number] Unknown [id number] 2.16.8 [id number] Unknown [id number] 2.16.8 [id number] Unknown [id number] 2.16.8 [id number] Unknown [id number] 2.16.8 [id number] Unknown [id number] 2.16.8 [id number] Social History Date Type Detail Facility Start: 06-24-2019 End: 12-04-2024 Tobacco smoking status Never smoked tobacco (finding) [facility] Start: 1955 Sex Assigned At Female [facility] Start: 07-03-2018 End: 07-08-2022 Tobacco smoking status NHIS [facility] Start: 07-09-2020 [facility] Start: 07-09-2020 [facility]-sm[facility] Sexual Orientation [facility] Start: 08-07-2018 Sex Female (finding) [facility] Medical Equipment Procedure Code Equipment Code Equipment Origin al Text Equipment Identifier Dates 2.4 MM [address] RAD[address] ELVIN FDA Start: 01-18-2018 2.4 MM ANGLE LOC JAMIE SCREW FDA Start: 01-18-2018 2.4MM ANGLE LOCK ING SCREW FDA Start: 01-18-2018 2.4MM CORTEX SCR EW SELF-TAPPIN FDA Start: 01-18-2018 2.4MM CORTEX SCR EW SELF-TAPPIN FDA Start: 01-18-2018 2.7MM CORTEX SCR EW SELF TAPPIN FDA Start: 01-18-2018 2.7MM CORTEX SCR EW SELF TAPPIN FDA Start: 01-18-2018 2.7MM CORTEX SCR EW SELF TAPPIN FDA Start: 01-18-2018 2.4 MM [address] RAD[address] EVLIN FDA Start: 01-18-2018 2.4 MM ANGLE LOC JAMIE SCREW FDA Start: 01-18-2018 2.4MM ANGLE LOCK ING SCREW FDA Start: 01-18-2018 2.4MM CORTEX SCR EW SELF-TAPPIN FDA Start: 01-18-2018 2.4MM CORTEX SCR EW SELF-TAPPIN FDA Start: 01-18-2018 2.7MM CORTEX SCR EW SELF TAPPIN FDA Start: 01-18-2018 2.7MM CORTEX SCR EW SELF TAPPIN FDA Start: 01-18-2018 2.7MM CORTEX SCR EW SELF TAPPIN FDA Start: 01-18-2018 2.4 MM [address] RAD[address] ELVIN FDA Start: 01-18-2018 2.4 MM ANGLE LOC JAMIE SCREW FDA Start: 01-18-2018 2.4MM ANGLE LOCK ING SCREW FDA Start: 01-18-2018 2.4MM CORTEX SCR EW SELF-TAPPIN FDA Start: 01-18-2018 2.4MM CORTEX SCR EW SELF-TAPPIN FDA Start: 01-18-2018 2.7MM CORTEX SCR EW SELF TAPPIN FDA Start: 01-18-2018 2.7MM CORTEX SCR EW SELF TAPPIN FDA Start: 01-18-2018 2.7MM CORTEX SCR EW SELF TAPPIN FDA Start: 01-18-2018 Clinical Notes 12-13-2022 to 07-18-2024 RadiologyRadiologyRadiologyRadiologyRadiology Note Date & Type Note Facility 07-18-2024 Radiology Diagnostic study note [facility] Imaging Services [address] [facility] [place], [place] [address] Limited Chest CT Cardiac Only MR#: [id number] Acct: [id number] Name: MECHELLE ÁLVAREZ Rep #: [id number] : 1955 F 68 From: Pranva Argueta MD PCP: Dr. Susan Bee DO Status: REG CLI Study:Limited Chest CT Cardiac Only Date of E xam: 07/18/24 Exam# [id number] Ordering Dr: Susan Bee DO PROCEDURE: LIMITED CHEST CT CARDIAC ONLY REASON FOR EXAM: SCREENING FOR HEART DISEASE TECHNIQUE: CT for coronary artery calcium scoring. One or more dose reduction techniques were used (e.g., Automated exposure control, adjustment of the mA and/or kV according to patient size, use of iterative reconstruction technique). COMPARISON: None. CT/Limited Chest CT Cardiac Only IMPRESSION: Limited imaging of the lungs demonstrates no acute process. No pleural effusion or pneumothorax is seen in visualized areas. No adenopathy is noted. The visualized upper abdomen demonstrates no significant abnormality. Reading Location: [address] CC: Dr. Susan Bee DO ~ [employer] Section Supervisor: Signed [facility] 08-06-2023 Note ORIGINAL EXAMINATION: TWO XRAY VIEWS OF THE CHEST08/06/2023 12:35 pm XR Chest, two views COMPARISON: 04/23/2019 HISTORY: ORDERING SYSTEM PROVIDED HISTORY: Reason for Exam: shortness of breath, FINDINGS: The lungs show no suspicious nodule, infiltrate, consolidation or mass. Heart size is normal and mediastinal contours are within normal limits for age and projection. No pneumothorax, pleural fluid, or vascular congestion is seen. The bones show no acute process. Other findings include: Lungs are hyperexpanded. Mild S-shaped thoraco lumbar scoliosis. IMPRESSION: No acute cardio pulmonary process. COPD. . Interpreted by: Darek Mishra MD Preliminary Report By: Darek Mishra MD Electronically signed By Darek Mishra MD Dictated Date: 08/06/2023 1:13:04 PM Prelim Date: 08/06/2023 1:14:00 PM Sign Date: 08/06/2023 1:14:00 PM Ordering Provider: LIOR VALERIE [facility] 02-21-2023 Evaluation + Plan note Diagnostic Tests PendingVitamin B1 (Thiamine), Blood 02/21/23 Future Scheduled TestsMA Mammo Screening Bilateral w/ Girish 12/13/22BD Bone Density DEXA Axial Skeleton 10/18/22 [facility] 12-13-2022 Evaluation + Plan note Future Scheduled TestsMA Mammo Screening Bilateral w/ Girish 12/13/22BD Bone Density DEXA Axial Skeleton 10/18/22 [facility] Evaluation + Plan note Future Appointments Appointment Date:11/16/2021 09:00:00 AM Scheduled Provider:SANDRA CALABRESE MD Location: [facility] Appointment Type: OV Annual Exam Diagnostic Tests PendingMicroalbumin Level Urine 11/01/21 [facility] Evaluation + Plan note Future Appointments Appointment Date:03/05/2023 09:30:00 AM Scheduled Provider:SUSAN BEE DO Location:[facility] Appointment Type: OV Follow Up Diagnostic Tests PendingLyme AB Early Disease 09/07/22 Future Scheduled TestsMA Mammo Screening Bilateral w/ Girish 11/16/21 [facility] Evaluation + Plan note Future Appointments Appointment Date:11/25/2024 10:00:00 AM Scheduled Provider:SURI DANG DO Location:[facility] Appointment Type:PC OV Future Scheduled TestsBD Bone Density DEXA Axial Skeleton Adult (21 yrs or older) 06/03/24CT Coronary Calcium Score w/o Contrast 06/04/24 [facility] Evaluation + Plan note Future Appointments Appointment Date:12/30/2024 09:00:00 AM Scheduled Provider:SANDRA CALABRESE MD Location: [facility] Appointment Type: OV Annual Exam Appointment Date:06/12/2025 08:00:00 AM Scheduled Provider:SURI DANG DO Location:[facility] Appointment Type: Wellness Medicare Future Scheduled TestsBD Bone Density DEXA Axial Skeleton Adult (21 yrs or older) 06/03/24CT Coronary Calcium Score w/o Contrast 06/04/24 [facility] Evaluation note No assessment inform ation available [facility] Work Phone: Hospital course Narrative No data available for this section [facility] Hospital Discharge instructions No data available for this section [facility] Progress note No data available for this section [facility] Reason for referral (narrative) No reason for referral information available [facility] Work Phone: Chief Complaint and Reason for Visit Chief Complaint SCREENING Chief Complaint SCREEN Chief Complaint Admit Date SCREENING July 18, 2024 1:29p m Advance Directives No Advanced Directives Records Found Advance Directive Response Recorded Date/ Time Living Will No January 21 10:50am Power of Nurse Care Manager Yes January 16, 2018 9:49am Advance Directive Response Recorded Date/ Time Living Will No July 08, 2022 1 1:46am Power of Nurse Care Manager No July 08, 2022 11:46am Summary Purpose Family History No Family History Records Found Additional Source Comments Care Team (unrecognized sect ion and content) Care Team Personnel Name: SUSAN BEE DO Position: P4 Physician - Primary Care Med Service: Active Provider Member Role: Primary Care Physician Address: Address: [address] [place] [address]- [place] Care Team Related Persons Name: JAROD ÁLVAREZ Goals (unrecognized section and content) Goals may be documented in a n alternate section Patient Care team informatio n (unrecognized section and content) Team Status: Active Member Role Status Dates Dr. Susan Bee DO Family Provider Active Dr. Susan Bee DO Primary Care Provider Active Team Status: Inactive Member Role Status Dates Dr. Susan Bee DO Primary Care Provider Active Dr. Sandra aClabrese MD Attending Provider, Referring Pr ovider Active Team Status: Active Member Role Status Dates Dr. Susan Bee DO Primary Care Provider Active Team Status: Inactive Member Role Status Dates Dr. Susan Bee DO Primary Care Provider Active Start: July 18, 2024 End: July 18, 2024 Dr. Susan Bee DO Attending Provider Active Start: July 18, 2024 End: July 18, 2024 Dr. Susan Bee DO Referring Provider Active Start: July 18, 2024 End: July 18, 2024 INFORMATION SOURCE (unrecogn ized section and content) DATE CREATED AUTHOR 08/09/2023 [facility] ([place] DATE CREATED AUTHOR AUTHOR'S ORGANIZ ATION 08/08/2024 [facility] DATE CREATED AUTHOR AUTHOR'S ORGANIZ ATION 12/07/2024 [facility] FOR RECORDS PERTAINING TO PATIENTS WHO ARE OR HAVE BEEN ENROLLED IN A CHEMICAL DEPENDENCY/SUBSTANCEABUSE PROGRAM, SOME INFORMATION MAY BE OMITTED. This clinical summary was aggregated from multiple sources. Caution should be exercised in using it in the provision of clinical care. This summary normalizes information from multiple sources, and as a consequence, information in this document may materially change the coding, format and clinical context of patient data. In addition, data may be omitted in some cases. CLINICAL DECISIONS SHOULD BE BASED ON THE PRIMARY CLINICAL RECORDS. [employer] provides no warranty or guarantee of the accuracy or completeness of information in this document.
[2024-12-28 14:52] VITALS: BP 131/78; PULSE 78; RESP 16; TEMP 37.1; O2SAT 99
== END 2024-12-28 15:16 | disposition home or self-care (01) ==
PROVIDERS: Emergency Provider Emergency Medicine; Visit Provider Emergency Medicine
DX: S52.612A Displaced fracture of left ulna styloid process, initial encounter for closed fracture (principal); I10 Essential (primary) hypertension; W17.81XA Fall down embankment (hill), initial encounter; Y93.01 Activity, walking, marching and hiking; Y92.89 Other specified places as the place of occurrence of the external cause; E03.9 Hypothyroidism, unspecified; Z79.890 Hormone replacement therapy; Z79.899 Other long term (current) drug therapy; S52.502A Unspecified fracture of the lower end of left radius, initial encounter for closed fracture
CPT/HCPCS: 29125; 73110; 99283